=== PATIENT | female | born 1980 | race Hispanic/Latino ===

== ENCOUNTER 2016-07-17 17:45 | Inpatient (IN) | payer OTHER ==
[2016-07-17 18:03] VITALS: BMI 32.9
[2016-07-17] MEDS ORDERED: Sodium Chloride 0.9% 1,000 ML IV STA (18:58)
[2016-07-17 19:38] LABS: ADD MANUAL DIFF? NO
[2016-07-17 19:38] LABS: URINE BILIRUBIN NEGATIVE (NEGATIVE); URINE BLOOD LARGE (NEGATIVE); URINE GLUCOSE (UA) NEGATIVE (NEGATIVE); URINE KETONE NEGATIVE (NEGATIVE); URINE LEUKOCYTE ESTERASE SMALL Leu/uL (NEGATIVE); URINE PROTEIN 30 mg/dL (<30 mg/dL); URINE UROBILINOGEN 0.2 E.U./dL (<1 E.U./dL)
[2016-07-17 19:43] LABS: BASO # 0.02 K/mm3 (0.0-2.0); BASO % 0.1 % (0.0-3.0); EOS # 0.1 (0.0-0.7); EOS % 0.6 % (1.5-5.0); GRAN # 12.57 (1.4-6.5); GRAN % 83.9 % (50.0-68.0); LYMPH # 1.4 (1.2-3.4); LYMPH % 9.1 % (22.0-35.0); MEAN CORPUSCULAR HGB CONC 32.9 g/dl (31.0-37.0); MEAN PLATELET VOLUME 11.4 fl (7.0-11.0); MONO # 0.9 (0.1-0.6); MONO % 6.3 % (1.0-6.0); PLATELET COUNT 261 10^3/uL (120.0-450.0); RED CELL DISTRIBUTION WIDTH 14.4 % (11.5-14.5)
[2016-07-17 19:52] LABS: URINE APPEARANCE SL CLOUDY (CLEAR); URINE COLOR YELLOW (YELLOW)
[2016-07-17 19:58] LABS: URINE WBC 25 - 30 /hpf (0-6)
[2016-07-17 19:59] LABS: URINE BACTERIA LARGE (NEG)
[2016-07-17 20:05] LABS: INR 0.99 (0.93-1.08); PARTIAL THROMBOPLASTIN TIME 26.5 Seconds (23.7-30.8)
--- NOTE | 2016-07-17 20:40 | CT ---
EXAM: CT Abdomen and Pelvis Without Intravenous Contrast CLINICAL HISTORY: 35 years old, female; Pain; Abdominal pain; Flank; Right; Prior surgery; Surgery date: 6+ months; Surgery type: ; Additional info: Right back/abdominal pain TECHNIQUE: Axial computed tomography images of the abdomen and pelvis without intravenous contrast. This CT exam was performed using one or more of the following dose reduction techniques: automated exposure control, adjustment of the mA and/or kV according to patient size, and/or use of iterative reconstruction technique. Coronal and sagittal reformatted images were created and reviewed. EXAM DATE/TIME: 07/17/2016 6:59 PM COMPARISON: There are no prior studies for comparison. FINDINGS: Lower thorax: Heart size is normal. There is dependent atelectasis at the lung bases. There is a small hiatal hernia. ABDOMEN: Liver: unremarkable Gallbladder and bile ducts: Gallbladder is poorly visualized and appears collapsed. Common bile duct is unremarkable. Pancreas: unremarkable Spleen: unremarkable Adrenals: unremarkable Kidneys and ureters: There are bilateral nonobstructing renal stones. There is obstructive uropathy on the right. There is a 7 mm stone at the right ureterovesical junction. Left kidney and ureter are unremarkable. Stomach and bowel: Stomach is partially distended with semisolid food. Rotation is normal. There is no obstruction. Appendix is unremarkable. Terminal ileum is unremarkable.Colon is incompletely distended which limits evaluation. Appendix: See above. PELVIS: Bladder: Bladder is partially distended. Reproductive: Uterus and adnexal structures are unremarkable. ABDOMEN and PELVIS: Intraperitoneal space: There is no free air or free fluid. Bones/joints: There are no acute osseous abnormalities Soft tissues: There is a small fat containing umbilical hernia. Aorta and inferior vena cava are unremarkable. There are multiple small collateral vessels in the groin. Vasculature: There are calcified phleboliths. Lymph nodes: There is shotty adenopathy. IMPRESSION: 7 mm obstructing stone, right ureterovesical junction; small bilateral nonobstructing renal stones Additional findings as described above.
[2016-07-17 22:08] LABS: ALB/GLOB RATIO 1.1 (1.1-1.8); ALKALINE PHOSPHATASE 106 U/L (38-133); ALT/SGPT 43 U/L (7-56); AST/SGOT 26 U/L (15-39); BILIRUBIN,TOTAL 0.6 mg/dL (0.2-1.3); BLOOD UREA NITROGEN 10 mg/dL (7-21); CALCIUM 8.9 mg/dL (8.4-10.5); CARBON DIOXIDE 27 mmol/L (21-33); CHLORIDE 104 mmol/L (98-107); GFR AFRICAN-AMERICAN > 60; GLUCOSE,RANDOM 142 mg/dL (70-110); POTASSIUM 3.9 mmol/L (3.6-5.0); SODIUM 139 mmol/L (132-148); TOTAL PROTEIN 7.3 g/dL (5.8-8.3)
[2016-07-17] MEDS ORDERED: Morphine 4 mg/ml ISec IVP STA (23:11)
[2016-07-17] MEDS ORDERED: Morphine 4 mg/ml ISec ONE (23:16)
[2016-07-18] MEDS ORDERED: Propofol 10 mg/ml Inj (20 ML) ONE (16:18)
[2016-07-18] MEDS ORDERED: Midazolam 2 MG/2 ML VIAL ONE (16:18)
[2016-07-18] MEDS ORDERED: Iohexol 240 (50 ml) ONE (16:26)
[2016-07-18] MEDS ORDERED: cefTRIAXone (Rocephin) 1 gm Inj ONE (16:32)
[2016-07-18] MEDS ORDERED: Oxycodone/Acetaminophen 5/325 mg Tab PO PRN (22:05)
[2016-07-19] MEDS ORDERED: cefTRIAXone 1 gm 1 GM/100 ML BAG IVPB ONE ×2 (08:00→08:02)
[2016-07-19] MEDS ORDERED: Gentamicin 160 MG in Sodium Chloride 0.9% 100 ML IVPB ONE (09:00)
[2016-07-19 10:33] VITALS: BP 114/64; PULSE 79; RESP 18; TEMP 100; O2SAT 97
[2016-07-19 12:24] LABS: HEMATOCRIT 41.1 % (36.0-48.0); MEAN CELL VOLUME 82.2 fL (80.0-105.0); MEAN CORPUSCULAR HEMOGLOBIN 27.4 pg (25.0-35.0); MEAN CORPUSCULAR HGB CONC 33.3 g/dl (31.0-37.0); MEAN PLATELET VOLUME 10.9 fl (7.0-11.0); RED CELL DISTRIBUTION WIDTH 14.5 % (11.5-14.5); WHITE BLOOD COUNT 11.5 10^3/ul (4.5-11.0)
--- NOTE | 2016-07-19 13:43 | RAD ---
PROCEDURE: Fluoroscopy up to 1 hour HISTORY: RETROGRADE / RIGHT STENT INSERTION COMPARISON: TECHNIQUE: Fluoroscopy was provided in the operating room. 41 seconds of fluoroscopy time were used. The study was performed by Dr. Mihir Bain. 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 There is a single dilated ureter. There is placement of a right ureteral stent IMPRESSION: As above
[2016-07-19 14:49] LABS: ALKALINE PHOSPHATASE 111 U/L (38-133); ALT/SGPT 61 U/L (7-56); AST/SGOT 32 U/L (15-39); BILIRUBIN,TOTAL 1.1 mg/dL (0.2-1.3); BLOOD UREA NITROGEN 10 mg/dL (7-21); CALCIUM 9.1 mg/dL (8.4-10.5); CARBON DIOXIDE 26 mmol/L (21-33); CHLORIDE 104 mmol/L (98-107); GFR AFRICAN-AMERICAN > 60; GLUCOSE,RANDOM 97 mg/dL (70-110); POTASSIUM 3.4 mmol/L (3.6-5.0); SODIUM 140 mmol/L (132-148); TOTAL PROTEIN 7.5 g/dL (5.8-8.3)
--- NOTE | 2016-07-22 15:40 | OP ---
PROCEDURE DATE: 07/18/2016 PREOPERATIVE DIAGNOSES: Urolithiasis, severe renal colic, kidney stone, 7 mm obstructing stone. POSTOPERATIVE DIAGNOSES: Urolithiasis, severe renal colic, kidney stone, 7 mm obstructing stone. PROCEDURE: Exam under anesthesia, cystoscopy, retrograde pyelogram, insertion of double-J stent. COMPLICATIONS: There were no complications. BLOOD LOSS: Less than 10 mL. At termination of procedure, the double-J stent is in good location. FINDINGS: A ureteral stone and hydronephrosis. INDICATIONS: See the ____ for the details and the consultation. Very pleasant lady presented yester day with severe renal colic and severe pain. She is now still having ongoing pain. We discussed options and we discussed ESWL. We discussed cyst o, stent insertion. With the ongoing pain and the obstruction, we are here now for the above procedu re. PROCEDURE: After obtaining informed consent, the patient placed on the table, routine monitors place d, timeouts were called to confirm patient and positioning. The neurourologist film was performed. Cystoscope via the urethra, identified the ureteral orifice. Retrograde pyelogram is performed. Wir e is passed up to the kidney. Double-J stent is then inserted. There were no complications. The patient tolerated without complication. See the consultation note and see the plans. I discussed options with the patient. The plan is for an outpatient ESWL in [place] and then further plans will follow. Mihir Bain MD cc: [id number] TT: 07/22/2016 15:39:37 sn
--- NOTE | 2016-07-23 08:14 | CON ---
DATE: 07/18/2016 REASON FOR CONSULTATION: Severe renal colic. A very pleasant lady who is presenting with severe renal colic. We discussed options with the patien t. See below. We are going to bring her to the OR now. The patient is a very pleasant lady. She has no history of stones. She is 35 years old. She has [employer]. She works as a ____. She came in with severe renal colic, found a stone and we discussed options and she is now going to _ ___. See the plans listed below in the consult. PAST MEDICAL AND SURGICAL HISTORY: As listed on the chart. REVIEW OF SYSTEMS: As above. SOCIAL HISTORY: Unremarkable. PHYSICAL EXAMINATION: GENERAL: Well-nourished female. She is currently resting comfortably. The physical exam is otherwise unremarkable. No real CVA tenderness. Pelvic exam shows ____ no pelvic or rectal masses. LABORATORIES: See chart. CT scan, see chart. ____ stone, hydro, severe pain. We discussed options with the patient. The plan from a urology standpoint is emergency to the operating room. We are going to do a cysto, s tent insertion. I explained to the patient that most likely we will not be touching the stone today. I just want to drain the kidney and then further plans will follow. We discussed risks, benefits,___ _. We discussed ESWL. We discussed cysto, stent. ____ ureteroscopy, lithotripsy. Discussed all th e different options, open surgery even but we mentioned to her that I think the best ____ for the pat ient will be for a cysto and a stent insertion and then further plans will follow depending on findin gs. I did explain if the stone has moved forward, if the stone is in such a position that we can get it out, we certainly will. But, otherwise, most likely we are just going to plan for a cysto and a stent insertion. Mihir Bain MD cc: [id number] TT: 07/22/2016 15:46:52 Confirmation # [id number] Dictation # [id number] sn
--- NOTE | 2016-08-05 10:12 | OP ---
PROCEDURE DATE: 08/05/2016 PREOPERATIVE DIAGNOSES: Urolithiasis, hematuria, hydronephrosis, severe flank pain. POSTOPERATIVE DIAGNOSES: Urolithiasis, hematuria, hydronephrosis, severe flank pain. PROCEDURES: Examination under anesthesia, cystoscopy, right retrograde pyelogram, insertion of right double-J stent. SURGEON: Dr. Mihir Bain. COMPLICATIONS: There were no complications. INDICATIONS: See history and physical for further details and consultation. A very pleasant lady wh o presents with severe renal colic. We discussed options with the patient and we are planning to place a stent. After discussing the risks, benefits and treatment alternatives including cystoscopy, ureteroscopy, l aser lithotripsy, all the various options were discussed with the patient. After discussing those op tions with the patient, the patient is here for the above procedure. DESCRIPTION OF PROCEDURE: After obtaining informed consent, the patient was placed on the table, rout ine monitors placed, timeouts were called to confirm the patient, the positioning, etc. Hooking Machine Operator films. The films were submitted to radiologist. Cystoscope via the urethra. Ureteral orifices identified. Retrograde pyelograms performed then a do uble-J stent is deployed. At termination of the procedure, we did ____ and it is in good location. The patient tolerated the procedure well without complication. Mihir Bain MD cc: [id number] TT: 08/05/2016 10:11:26 ca
--- NOTE | 2016-10-01 09:26 | DS ---
See history and physical and procedure note. A pleasant lady who came in with renal colic and severe pain and swelling. After discussing all options, risks, benefits and , ------ dictated procedure notes and history and physical. At this point, the patient is stable for discharge home. HOSPITAL COURSE: Identified ------. See previous notes. At the point of discharge, she is stable. Routine monitoring for stone disease, straining urine, hydration, analgesics, and antibiotics are provided to the patient. Risks and benefits of future treatments are all explained in great detail. Mihir Bain MD
== END 2016-07-19 18:22 | disposition home or self-care (01) | DRG 324 ==
LOC: ED 17:45 → ERH 21:32 → 3RSO 07-18 03:36
PROVIDERS: ADMIT Urology; ATTEND Urology
PROC: BT1D1ZZ Fluoroscopy of Right Kidney, Ureter and Bladder using Low Osmolar Contrast (ICD-10-PCS; 2016-07-18)
PROC: 0T768DZ Dilation of Right Ureter with Intraluminal Device, Via Natural or Artificial Opening Endoscopic (ICD-10-PCS; principal; 2016-07-18 15:00)
DX: N13.2 Hydronephrosis with renal and ureteral calculous obstruction (principal)

== ENCOUNTER 2016-07-28 15:58 | Emergency (ER) | payer OTHER ==
[2016-07-28 15:59] VITALS: BMI 32.9
[2016-07-28 16:13] VITALS: TEMP 98.7
[2016-07-28] MEDS ORDERED: Sodium Chloride 0.9% 1,000 ML IV STA (16:20)
--- NOTE | 2016-07-28 16:42 | ED PDOC ---
Arrival/HPI - General Chief Complaint: Back Pain Time Seen by Provider: 07/28/16 16:02 Historian: Patient - History of Present Illness Narrative History of Present Illness (Text): 07/28/16 16:37 This is a 35yo female with history of recent kidney stone on 07/17/16. States she had lithotripsy and stent placement last week. she was scheduled to go back to [place], where the stent was placed on Friday, but decided to come back to the ED today secondary to the persistent and worsening right back/flank pain. States she was not getting relief from the Oxycodone she was given. She denies nausea, vomiting, fever, chills, urinary symptoms, hematuria, any other complaint. Past Medical History - Provider Review Nursing Documentation Reviewed: Yes - Infectious Disease Hx of Infectious Diseases: None - Tetanus Immunization Tetanus Immunization: Unknown - Past Medical History Past Medical History: No Previous - Cardiac Hx Cardiac Disorders: No Hx Angina: No Hx Atrial Fibrillation: No Hx Cardiac Arrhythmia: No Hx Circulatory Problems: No Hx Congestive Heart Failure: No Hx NM: No Hx Heart Murmur: No Hx Heart Transplant: No Hx Hypertension: No Hx Hypotension: No Hx Internal Defibrillator: No Hx Mitral Valve Prolapse: No Hx Pacemaker: No Hx Peripheral Edema: No Hx Peripheral Vascular Disease: No - Pulmonary Hx Respiratory Disorders: No Hx Asthma: No Hx Bronchitis: No Hx Chronic Obstructive Pulmonary Disease (COPD): No Hx Emphysema: No Hx Lung Cancer: No Hx Pneumonia: No Hx Pulmonary Edema: No Hx Pulmonary Embolism: No Hx Respiratory Aspiration: No Hx Respiratory Tract Infection: No Hx Sleep Apnea: No Hx Tuberculosis: No - Neurological Hx Neurological Disorder: No Hx Alzheimer's Disease: No HX Cerebrovascular Accident: No Hx Dementia: No Hx Dizziness: No Hx Meningitis: No Hx Migraine: No Hx Multiple Sclerosis: No Hx Paralysis: No Hx Parkinson's Disease: No Hx Seizures: No Hx Syncope: No Hx Transient Ischemic Attacks (TIA): No Hx Vertigo: No - HEENT Hx HEENT Disorder: Yes Hx Blind: No Hx Cataracts: No Hx Deafness: No Hx Difficulty Chewing: No Hx Epistaxis: No Hx Glaucoma: No Hx Macular Degeneration: No Other/Comment: HEARING IMPAIRED - Renal Hx Renal Disorder: No Hx Dialysis: No Hx Kidney Stones: No Hx Neurogenic Bladder: No Hx Pyelonephritis: No Hx Renal Cancer: No Hx Renal Failure: No - Endocrine/Metabolic Hx Endocrine Disorders: Yes Hx Adrenal Cancer: No Hx Diabetes Insipidus: No (gestational on this ) - Hematological/Oncological Hx Blood Disorders: No - Integumentary Hx Dermatological Disorder: No - Musculoskeletal/Rheumatological Hx Musculoskeletal Disorders: Yes Other/Comment: HEEL SPURS - Gastrointestinal Hx Gastrointestinal Disorders: No - Genitourinary/Gynecological Hx Genitourinary Disorders: No - Psychiatric Hx Psychophysiologic Disorder: No Hx Depression: No Hx Emotional Abuse: No Hx Physical Abuse: No Hx Substance Use: No - Past Surgical History Past Surgical History: No Previous - Surgical History Hx Section: Yes Other/Comment: right kidney stent - Anesthesia Hx Anesthesia: Yes - Suicidal Assessment Feels Threatened In Home Enviroment: No Family/Social History - Physician Review Nursing Documentation Reviewed: Yes Family/Social History: Unknown Family HX Smoking Status: Never Smoked Hx Alcohol Use: No Hx Substance Use: No Hx Substance Use Treatment: No Allergies/Home Meds Allergies/Adverse Reactions: Allergies No Known Allergies Allergy (Verified 07/28/16 16:10) Review of Systems - Physician Review All systems were reviewed & negative as marked: Yes - Review of Systems Constitutional: Normal Eyes: Normal ENT: Normal Respiratory: Normal Cardiovascular: Normal Gastrointestinal: Abdominal Pain (right flank pain). absent: Constipation, Diarrhea, Nausea, Vomiting, Hematochezia, Hematemesis Genitourinary Female: Normal Musculoskeletal: Back Pain Skin: Normal Neurological: Normal Endocrine: Normal Hemo/Lymphatic: Normal Psychiatric: Normal Physical Exam Vital Signs Reviewed: Yes Vital Signs Temp Pulse Resp BP Pulse Ox 07/28/16 16:12 98.7 F 94 H 17 122/93 H 96 Temperature: Afebrile Blood Pressure: Normal Pulse: Regular Respiratory Rate: Normal Appearance: Positive for: Well-Appearing, Non-Toxic, Comfortable Pain Distress: None Mental Status: Positive for: Alert and Oriented X 3 - Systems Exam Head: Present: Atraumatic, Normocephalic Pupils: Present: PERRL Extroacular Muscles: Present: EOMI Conjunctiva: Present: Normal Mouth: Present: Moist Mucous Membranes Neck: Present: Normal Range of Motion Respiratory/Chest: Present: Clear to Auscultation, Good Air Exchange. No: Respiratory Distress, Accessory Muscle Use Cardiovascular: Present: Regular Rate and Rhythm, Normal S1, S2. No: Murmurs Abdomen: Present: Normal Bowel Sounds. No: Tenderness, Distention, Peritoneal Signs, Rebound, Guarding, McBurney's Point Tender, Rovsing's Sign Present Back: Present: CVA Tenderness (Right CVAT). No: Midline Tenderness, Paraspinal Tenderness Upper Extremity: Present: Normal Inspection. No: Cyanosis, Edema Lower Extremity: Present: Normal Inspection. No: Edema Neurological: Present: GCS=15, CN II-XII Intact, Speech Normal Skin: Present: Warm, Dry, Normal Color. No: Rashes Psychiatric: Present: Alert, Oriented x 3, Normal Insight, Normal Concentration Medical Decision Making ED Course and Treatment: 07/28/16 17:15 IMPRESSION: Status post double-J catheter placement on the right in good position. Previously identified distal right ureteral calculus is no longer seen. Edematous right ureter. Persistent right hydronephrosis. Stable multiple small less than 4 mm and bilateral upper tract calculi. 07/28/16 17:28 PT presented with stated history. Her pain was controlled in ED. PT mentioned that she was nervous because she met somebody that had similar procedure who told her that her stent moved on re evaluation. The CT result was however DW the pt and she was re assured. Result and finding was DW the [place]. He states patient should be DC home. States he plan to take out the stent on Friday. He recommends that pt should be DC home and advised to continue with her current medication. Pt have 2tabs of percocet left. she will be DC home with #7tabs of percocet and advised to mix it with Ibuprofen. Advised to f/u with Dr. bain. TRT ED for any new or worsening symptoms. She expressed understanding all all instructions. She is currently on abx. Advised to continue with the abx. - Lab Interpretations Lab Results: 07/28/16 16:40 07/28/16 16:40 Lab Results 07/28/16 16:55: Urine HCG, Qual Negative 07/28/16 16:55: Urine Color Red, Urine Appearance Bloody, Urine pH 7.0, Ur Specific [place] 1.020, Urine Protein >=300 H, Urine Glucose (UA) Negative, Urine Ketones Trace H, Urine Blood Large H, Urine Nitrate Positive H, Urine Bilirubin Moderate H, Urine Urobilinogen 1.0 H, Ur Leukocyte Esterase Moderate H , Urine RBC Tntc, Urine WBC 2 - 5, Ur Epithelial Cells 1 - 3, Urine Bacteria Mod 07/28/16 16:40: Sodium 138, Potassium 4.0, Chloride 101, Carbon Dioxide 27, Anion Gap 14, BUN 10, Creatinine 0.5, Est GFR ( Amer) > 60, Est GFR (Non- Af Amer) > 60, Random Glucose 124 H, Calcium 9.8, Total Bilirubin 0.6, AST 35, ALT 89 H, Alkaline Phosphatase 127, Total Protein 7.8, Albumin 4.3, Globulin 3.5 , Albumin/Globulin Ratio 1.2 07/28/16 16:40: WBC 10.2, RBC 5.39, Hgb 14.6, Hct 43.6, MCV 80.9, MCH 27.1, MCHC 33.5, RDW 13.7, Plt Count 306, MPV 11.0, Gran % 74.8 H, Lymph % (Auto) 16.9 L, Quay % (Auto) 6.6 H, Eos % (Auto) 1.5, Baso % (Auto) 0.2, Gran # 7.63 H , Lymph # 1.7, Quay # 0.7 H, Eos # 0.2, Baso # 0.02 - RAD Interpretation Radiology Orders: 07/28/16 16:19 ABD & PELVIS W/O PO OR IV CONT [CT] Stat - Medication Orders Current Medication Orders: Discontinued Medications Sodium Chloride (Sodium Chloride 0.9%) 1,000 mls @ 999 mls/hr IV .Q1H1M STA Stop: 07/28/16 17:20 Last Admin: 07/28/16 16:43 Dose: 999 mls/hr Ketorolac Tromethamine (Toradol) 30 mg IVP STAT STA Stop: 07/28/16 16:21 Last Admin: 07/28/16 16:42 Dose: 30 mg Disposition/Present on Arrival - Present on Arrival Any Indicators Present on Arrival: No History of DVT/PE: No History of Uncontrolled Diabetes: No Urinary Catheter: No History of Decub. Ulcer: No History Surgical Site Infection Following: None - Disposition Have Diagnosis and Disposition been Completed?: Yes Diagnosis: Renal colic Disposition: HOME/ ROUTINE Disposition Time: 17:35 Patient Plan: Discharge Condition: STABLE Discharge Instructions (ExitCare): Renal Colic (ED) Additional Instructions: Follow up with Dr. bain continue with your medications Return to ED for any new or worsening symptoms Prescriptions: oxyCODONE/Acetaminophen [Percocet 5/325 mg Tab] 1 ea PO Q6 #7 tab Referrals: Ilia Franks JD, MD [Primary Care Provider] - Follow up with primary Rishabh Bain MD [Staff Provider] - Follow up with primary
[2016-07-28 16:48] LABS: ADD MANUAL DIFF? NO
[2016-07-28 16:50] LABS: BASO # 0.02 K/mm3 (0.0-2.0); BASO % 0.2 % (0.0-3.0); EOS # 0.2 (0.0-0.7); EOS % 1.5 % (1.5-5.0); GRAN # 7.63 (1.4-6.5); GRAN % 74.8 % (50.0-68.0); HEMATOCRIT 43.6 % (36.0-48.0); LYMPH # 1.7 (1.2-3.4); LYMPH % 16.9 % (22.0-35.0); MEAN CELL VOLUME 80.9 fL (80.0-105.0); MEAN CORPUSCULAR HEMOGLOBIN 27.1 pg (25.0-35.0); MEAN CORPUSCULAR HGB CONC 33.5 g/dl (31.0-37.0); MONO # 0.7 (0.1-0.6); MONO % 6.6 % (1.0-6.0); PLATELET COUNT 306 10^3/uL (120.0-450.0); RED CELL DISTRIBUTION WIDTH 13.7 % (11.5-14.5); WHITE BLOOD COUNT 10.2 10^3/ul (4.5-11.0)
[2016-07-28 17:01] LABS: ALB/GLOB RATIO 1.2 (1.1-1.8); ALKALINE PHOSPHATASE 127 U/L (38-133); ALT/SGPT 89 U/L (7-56); AST/SGOT 35 U/L (15-39); BILIRUBIN,TOTAL 0.6 mg/dL (0.2-1.3); BLOOD UREA NITROGEN 10 mg/dL (7-21); CALCIUM 9.8 mg/dL (8.4-10.5); CARBON DIOXIDE 27 mmol/L (21-33); CHLORIDE 101 mmol/L (98-107); GFR AFRICAN-AMERICAN > 60; GLUCOSE,RANDOM 124 mg/dL (70-110); SODIUM 138 mmol/L (132-148); TOTAL PROTEIN 7.8 g/dL (5.8-8.3)
[2016-07-28 17:06] LABS: URINE BILIRUBIN MODERATE (NEGATIVE); URINE BLOOD LARGE (NEGATIVE); URINE GLUCOSE (UA) NEGATIVE (NEGATIVE); URINE KETONE TRACE mg/dL (NEGATIVE); URINE LEUKOCYTE ESTERASE MODERATE Leu/uL (NEGATIVE); URINE PROTEIN >=300 mg/dL (<30 mg/dL)
[2016-07-28 17:09] LABS: URINE APPEARANCE BLOODY (CLEAR); URINE COLOR RED (YELLOW)
--- NOTE | 2016-07-28 17:11 | CT ---
PROCEDURE: CT Abdomen and Pelvis without intravenous or oral contrast HISTORY: Right flank pain Relevant interventional procedure(s): Right stent insertion performed 07/18/2016 COMPARISON: 07/17/2016. CT abdomen and pelvis. Summary of findings on the comparison examination 7 mm obstructing stone, right ureterovesical junction; small bilateral nonobstructing renal stones TECHNIQUE: Technique Contiguous axial images of the abdomen and pelvis without intravenous or oral contrast. Radiation dose: Total exam DLP = 619.43 mGy-cm. This CT exam was performed using one or more of the following dose reduction techniques: Automated exposure control, adjustment of the mA and/or kV according to patient size, and/or use of iterative reconstruction technique. FINDINGS: LOWER THORAX: Unremarkable. LIVER: Unremarkable. GALLBLADDER AND BILE DUCTS: Unremarkable. PANCREAS: Unremarkable. No ductal dilatation. SPLEEN: Unremarkable. No splenomegaly. ADRENALS: Unremarkable. KIDNEYS AND URETERS: Previously identified distal ureteral calculus right ureterovesical junction is no longer seen. Satisfactory position of double-J stent on the right. Persistent right hydroureter, hydronephrosis. The right ureter remains dilated and edematous. Stable upper tract calculi bilaterally. BLADDER: Unremarkable. No calculus. REPRODUCTIVE: Unremarkable. APPENDIX: No abnormalities to suggest acute appendicitis. No right lower quadrant inflammatory processes identified. STOMACH AND BOWEL: Unremarkable. No obstruction. No gross mural thickening. PERITONEUM: Unremarkable. No significant fluid collection. No free air. LYMPH NODES: Unremarkable. No enlarged lymph nodes. VASCULATURE: Unremarkable. No aortic aneurysm. BONES: No acute fracture. OTHER FINDINGS: None . IMPRESSION: Status post double-J catheter placement on the right in good position. Previously identified distal right ureteral calculus is no longer seen. Edematous right ureter. Persistent right hydronephrosis. Stable multiple small less than 4 mm and bilateral upper tract calculi.
[2016-07-28 17:18] LABS: URINE RBC TNTC /hpf (0-2)
[2016-07-28 17:19] LABS: URINE BACTERIA MOD (NEG)
[2016-07-28 17:54] VITALS: BP 118/76; PULSE 86; RESP 18; O2SAT 98
== END 2016-07-28 17:54 | disposition home or self-care (01) ==
LOC: ED 15:58
DX: N23 Unspecified renal colic (principal)
CPT/HCPCS: 74176; 80053; 81001; 84703; 85025; 87086; 96361; 96374; 99283; J1885; J7040

== ENCOUNTER 2016-10-01 22:35 | Observation (INO) | payer OTHER ==
[2016-10-01 22:36] VITALS: BMI 32.9
--- NOTE | 2016-10-01 23:11 | ED PDOC ---
Arrival/HPI - General Historian: Patient <Ankur Dillard - Last Filed: 10/02/16 02:03> <Ronak Cornell - Last Filed: 10/02/16 03:08> - General Chief Complaint: Back Pain Time Seen by Provider: 10/01/16 22:58 - History of Present Illness Narrative History of Present Illness (Text): 10/01/16 23:37 36yo F with PMHx significant for kidney stones here for evaluation of right flank pain. Patient states that she has had right sided kidney stones in July 2016, was treated with uretral stent and lithrotripsy by Dr. James Bain. She has been doing fine since then, stent was removed after 1 week s/p lithotripsy and she is scheduled for follow up with Dr. Bain in November. Patient states that she has started to have similar right sided flank pain for the past two days. Pain feels like dull, squeezing type of pain, does not radiate. She also c/o urinary frequency and urgency. Denies any dysuria. No fevers, no chills. No CP/SOB. No Nausea, no vomiting, no abdominal pain. Urologist: James Bain PMD: Josi Franks PMHx: Kidney Stones PSHx: R Ureteral stent (removed), Lithotripsy NKDA (Ankur Dillard) Past Medical History - Provider Review Nursing Documentation Reviewed: Yes - Infectious Disease Hx of Infectious Diseases: None - Tetanus Immunization Tetanus Immunization: Unknown - Past Medical History Past Medical History: No Previous - Cardiac Hx Cardiac Disorders: No Hx Angina: No Hx Atrial Fibrillation: No Hx Cardiac Arrhythmia: No Hx Circulatory Problems: No Hx Congestive Heart Failure: No Hx [place]: No Hx Heart Murmur: No Hx Heart Transplant: No Hx Hypertension: No Hx Hypotension: No Hx Internal Defibrillator: No Hx Mitral Valve Prolapse: No Hx Pacemaker: No Hx Peripheral Edema: No Hx Peripheral Vascular Disease: No - Pulmonary Hx Respiratory Disorders: No Hx Asthma: No Hx Bronchitis: No Hx Chronic Obstructive Pulmonary Disease (COPD): No Hx Emphysema: No Hx Lung Cancer: No Hx Pneumonia: No Hx Pulmonary Edema: No Hx Pulmonary Embolism: No Hx Respiratory Aspiration: No Hx Respiratory Tract Infection: No Hx Sleep Apnea: No Hx Tuberculosis: No - Neurological Hx Neurological Disorder: No Hx Alzheimer's Disease: No HX Cerebrovascular Accident: No Hx Dementia: No Hx Dizziness: No Hx Meningitis: No Hx Migraine: No Hx Multiple Sclerosis: No Hx Paralysis: No Hx Parkinson's Disease: No Hx Seizures: No Hx Syncope: No Hx Transient Ischemic Attacks (TIA): No Hx Vertigo: No - HEENT Hx HEENT Disorder: Yes Hx Blind: No Hx Cataracts: No Hx Deafness: No Hx Difficulty Chewing: No Hx Epistaxis: No Hx Glaucoma: No Hx Macular Degeneration: No Other/Comment: HEARING IMPAIRED - Renal Hx Renal Disorder: No Hx Dialysis: No Hx Kidney Stones: Yes Hx Neurogenic Bladder: No Hx Pyelonephritis: No Hx Renal Cancer: No Hx Renal Failure: No - Endocrine/Metabolic Hx Endocrine Disorders: Yes Hx Adrenal Cancer: No Hx Diabetes Insipidus: No (gestational on this ) - Hematological/Oncological Hx Blood Disorders: No - Integumentary Hx Dermatological Disorder: No - Musculoskeletal/Rheumatological Hx Musculoskeletal Disorders: Yes Other/Comment: HEEL SPURS - Gastrointestinal Hx Gastrointestinal Disorders: No - Genitourinary/Gynecological Hx Genitourinary Disorders: No - Psychiatric Hx Psychophysiologic Disorder: No Hx Depression: No Hx Emotional Abuse: No Hx Physical Abuse: No Hx Substance Use: No - Past Surgical History Past Surgical History: No Previous - Surgical History Hx Section: Yes Other/Comment: right kidney stent - Anesthesia Hx Anesthesia: Yes - Suicidal Assessment Feels Threatened In Home Enviroment: No <Ankur Dillard - Last Filed: 10/02/16 02:03> Family/Social History - Physician Review Nursing Documentation Reviewed: Yes Family/Social History: No Known Family HX Smoking Status: Never Smoked Hx Alcohol Use: No Hx Substance Use: No Hx Substance Use Treatment: No <Ankur Dillard - Last Filed: 10/02/16 02:03> Allergies/Home Meds <Ankur Dillard - Last Filed: 10/02/16 02:03> <Ronak Cornell - Last Filed: 10/02/16 03:08> Allergies/Adverse Reactions: Allergies No Known Allergies Allergy (Verified 07/28/16 16:10) Home Medications: Home Meds Medication Instructions Recorded Confirmed No Known Home Med 10/01/16 10/01/16 Review of Systems - Physician Review All systems were reviewed & negative as marked: Yes - Review of Systems Constitutional: absent: Fevers Gastrointestinal: absent: Diarrhea, Nausea, Vomiting Genitourinary Female: Frequency. absent: Dysuria <Ankur Dillard - Last Filed: 10/02/16 02:03> Physical Exam - Systems Exam Head: Present: Atraumatic, Normocephalic Extroacular Muscles: Present: EOMI Conjunctiva: Present: Normal Mouth: Present: Moist Mucous Membranes Neck: Present: Normal Range of Motion Respiratory/Chest: Present: Clear to Auscultation, Good Air Exchange. No: Respiratory Distress, Accessory Muscle Use, Wheezes, Rhonchi Cardiovascular: Present: Normal S1, S2 Abdomen: Present: Normal Bowel Sounds. No: Tenderness, Distention, Peritoneal Signs, Rebound, Guarding Back: Present: CVA Tenderness (Right sided CVA tenderness) Lower Extremity: Present: Normal Inspection. No: Edema, CALF TENDERNESS Neurological: Present: GCS=15 Skin: Present: Warm, Dry, Normal Color Psychiatric: Present: Alert, Oriented x 3 <Ankur Dillard - Last Filed: 10/02/16 02:03> Medical Decision Making <Ankur Dillard - Last Filed: 10/02/16 02:03> <Ronak Cornell - Last Filed: 10/02/16 03:08> ED Course and Treatment: 10/01/16 23:48 36yo F with R Flank pain - Toradol - CT Abd/pelvis - UA, Urine HCG - CBC/CMP 10/02/16 02:00 CT - Right hydronephrosis, 5mm ureteral calc at UV jxn Call placed to Dr. Josi Franks's service 10/02/16 02:[address] Franks. He accepts the patient to his service. He agrees with IVF, IV Abx and Urology consult. Patient to be admitted to Med/Surg. 10/02/16 02:04 Discussed case with Patient. She understands and agrees with plan. All questions and concerns addressed. (Ankur Dillard) In agreement with resident note which contains more details about the patient. Patient was seen and evaluated with resident. Came up with plan and treatment together. Patient is a 36 year old female who presents to the emergency department complaining of right flank pain. CT shows renal colic. Case discussed with Dr. Franks who is aware and agrees with the plan to admit patient to medsurg. (Ronak Cornell) - Lab Interpretations Lab Results: 10/01/16 23:58 10/01/16 23:58 Lab Results 10/01/16 23:58: Urine Color Yellow, Urine Appearance Sl cloudy, Urine pH 7.5, Ur Specific [place] 1.015, Urine Protein Negative, Urine Glucose (UA) Negative, Urine Ketones Negative, Urine Blood Trace-intact H, Urine Nitrate Negative, Urine Bilirubin Negative, Urine Urobilinogen 0.2, Ur Leukocyte Esterase Negative , Urine RBC 0 - 2, Urine WBC 0 - 2, Ur Epithelial Cells 0 - 2, Amorphous Sediment Small, Urine HCG, Qual Negative 10/01/16 23:58: Sodium 140, Potassium 4.0, Chloride 102, Carbon Dioxide 29, Anion Gap 13, BUN 11, Creatinine 0.6, Est GFR ( Amer) > 60, Est GFR (Non- Af Amer) > 60, Random Glucose 132 H, Calcium 9.4, Total Bilirubin 0.5, AST 22, ALT 44, Alkaline Phosphatase 103, Total Protein 7.4, Albumin 4.0, Globulin 3.3, Albumin/Globulin Ratio 1.2 10/01/16 23:58: WBC 9.9, RBC 5.12, Hgb 13.9, Hct 42.5, MCV 83.0, MCH 27.1, MCHC 32.7, RDW 14.4, Plt Count 241, MPV 10.9, Gran % 67.9, Lymph % (Auto) 22.5, [place] % (Auto) 8.3 H, Eos % (Auto) 1.1 L, Baso % (Auto) 0.2, Gran # 6.75 H, Lymph # 2.2, [place] # 0.8 H, Eos # 0.1, Baso # 0.02 - RAD Interpretation Radiology Orders: 10/01/16 23:19 ABD & PELVIS W/O PO OR IV CONT [CT] Stat - Medication Orders Current Medication Orders: Sodium Chloride (Sodium Chloride 0.9%) 1,000 mls @ 100 mls/hr IV .Q10H [facility] Last Admin: 10/02/16 02:38 Dose: 100 mls/hr Ceftriaxone Sodium (Rocephin 1 Gram Ivpb) 1 gm in 100 mls @ 100 mls/hr IVPB DAILY [facility] PRN Reason: Protocol Morphine Sulfate (Morphine) 2 mg IVP Q4H PRN PRN Reason: Pain, moderate (4-7) Ondansetron HCl (Zofran Inj) 4 mg IVP Q6H PRN PRN Reason: Nausea/Vomiting Discontinued Medications Ketorolac Tromethamine (Toradol) 30 mg IVP STAT STA Stop: 10/01/16 23:22 Last Admin: 10/02/16 00:17 Dose: 30 mg <Ankur Dillard - Last Filed: 10/02/16 02:03> - PA / ADMITTING OFFICE ESCORT / Resident Statement / has reviewed & agrees with the documentation as recorded. / has examined the patient and agrees with the treatment plan. <Ronak Cornell - Last Filed: 10/02/16 03:08> - Scribe Statement Jodi Orr Provider Scribe Attestation: All medical record entries made by the Scribe were at my direction and personally dictated by me. I have reviewed the chart and agree that the record accurately reflects my personal performance of the history, physical exam, medical decision making, and the department course for this patient. I have also personally directed, reviewed, and agree with the discharge instructions and disposition. (Ronak Cornell) Disposition/Present on Arrival - Present on Arrival Any Indicators Present on Arrival: No History of DVT/PE: No History of Uncontrolled Diabetes: No Urinary Catheter: No History of Decub. Ulcer: No History Surgical Site Infection Following: None - Disposition Have Diagnosis and Disposition been Completed?: No Disposition Time: 02:06 Patient Plan: Admission <Ankur Dillard - Last Filed: 10/02/16 02:03> <Ronak Cornell - Last Filed: 10/02/16 03:08> - Disposition Diagnosis: Kidney stone Disposition: HOSPITALIZED Patient Problems: Current Active Problems Problem Status Onset Kidney stone Acute Condition: GOOD
[2016-10-02 00:20] VITALS: TEMP 98
[2016-10-02 00:25] LABS: PH,URINE 7.5 (4.7-8.0); URINE BILIRUBIN NEGATIVE (NEGATIVE); URINE BLOOD TRACE-INTACT (NEGATIVE); URINE GLUCOSE (UA) NEGATIVE (NEGATIVE); URINE LEUKOCYTE ESTERASE NEGATIVE Leu/uL (NEGATIVE); URINE NITRATE NEGATIVE (NEGATIVE); URINE PROTEIN NEGATIVE mg/dL (<30 mg/dL); URINE UROBILINOGEN 0.2 E.U./dL (<1 E.U./dL)
[2016-10-02 00:26] LABS: BASO # 0.02 K/mm3 (0.0-2.0); BASO % 0.2 % (0.0-3.0); EOS # 0.1 (0.0-0.7); EOS % 1.1 % (1.5-5.0); GRAN # 6.75 (1.4-6.5); GRAN % 67.9 % (50.0-68.0); HEMOGLOBIN 13.9 gm/dL (12.0-16.0); LYMPH # 2.2 (1.2-3.4); LYMPH % 22.5 % (22.0-35.0); MEAN CORPUSCULAR HEMOGLOBIN 27.1 pg (25.0-35.0); MEAN CORPUSCULAR HGB CONC 32.7 g/dl (31.0-37.0); MEAN PLATELET VOLUME 10.9 fl (7.0-11.0); MONO # 0.8 (0.1-0.6); MONO % 8.3 % (1.0-6.0); PLATELET COUNT 241 10^3/uL (120.0-450.0); RBC 5.12 10^6/uL (3.5-6.1); RED CELL DISTRIBUTION WIDTH 14.4 % (11.5-14.5); WHITE BLOOD COUNT 9.9 10^3/ul (4.5-11.0)
[2016-10-02 00:27] LABS: ALB/GLOB RATIO 1.2 (1.1-1.8); ALT/SGPT 44 U/L (7-56); AST/SGOT 22 U/L (15-39); BLOOD UREA NITROGEN 11 mg/dL (7-21); CALCIUM 9.4 mg/dL (8.4-10.5); GFR AFRICAN-AMERICAN > 60; GFR NON-AFRICAN AMERICAN > 60
[2016-10-02 00:30] LABS: HCG,QUALITATIVE URINE NEGATIVE (NEGATIVE); URINE COLOR YELLOW (YELLOW)
[2016-10-02 00:31] LABS: URINE APPEARANCE SL CLOUDY (CLEAR)
[2016-10-02 00:40] LABS: URINE AMORPHOUS SEDIMENT SMALL; URINE EPITHELIAL CELLS 0 - 2 /hpf (0-5); URINE RBC 0 - 2 /hpf (0-2); URINE WBC 0 - 2 /hpf (0-6)
--- NOTE | 2016-10-02 01:39 | CT ---
EXAM: CT Abdomen and Pelvis Without Intravenous Contrast CLINICAL HISTORY: 36 years old, female; Pain; Abdominal pain; Flank; Right; Prior surgery; Surgery date: 1-6 months; Surgery type: Stent; Additional info: R flank pain TECHNIQUE: Axial computed tomography images of the abdomen and pelvis without intravenous contrast. This CT exam was performed using one or more of the following dose reduction techniques: automated exposure control, adjustment of the mA and/or kV according to patient size, and/or use of iterative reconstruction technique. Coronal and sagittal reformatted images were created and reviewed. COMPARISON: CT - ABD PELVIS W/O PO OR IV CONT 07/28/2016 4:53:14 PM FINDINGS: Lower thorax: Scattered cysts or bullae within lung bases. ABDOMEN: Liver: Unremarkable. Gallbladder and bile ducts: No calcified stones. No ductal dilation. Pancreas: Unremarkable. No ductal dilation. Spleen: No splenomegaly. Adrenals: No mass. Kidneys and ureters: Several renal calculi. Duplicated RIGHT renal collecting system. [id number] pelvocaliectasis of RIGHT kidney. Mild to moderately dilated RIGHT ureter. 0.5 x 0.3 x 0.3 cm calculus at or just beyond RIGHT ureterovesical junction. Stomach and bowel: No definite mural thickening. No obstruction. Appendix: Normal caliber. No inflammation. PELVIS: Bladder: Unremarkable. No stones. Reproductive: Unremarkable as visualized. ABDOMEN and PELVIS: Intraperitoneal space: No significant fluid collection. No free air. Bones/joints: No acute fracture. Soft tissues: Tiny umbilical hernia containing fat. Mild varices within inguinal regions. Vasculature: Unremarkable. No aneurysm. Lymph nodes: No pathologically enlarged lymph nodes. IMPRESSION: 1. RIGHT distal ureteral calculus with [id number] hydroureteronephrosis. 2. Incidental/non-acute findings are described above.
[2016-10-02] MEDS ORDERED: Morphine 2 mg/ml ISec IVP PRN (02:07)
[2016-10-02] MEDS ORDERED: Sodium Chloride 0.9% 1,000 ML IV SCH (02:15)
[2016-10-02 02:40] VITALS: BP 115/75
[2016-10-02 03:21] VITALS: O2SAT 99
[2016-10-02 04:23] VITALS: PULSE 64; RESP 20
--- NOTE | 2016-10-02 07:59 | PCM.URO ---
Urology Progress Note - Objective Intake & Output: Intake & Output 10/01/16 10/02/16 10/02/16 18:59 06:59 18:59 Weight 180 lb Vital Signs: Vital Signs - 24 hr 10/02/16 10/02/16 10/02/16 02:39 03:20 04:03 Pulse Rate 69 69 64 Respiratory 18 18 20 Rate Blood Pressure 115/75 O2 Sat by Pulse 98 99 Oximetry
[2016-10-02] MEDS ORDERED: cefTRIAXone 1 gm 1 GM/100 ML BAG IVPB SCH (10:00)
--- NOTE | 2016-10-02 13:19 | CP.PCM.HP ---
<Mei Cook - Last Filed: 10/02/16 13:54> History of Present Illness - History of Present Illness History of Present Illness: Internal medicine H & P for Dr. Jhonatan Cook, PGY-1 Pt S & E at bedside. 36F w/PMH sig for nephrolithiasis s/p stent placement and hearing loss admitted for Right sided flank pain x 1 day. Pain was severe, non radiating, constant. Admits to urinary frequency, sense of incomplete voiding, 1 similar episode in the past with stent placement. Denies N/V/F/C, SOB, CP, changes in bowel habits , other complaints. Patient seen/evaluated after change in attending. PMH: Nephrolithiasis, hearing loss PSH: R ureteral stent All: Denies SH: ETOH on special occasions, denies tobacco or illicit drug use PMD: Ilia Franks Present on Admission - Present on Admission Any Indicators Present on Admission: No History of DVT/PE: No History of Uncontrolled Diabetes: No Urinary Catheter: No Decubitus Ulcer Present: No Review of Systems - Review of Systems All systems: reviewed and no additional remarkable complaints except - Constitutional Constitutional: absent: Chills, Fever, Headache - EENT Eyes: absent: Change in Vision Ears: Decreased Hearing Nose/Mouth/Throat: absent: Nasal Congestion, Sore Throat - Cardiovascular Cardiovascular: absent: Chest Pain, Diaphoresis, Palpitations - Respiratory Respiratory: absent: Cough - Gastrointestinal Gastrointestinal: absent: Abdominal Pain, Belching, Bloating, Constipation, Diarrhea, Hematemesis, Hematochezia, Nausea, Vomiting - Genitourinary Genitourinary: Change in Urinary Stream, Flank Pain, Urinary Frequency. absent : Dysuria, Hematuria - Musculoskeletal Musculoskeletal: absent: Numbness, Tingling - Neurological Neurological: absent: Weakness Past Patient History - Infectious Disease Hx of Infectious Diseases: None - Tetanus Immunizations Tetanus Immunization: Unknown - Past Social History Smoking Status: Never Smoked - CARDIAC Hx Cardiac Disorders: No Hx Angina: No Hx Cardia Arrhythmia: No Hx Circulatory Problems: No Hx Congestive Heart Failure: No Hx Heart Murmur: No Hx Heart Transplant: No Hx Hypertension: No Hx Internal Defibrillator: No Hx Mitral Valve Prolapse: No Hx Pacemaker: No Hx Peripheral Edema: No Hx Peripheral Vascular Disease: No - PULMONARY Hx Respiratory Disorders: No Hx Asthma: No Hx Bronchitis: No Hx Chronic Obstructive Pulmonary Disease (COPD): No Hx Emphysema: No Hx Pneumonia: No Hx Respiratory Aspiration: No Hx Respiratory Tract Infection: No Hx Sleep Apnea: No Hx Tuberculosis: No - NEUROLOGICAL Hx Neurological Disorder: No Hx Alzheimer's Disease: No HX Cerebrovascular Accident: No Hx Dementia: No Hx Dizziness: No Hx Meningitis: No Hx Migraine: No Hx Parkinson's Disease: No Hx Seizures: No Hx Transient Ischemic Attacks (TIA): No - HEENT Hx HEENT Problems: Yes Hx Blind: No Hx Cataracts: No Hx Deafness: No Hx Difficulty Chewing: No Hx Epistaxis: No Hx Glaucoma: No Hx Macular Degeneration: No Other/Comment: HEARING IMPAIRED - RENAL Hx Chronic Kidney Disease: No Hx Dialysis: No Hx Kidney Stones: Yes Hx Neurogenic Bladder: No Hx Pyelonephritis: No Hx Renal (Kidney) Cancer: No Hx Renal Failure: No Other/Comment: PT HAD STENT PUT IN AND REMOVED ONE WEEK AFTER BY DR Medrano - ENDOCRINE/METABOLIC Hx Endocrine Disorders: Yes Hx Adrenal Cancer: No Hx Diabetes Insipidus: No (gestational on this ) - HEMATOLOGICAL/ONCOLOGICAL Hx Blood Disorders: No - INTEGUMENTARY Hx Dermatological Problems: No - MUSCULOSKELETAL/RHEUMATOLOGICAL Hx Musculoskeletal Disorders: Yes Hx Falls: No Other/Comment: HEEL SPURS - GASTROINTESTINAL Hx Gastrointestinal Disorders: No - GENITOURINARY/GYNECOLOGICAL Hx Genitourinary Disorders: No - PSYCHIATRIC Hx Psychophysiologic Disorder: No Hx Depression: No Hx Emotional Abuse: No Hx Physical Abuse: No - SURGICAL HISTORY Hx Surgeries: Yes Other/Comment: right kidney stent - ANESTHESIA Hx Anesthesia: Yes Meds Home Medications: Home Medication List Medication Instructions Recorded Confirmed Type oxyCODONE/Acetaminophen [Percocet 1 ea PO Q6H PRN #15 tab 10/02/16 Rx 5/325 mg Tab] Allergies/Adverse Reactions: Allergies Allergy/AdvReac Type Severity Reaction Status Date / Time No Known Allergies Allergy Verified 07/28/16 16:10 Physical Exam - Constitutional Appears: Non-toxic, No Acute Distress - Head Exam Head Exam: ATRAUMATIC, NORMAL INSPECTION, NORMOCEPHALIC - Eye Exam Eye Exam: EOMI, Normal appearance - ENT Exam ENT Exam: Mucous Membranes Moist, Normal Exam - Neck Exam Neck exam: Positive for: Full Rom, Normal Inspection - Respiratory Exam Respiratory Exam: Clear to Auscultation Bilateral, NORMAL BREATHING PATTERN - Cardiovascular Exam Cardiovascular Exam: REGULAR RHYTHM, +S1, +S2 - GI/Abdominal Exam GI & Abdominal Exam: Normal Bowel Sounds, Soft. absent: Tenderness - Extremities Exam Extremities exam: Positive for: normal inspection - Back Exam Back exam: NORMAL INSPECTION. absent: CVA tenderness (L), CVA tenderness (R), tenderness - Neurological Exam Neurological exam: Alert, CN II-XII Intact, Oriented x3 - Psychiatric Exam Psychiatric exam: Normal Affect, Normal Mood - Skin Skin Exam: Dry, Intact, Normal Color Results - Vital Signs Recent Vital Signs: Last Vital Signs Temp 98.0 F 10/02/16 00:20 Pulse 64 10/02/16 04:03 Resp 20 10/02/16 04:03 BP 115/75 10/02/16 02:39 Pulse Ox 99 10/02/16 03:20 - Labs Result Diagrams: 10/01/16 23:58 10/01/16 23:58 Assessment & Plan - Assessment and Plan (Free Text) Assessment: 36F w/nephrolithiasis Plan: Nephrolithiasis w/hydronephrosis Admit to medicine VS as per protocol IVF Pain mgmt Urology consulted Activity ad jasmina Ambulate Regular diet DW attending Joyce, PGY-1 - Date & Time Date: 10/02/16 Time: 13:23 Decision To Admit - Pt Status Changed To: Hospital Disposition Of: Observation - . Bed Request Type: Med/Surg Admitting Physician: Toño Vital <Toño Vital - Last Filed: 10/02/16 17:06> Results - Vital Signs Recent Vital Signs: Last Vital Signs Temp 98.0 F 10/02/16 00:20 Pulse 64 10/02/16 04:03 Resp 10/02/16 04:03 BP 115/75 10/02/16 02:39 Pulse Ox 99 10/02/16 03:20 - Labs Result Diagrams: 10/01/16 23:58 10/01/16 23:58 Attending/Attestation - Attestation I have personally seen and examined this patient.: Yes I have fully participated in the care of the patient.: Yes I have reviewed all pertinent clinical information: Yes Notes (Text): 10/02/16 17:05 attending note; Patient seen and examined with resident. Patient is a 36-year-old female with PMH of nephrolithiasis s/p stent placement and hearing loss admitted for Right sided flank pain x [address] abdomen showed right ureteral stent with hydroneposis. Patient was evaluated by Dr. Medrano. continue IV fluids/pain medications. Monitor closely. Follow-up with PMD Dr. Franks.
--- NOTE | 2016-10-02 13:56 | CP.PCM.PCO ---
Physician Communication Note - Physician Communication Note Physician Communication Note: Pt seen by uro- declining stent- will d/c home for outpt lithotripsy
--- NOTE | 2016-10-02 13:59 | CP.PCM.DIS ---
<Mei Cook - Last Filed: 10/02/16 13:56> Provider - Provider Date of Admission: 10/02/16 02:11 Attending physician: Toño Vital MD Primary care physician: Ilia Franks JD, MD Consults: Urology-Taya Time Spent in preparation of Discharge (in minutes): 35 Hospital Course - Lab Results Lab Results: Most Recent Lab Values WBC 9.9 10^3/ul (4.5-11.0) 10/01/16 23:58 RBC 5.12 10^6/uL (3.5-6.1) 10/01/16 23:58 Hgb 13.9 gm/dL (12.0-16.0) 10/01/16 23:58 Hct 42.5 % (36.0-48.0) 10/01/16 23:58 MCV 83.0 fL (80.0-105.0) 10/01/16 23:58 MCH 27.1 pg (25.0-35.0) 10/01/16 23:58 MCHC 32.7 g/dl (31.0-37.0) 10/01/16 23:58 RDW 14.4 % (11.5-14.5) 10/01/16 23:58 Plt Count 241 10^3/uL (120.0-450.0) 10/01/16 23:58 MPV 10.9 fl (7.0-11.0) 10/01/16 23:58 Gran % 67.9 % (50.0-68.0) 10/01/16 23:58 Lymph % (Auto) 22.5 % (22.0-35.0) 10/01/16 23:58 [place] % (Auto) 8.3 % (1.0-6.0) H 10/01/16 23:58 Eos % (Auto) 1.1 % (1.5-5.0) L 10/01/16 23:58 Baso % (Auto) 0.2 % (0.0-3.0) 10/01/16 23:58 Gran # 6.75 (1.4-6.5) H 10/01/16 23:58 Lymph # 2.2 (1.2-3.4) 10/01/16 23:58 [place] # 0.8 (0.1-0.6) H 10/01/16 23:58 Eos # 0.1 (0.0-0.7) 10/01/16 23:58 Baso # 0.02 K/mm3 (0.0-2.0) 10/01/16 23:58 Sodium 140 mmol/L (132-148) 10/01/16 23:58 Potassium 4.0 mmol/L (3.6-5.0) 10/01/16 23:58 Chloride 102 mmol/L (98-107) 10/01/16 23:58 Carbon Dioxide 29 mmol/L (21-33) 10/01/16 23:58 Anion Gap 13 (10-20) 10/01/16 23:58 BUN 11 mg/dL (7-21) 10/01/16 23:58 Creatinine 0.6 mg/dL (0.5-1.4) 10/01/16 23:58 Est GFR ( Amer) > 60 10/01/16 23:58 Est GFR (Non-Af Amer) > 60 10/01/16 23:58 Random Glucose 132 mg/dL (70-110) H 10/01/16 23:58 Calcium 9.4 mg/dL (8.4-10.5) 10/01/16 23:58 Total Bilirubin 0.5 mg/dL (0.2-1.3) 10/01/16 23:58 AST 22 U/L (15-39) 10/01/16 23:58 ALT 44 U/L (7-56) 10/01/16 23:58 Alkaline Phosphatase 103 U/L (38-133) 10/01/16 23:58 Total Protein 7.4 g/dL (5.8-8.3) 10/01/16 23:58 Albumin 4.0 g/dL (3.0-4.8) 10/01/16 23:58 Globulin 3.3 gm/dL 10/01/16 23:58 Albumin/Globulin Ratio 1.2 (1.1-1.8) 10/01/16 23:58 Urine Color Yellow (YELLOW) 10/01/16 23:58 Urine Appearance Sl cloudy (CLEAR) 10/01/16 23:58 Urine pH 7.5 (4.7-8.0) 10/01/16 23:58 Ur Specific Thompson 1.015 (1.005-1.035) 10/01/16 23:58 Urine Protein Negative mg/dL (<30 mg/dL) 10/01/16 23:58 Urine Glucose (UA) Negative mg/dL (NEGATIVE) 10/01/16 23:58 Urine Ketones Negative mg/dL (NEGATIVE) 10/01/16 23:58 Urine Blood Trace-intact (NEGATIVE) H 10/01/16 23:58 Urine Nitrate Negative (NEGATIVE) 10/01/16 23:58 Urine Bilirubin Negative (NEGATIVE) 10/01/16 23:58 Urine Urobilinogen 0.2 E.U./dL (<1 E.U./dL) 10/01/16 23:58 Ur Leukocyte Esterase Negative Christine/uL (NEGATIVE) 10/01/16 23:58 Urine RBC 0 - 2 /hpf (0-2) 10/01/16 23:58 Urine WBC 0 - 2 /hpf (0-6) 10/01/16 23:58 Ur Epithelial Cells 0 - 2 /hpf (0-5) 10/01/16 23:58 Amorphous Sediment Small 10/01/16 23:58 Urine HCG, Qual Negative (NEGATIVE) 10/01/16 23:58 - Hospital Course Hospital Course: 36 yo F w/PMH sig for nephrolithiasis and hearing loss admitted for Right flank pain 2/2 nephrolithiasis on imaging w/hydronephrosis. Pt given supportive measures, urology saw/evaluated pt w/recs for stent placement- pt declining intervention. Urology then recommended lithotripsy as an outpatient, which patient agrees to do. Patient stabilized, pain much improved, will discharge with pain regimen and plan for outpatient lithotripsy in next 2 days. Diagnoses: nephrolithiasis of R kidney w/hydronephrosis - Date & Time of H&P Date of H&P: 10/02/16 Time of H&P: 13:16 Discharge Exam - Head Exam Head Exam: ATRAUMATIC, NORMAL INSPECTION, NORMOCEPHALIC - Eye Exam Eye Exam: EOMI, Normal appearance - ENT Exam ENT Exam: Mucous Membranes Moist - Neck Exam Neck exam: Full Rom, Normal Inspection - Respiratory Exam Respiratory Exam: Clear to PA & Lateral, NORMAL BREATHING PATTERN, UNREMARKABLE - Cardiovascular Exam Cardiovascular Exam: REGULAR RHYTHM, +S1, +S2 - GI/Abdominal Exam GI & Abdominal Exam: Normal Bowel Sounds, Soft, Unremarkable. absent: Tenderness - Extremities Exam Extremities exam: normal inspection - Back Exam Back exam: NORMAL INSPECTION. absent: CVA tenderness (L), CVA tenderness (R) - Neurological Exam Neurological exam: Alert, CN II-XII Intact, Oriented x3 - Psychiatric Exam Psychiatric exam: Normal Affect, Normal Mood - Skin Skin Exam: Dry, Intact, Normal Color, Warm Discharge Plan - Discharge Medications Prescriptions: oxyCODONE/Acetaminophen [Percocet 5/325 mg Tab] 1 ea PO Q6H PRN #15 tab PRN Reason: Pain, Severe (8-10) - Follow Up Plan Condition: GOOD Disposition: HOME/ ROUTINE Instructions: Kidney Stones (DC), Lithotripsy (DC), Narcotic Pain Management ( DC), Regular Diet (DC) Additional Instructions: Patient to attend another hospital for lithotripsy of kidney stone- please contact Dr. Bain's office for exact date/time. You are being discharged on a pain medication- do no operate heavy machinery after you take the medication, this medication can cause constipation, it is ok to take an over the counter laxative if this happens. Continue to drink lots of water. If you have a recurrence of symptoms, please return to hospital. Referrals: Rishabh Bain MD [Staff Provider] - <Toño Vital - Last Filed: 10/02/16 17:08> Provider - Provider Date of Admission: 10/02/16 02:11 Attending physician: Toño Vital MD Primary care physician: Ilia Franks JD, MD Hospital Course - Lab Results Lab Results: Most Recent Lab Values WBC 9.9 10^3/ul (4.5-11.0) 10/01/16 23:58 RBC 5.12 10^6/uL (3.5-6.1) 10/01/16 23:58 Hgb 13.9 gm/dL (12.0-16.0) 10/01/16 23:58 Hct 42.5 % (36.0-48.0) 10/01/16 23:58 MCV 83.0 fL (80.0-105.0) 10/01/16 23:58 MCH 27.1 pg (25.0-35.0) 10/01/16 23:58 MCHC 32.7 g/dl (31.0-37.0) 10/01/16 23:58 RDW 14.4 % (11.5-14.5) 10/01/16 23:58 Plt Count 241 10^3/uL (120.0-450.0) 10/01/16 23:58 MPV 10.9 fl (7.0-11.0) 10/01/16 23:58 Gran % 67.9 % (50.0-68.0) 10/01/16 23:58 Lymph % (Auto) 22.5 % (22.0-35.0) 10/01/16 23:58 [place] % (Auto) 8.3 % (1.0-6.0) H 10/01/16 23:58 Eos % (Auto) 1.1 % (1.5-5.0) L 10/01/16 23:58 Baso % (Auto) 0.2 % (0.0-3.0) 10/01/16 23:58 Gran # 6.75 (1.4-6.5) H 10/01/16 23:58 Lymph # 2.2 (1.2-3.4) 10/01/16 23:58 [place] # 0.8 (0.1-0.6) H 10/01/16 23:58 Eos # 0.1 (0.0-0.7) 10/01/16 23:58 Baso # 0.02 K/mm3 (0.0-2.0) 10/01/16 23:58 Sodium 140 mmol/L (132-148) 10/01/16 23:58 Potassium 4.0 mmol/L (3.6-5.0) 10/01/16 23:58 Chloride 102 mmol/L (98-107) 10/01/16 23:58 Carbon Dioxide 29 mmol/L (21-33) 10/01/16 23:58 Anion Gap 13 (10-20) 10/01/16 23:58 BUN 11 mg/dL (7-21) 10/01/16 23:58 Creatinine 0.6 mg/dL (0.5-1.4) 10/01/16 23:58 Est GFR ( Amer) > 60 10/01/16 23:58 Est GFR (Non-Af Amer) > 60 10/01/16 23:58 Random Glucose 132 mg/dL (70-110) H 10/01/16 23:58 Calcium 9.4 mg/dL (8.4-10.5) 10/01/16 23:58 Total Bilirubin 0.5 mg/dL (0.2-1.3) 10/01/16 23:58 AST 22 U/L (15-39) 10/01/16 23:58 ALT 44 U/L (7-56) 10/01/16 23:58 Alkaline Phosphatase 103 U/L (38-133) 10/01/16 23:58 Total Protein 7.4 g/dL (5.8-8.3) 10/01/16 23:58 Albumin 4.0 g/dL (3.0-4.8) 10/01/16 23:58 Globulin 3.3 gm/dL 10/01/16 23:58 Albumin/Globulin Ratio 1.2 (1.1-1.8) 10/01/16 23:58 Urine Color Yellow (YELLOW) 10/01/16 23:58 Urine Appearance Sl cloudy (CLEAR) 10/01/16 23:58 Urine pH 7.5 (4.7-8.0) 10/01/16 23:58 Ur Specific [place] 1.015 (1.005-1.035) 10/01/16 23:58 Urine Protein Negative mg/dL (<30 mg/dL) 10/01/16 23:58 Urine Glucose (UA) Negative mg/dL (NEGATIVE) 10/01/16 23:58 Urine Ketones Negative mg/dL (NEGATIVE) 10/01/16 23:58 Urine Blood Trace-intact (NEGATIVE) H 10/01/16 23:58 Urine Nitrate Negative (NEGATIVE) 10/01/16 23:58 Urine Bilirubin Negative (NEGATIVE) 10/01/16 23:58 Urine Urobilinogen 0.2 E.U./dL (<1 E.U./dL) 10/01/16 23:58 Ur Leukocyte Esterase Negative Christine/uL (NEGATIVE) 10/01/16 23:58 Urine RBC 0 - 2 /hpf (0-2) 10/01/16 23:58 Urine WBC 0 - 2 /hpf (0-6) 10/01/16 23:58 Ur Epithelial Cells 0 - 2 /hpf (0-5) 10/01/16 23:58 Amorphous Sediment Small 10/01/16 23:58 Urine HCG, Qual Negative (NEGATIVE) 10/01/16 23:58 Attending/Attestation - Attestation I have personally seen and examined this patient.: Yes I have fully participated in the care of the patient.: Yes I have reviewed all pertinent clinical information, including history, physical exam and plan: Yes Notes (Text): 10/02/16 17:07 attending note; Patient seen and examined with resident. Patient is a 36-year-old female with PMH of nephrolithiasis s/p stent placement and hearing loss admitted for Right sided flank pain x [address] abdomen showed right ureteral stent with hydronephrosis. Patient was evaluated by Dr. Bain. treated with IV fluids/pain medications. patient will be discharged home today. [facility]. Follow-up with PMD Dr. Franks. diagnosis; Right ureteral stone Right hydronephrosis
--- NOTE | 2016-10-02 15:02 | HP ---
UROLOGY ADMISSION REASON FOR ADMISSION: Severe renal colic. HISTORY OF PRESENT ILLNESS: A very pleasant lady I know well, 36 years old, who I treated previously with kidney stones. She called me last night that she is having colic. She is actually admitted to the hospital now for colic, although she is at this moment feeling better. The findings on the CT scan are noted, see below plan. PAST MEDICAL AND SURGICAL HISTORY: As listed above. No history of an NC or CVA. SOCIAL HISTORY: Essentially unremarkable. She works as a here in town. MEDICATIONS: The other medications, see chart. ALLERGIES: NONE. PHYSICAL EXAMINATION: GENERAL: Well-nourished female, she is currently resting comfortably. She actually feels hungry and wants to eat breakfast. It is currently about 8 a.m. LABORATORY DATA: Labs noted. CT scan noted. I discussed the options with the patient at this point and the plans and options. DIAGNOSES: Renal colic and kidney stones that are up in the kidney. PLAN: The plan is as follows, we are going to bring [facility] to [facility]. She said she would rather not have a stent. I discussed Cysto stenting today and followup as well. What we are going to do is bring her to the hospital. She happens to have a distal right ureteral stone. As described above and there is also incidentally stones in the kidney. So the plans are now as follows, she is stable for discharge, she was given clear instructions to stay in close contact with me. I did discuss Cysto stenting. She said she would rather stay away from the hospital so as to avoid from the stent, so we are going to provide analgesic, straining urine, etc. and then further plan will follow. Mihir Bain MD
== END 2016-10-02 14:57 | disposition home or self-care (01) ==
LOC: ED 22:35 → INTOOBSV 10-02 02:11 → OBSVTOIN 10-02 02:11 → ERH 10-02 02:11 → 5RNO 10-02 04:21
PROVIDERS: ADMIT Internal Medicine; ATTEND Internal Medicine
DX: N13.2 Hydronephrosis with renal and ureteral calculous obstruction (principal); H91.90 Unspecified hearing loss, unspecified ear
CPT/HCPCS: 74176; 80053; 81001; 84703; 85025; 87040; 87086; 96374; 99284; G0378; J0696; J1885; J7040

== ENCOUNTER 2016-12-24 15:40 | Emergency (ER) | payer OTHER ==
--- NOTE | 2016-12-24 16:16 | ED PDOC ---
Arrival/HPI - General Chief Complaint: Breast Problem Time Seen by Provider: 12/24/16 15:53 Historian: Patient - History of Present Illness Narrative History of Present Illness (Text): 12/24/16 16:38 36yo female with no PMHx who present with complaint of right breast pain x few days. She describe pain as soreness. She notes history of tubal ligation her LMP was 11/28/16. States she came to ED because of her familial history of breast cancer. She denies breast lump, weight loss, nausea, vomiting, dizziness , any other complaint. Past Medical History - Provider Review Nursing Documentation Reviewed: Yes - Infectious Disease Hx of Infectious Diseases: None - Tetanus Immunization Tetanus Immunization: Unknown - Past Medical History Past Medical History: No Previous - Cardiac Hx Cardiac Disorders: No Hx Angina: No Hx Cardiac Arrhythmia: No Hx Circulatory Problems: No Hx Congestive Heart Failure: No Hx Heart Murmur: No Hx Heart Transplant: No Hx Hypertension: No Hx Internal Defibrillator: No Hx Mitral Valve Prolapse: No Hx Pacemaker: No Hx Peripheral Edema: No Hx Peripheral Vascular Disease: No - Pulmonary Hx Respiratory Disorders: No Hx Asthma: No Hx Bronchitis: No Hx Chronic Obstructive Pulmonary Disease (COPD): No Hx Emphysema: No Hx Pneumonia: No Hx Respiratory Aspiration: No Hx Respiratory Tract Infection: No Hx Sleep Apnea: No Hx Tuberculosis: No - Neurological Hx Neurological Disorder: No Hx Alzheimer's Disease: No HX Cerebrovascular Accident: No Hx Dementia: No Hx Dizziness: No Hx Meningitis: No Hx Migraine: No Hx Parkinson's Disease: No Hx Seizures: No Hx Transient Ischemic Attacks (TIA): No - HEENT Hx HEENT Disorder: Yes Hx Blind: No Hx Cataracts: No Hx Deafness: No Hx Difficulty Chewing: No Hx Epistaxis: No Hx Glaucoma: No Hx Macular Degeneration: No Other/Comment: HEARING IMPAIRED - Renal Hx Renal Disorder: No Hx Dialysis: No Hx Kidney Stones: Yes Hx Neurogenic Bladder: No Hx Pyelonephritis: No Hx Renal Cancer: No Hx Renal Failure: No Other/Comment: PT HAD STENT PUT IN AND REMOVED ONE WEEK AFTER BY DR Medrano. Kidney stones removed by laser. - Endocrine/Metabolic Hx Endocrine Disorders: Yes Hx Adrenal Cancer: No Hx Diabetes Insipidus: No (gestational on this ) - Hematological/Oncological Hx Blood Disorders: No - Integumentary Hx Dermatological Disorder: No - Musculoskeletal/Rheumatological Hx Musculoskeletal Disorders: Yes Hx Falls: No Other/Comment: HEEL SPURS - Gastrointestinal Hx Gastrointestinal Disorders: No - Genitourinary/Gynecological Hx Genitourinary Disorders: No - Psychiatric Hx Psychophysiologic Disorder: No Hx Depression: No Hx Emotional Abuse: No Hx Physical Abuse: No Hx Substance Use: No - Past Surgical History Past Surgical History: No Previous - Surgical History Other/Comment: right kidney stent - Anesthesia Hx Anesthesia: Yes Hx Anesthesia Reactions: No - Suicidal Assessment Feels Threatened In Home Enviroment: No Family/Social History - Physician Review Nursing Documentation Reviewed: Yes Family/Social History: Unknown Family HX Smoking Status: Never Smoked Hx Alcohol Use: No Hx Substance Use: No Hx Substance Use Treatment: No Allergies/Home Meds Allergies/Adverse Reactions: Allergies No Known Allergies Allergy (Verified 12/24/16 15:57) Home Medications: Home Meds Medication Instructions Recorded Confirmed No Known Home Med 12/24/16 12/24/16 Review of Systems - Physician Review All systems were reviewed & negative as marked: Yes - Review of Systems Constitutional: Normal Eyes: Normal ENT: Normal Respiratory: Normal Cardiovascular: Normal Gastrointestinal: Normal Genitourinary Female: Other (Breast pain) Musculoskeletal: Normal Skin: Normal Neurological: Normal Endocrine: Normal Hemo/Lymphatic: Normal Psychiatric: Normal Physical Exam Vital Signs Reviewed: Yes Vital Signs Temp Pulse Resp BP Pulse Ox 12/24/16 16:00 97.8 F 88 18 112/82 98 Temperature: Afebrile Blood Pressure: Normal Pulse: Regular Respiratory Rate: Normal Appearance: Positive for: Well-Appearing, Non-Toxic, Comfortable Pain Distress: None Mental Status: Positive for: Alert and Oriented X 3 - Systems Exam Head: Present: Atraumatic, Normocephalic Pupils: Present: PERRL Extroacular Muscles: Present: EOMI Conjunctiva: Present: Normal Mouth: Present: Moist Mucous Membranes Neck: Present: Normal Range of Motion Respiratory/Chest: Present: Clear to Auscultation, Good Air Exchange. No: Respiratory Distress, Accessory Muscle Use Cardiovascular: Present: Regular Rate and Rhythm, Normal S1, S2. No: Murmurs Abdomen: Present: Normal Bowel Sounds. No: Tenderness, Distention, Peritoneal Signs Breast/Axillary: Present: Symmetrical. No: Axillary Lymphad, Discoloration, Erythema, Masses, Nipple Discharge, Swelling, Tender to Palpation Back: Present: Normal Inspection Upper Extremity: Present: Normal Inspection. No: Cyanosis, Edema Lower Extremity: Present: Normal Inspection. No: Edema Neurological: Present: GCS=15, CN II-XII Intact, Speech Normal Skin: Present: Warm, Dry, Normal Color. No: Rashes Psychiatric: Present: Alert, Oriented x 3, Normal Insight, Normal Concentration Medical Decision Making ED Course and Treatment: 12/24/16 16:45 PT in ED for stated history. PE was benign in ED. [facility] and breast US for Friday at 1245pm. Plan was DW the pt and she was strongly advised to go to [facility] for imaging on Friday. Disposition/Present on Arrival - Present on Arrival Any Indicators Present on Arrival: No History of DVT/PE: No History of Uncontrolled Diabetes: No Urinary Catheter: No History of Decub. Ulcer: No History Surgical Site Infection Following: None - Disposition Have Diagnosis and Disposition been Completed?: Yes Diagnosis: Mastodynia Disposition: HOME/ ROUTINE Disposition Time: 16:15 Patient Plan: Discharge Patient Problems: Current Active Problems Problem Status Onset Mastodynia Acute Condition: STABLE Discharge Instructions (ExitCare): Chest Pain (ED) Additional Instructions: Follow up with [facility] on Friday12/30/16 at 1245pm Return to ED for any new complaint [facility] - Follow up with primary Forms: [employer] (Pashto)
[2016-12-24 16:21] VITALS: BP 112/82; PULSE 88; RESP 18; TEMP 97.8; O2SAT 98; BMI 26.5
== END 2016-12-24 16:00 | disposition home or self-care (01) ==
LOC: ED 15:40
DX: N64.4 Mastodynia (principal); Z85.3 Personal history of malignant neoplasm of breast; Z98.51 Tubal ligation status

== ENCOUNTER 2017-03-14 11:20 | Emergency (ER) | payer OTHER ==
[2017-03-14 11:21] VITALS: BMI 32.9
[2017-03-14 11:30] VITALS: TEMP 98.3
[2017-03-14] MEDS ORDERED: Sodium Chloride 0.9% 1,000 ML IV STA (11:47)
--- NOTE | 2017-03-14 11:47 | ED PDOC ---
Arrival/HPI - General Chief Complaint: Abdominal Pain Time Seen by Provider: 03/14/17 11:41 Historian: Patient - History of Present Illness Narrative History of Present Illness (Text): 03/14/17 11:35 Lucy Shepherd is a 36 year old female whose past medical history includes renal stones, who presents to the emergency department complaining of right flank pain since last night. Patient reports she also has urinary frequency, dark urine, and cramping. She states taking Ibuprofen last night but there was temporary relief. She notes these symptoms being similar to her PMH of renal stones. Patient denies fall, trauma, chest pain, shortness of breath, headache, fever, chills, cough, nausea, vomiting, diarrhea, or other complaints. Time/Duration: 24 hours Symptom Onset: Sudden Symptom Course: Unchanged Activities at Onset: Light Context: Home Past Medical History - Provider Review Nursing Documentation Reviewed: Yes - Infectious Disease Hx of Infectious Diseases: None - Tetanus Immunization Tetanus Immunization: Unknown - Reproductive Menopause: No - Past Medical History Past Medical History: No Previous - Cardiac Hx Cardiac Disorders: No Hx Angina: No Hx Cardiac Arrhythmia: No Hx Circulatory Problems: No Hx Congestive Heart Failure: No Hx Heart Murmur: No Hx Heart Transplant: No Hx Hypertension: No Hx Internal Defibrillator: No Hx Mitral Valve Prolapse: No Hx Pacemaker: No Hx Peripheral Edema: No Hx Peripheral Vascular Disease: No - Pulmonary Hx Respiratory Disorders: No Hx Asthma: No Hx Bronchitis: No Hx Chronic Obstructive Pulmonary Disease (COPD): No Hx Emphysema: No Hx Pneumonia: No Hx Respiratory Aspiration: No Hx Respiratory Tract Infection: No Hx Sleep Apnea: No Hx Tuberculosis: No - Neurological Hx Neurological Disorder: No Hx Alzheimer's Disease: No HX Cerebrovascular Accident: No Hx Dementia: No Hx Dizziness: No Hx Meningitis: No Hx Migraine: No Hx Parkinson's Disease: No Hx Seizures: No Hx Transient Ischemic Attacks (TIA): No - HEENT Hx HEENT Disorder: Yes Hx Blind: No Hx Cataracts: No Hx Deafness: No Hx Difficulty Chewing: No Hx Epistaxis: No Hx Glaucoma: No Hx Macular Degeneration: No Other/Comment: HEARING IMPAIRED - Renal Hx Kidney Stones: Yes Other/Comment: PT HAD STENT PUT IN AND REMOVED ONE WEEK AFTER BY DR Medrano. Kidney stones removed by laser. - Endocrine/Metabolic Hx Endocrine Disorders: Yes Hx Adrenal Cancer: No Hx Diabetes Insipidus: No (gestational on this ) - Hematological/Oncological Hx Blood Disorders: No - Integumentary Hx Dermatological Disorder: No - Musculoskeletal/Rheumatological Hx Musculoskeletal Disorders: Yes Hx Falls: No Other/Comment: HEEL SPURS - Gastrointestinal Hx Gastrointestinal Disorders: No - Genitourinary/Gynecological Hx Genitourinary Disorders: No - Psychiatric Hx Psychophysiologic Disorder: No Hx Depression: No Hx Emotional Abuse: No Hx Physical Abuse: No Hx Substance Use: No - Past Surgical History Past Surgical History: No Previous - Surgical History Other/Comment: right kidney stent - Anesthesia Hx Anesthesia Reactions: No - Suicidal Assessment Feels Threatened In Home Enviroment: No Family/Social History - Physician Review Nursing Documentation Reviewed: Yes Family/Social History: Unknown Family HX Smoking Status: Never Smoked Hx Alcohol Use: No Hx Substance Use: No Hx Substance Use Treatment: No Allergies/Home Meds Allergies/Adverse Reactions: Allergies No Known Allergies Allergy (Verified 03/14/17 11:36) Home Medications: Home Meds Medication Instructions Recorded Confirmed No Known Home Med 12/24/16 03/14/17 Review of Systems - Physician Review All systems were reviewed & negative as marked: Yes - Review of Systems Constitutional: absent: Fevers Respiratory: absent: SOB, Cough Cardiovascular: absent: Chest Pain Gastrointestinal: absent: Abdominal Pain Genitourinary Female: Frequency, Urine Output Changes Musculoskeletal: Back Pain, Other (right flank pain) Neurological: absent: Headache, Dizziness Endocrine: absent: Diaphoresis Physical Exam Vital Signs Reviewed: Yes Vital Signs Temp Pulse Resp BP Pulse Ox 03/14/17 13:23 81 18 136/69 98 03/14/17 11:29 98.3 F 88 16 139/72 98 Temperature: Afebrile Blood Pressure: Normal Pulse: Regular Respiratory Rate: Normal Appearance: Positive for: Well-Appearing, Non-Toxic, Comfortable Pain Distress: None Mental Status: Positive for: Alert and Oriented X 3 - Systems Exam Head: Present: Atraumatic, Normocephalic Pupils: Present: PERRL Extroacular Muscles: Present: EOMI Conjunctiva: Present: Normal Mouth: Present: Moist Mucous Membranes Neck: Present: Normal Range of Motion Respiratory/Chest: Present: Clear to Auscultation, Good Air Exchange. No: Respiratory Distress, Accessory Muscle Use, Wheezes, Decreased Breath Sounds, Rales, Retracting, Rhonchi, Tachypneic Cardiovascular: Present: Regular Rate and Rhythm, Normal S1, S2. No: Murmurs Abdomen: Present: Normal Bowel Sounds. No: Tenderness, Distention, Peritoneal Signs, Rebound, Guarding Upper Extremity: Present: Normal Inspection, Normal ROM, NORMAL PULSES, Neurovascularly Intact, Capillary Refill < 2s. No: Cyanosis, Edema, Tenderness , Swelling, Erythema Lower Extremity: Present: Normal Inspection, NORMAL PULSES, Normal ROM, Neurovascularly Intact, Capillary Refill < 2 s. No: Edema, Cyanosis, Tenderness , Swelling, Erythema, Deformity Neurological: Present: GCS=15, CN II-XII Intact, Speech Normal Skin: Present: Warm, Dry, Normal Color. No: Rashes Psychiatric: Present: Alert, Oriented x 3, Normal Insight, Normal Concentration Medical Decision Making ED Course and Treatment: 03/14/17 Impression: 36 year old female complaining of right flank pain. Patient reports symptoms are similar to PMH of renal stones. Plan: -- Labs -- Urinalysis -- Toradol, Zofran, and Sodium Chloride -- Reassess and disposition Progress Notes: 03/14/17 14:[address] Medrano who is aware of plan and treatment. He agrees to come to see patient on bedside. - Lab Interpretations Lab Results: 03/14/17 12:20 03/14/17 13:05 Lab Results 03/14/17 13:05: Sodium 140, Potassium 4.0, Chloride 102, Carbon Dioxide 26, Anion Gap 16, BUN 11, Creatinine 0.5 L, Est GFR ( Amer) > 60, Est GFR ( Non-Af Amer) > 60, Random Glucose 176 H, Calcium 9.1, Total Bilirubin 0.4, AST 26, ALT 64 H, Alkaline Phosphatase 97, Total Protein 7.1, Albumin 4.1, Globulin 3.0, Albumin/Globulin Ratio 1.4 03/14/17 13:05: PT 11.4, INR 0.99 03/14/17 12:20: Urine Color Yellow, Urine Appearance Sl cloudy, Urine pH 7.0, Ur Specific [place] 1.015, Urine Protein 30 H, Urine Glucose (UA) Negative, Urine Ketones Negative, Urine Blood Large H, Urine Nitrate Negative, Urine Bilirubin Negative, Urine Urobilinogen 0.2, Ur Leukocyte Esterase Moderate H, Urine RBC 15 - 20, Urine WBC 2 - 5, Ur Epithelial Cells 0 - 2, Urine Bacteria Large 03/14/17 12:20: WBC 11.2 H, RBC 4.90, Hgb 13.4, Hct 41.5, MCV 84.7, MCH 27.3, MCHC 32.3, RDW 14.5, Plt Count 273, MPV 11.2 H, Gran % 76.2 H, Lymph % (Auto) 17.3 L, [place] % (Auto) 5.2, Eos % (Auto) 1.1 L, Baso % (Auto) 0.2, Gran # 8.56 H , Lymph # 1.9, [place] # 0.6, Eos # 0.1, Baso # 0.02 I have reviewed the lab results: Yes - RAD Interpretation Radiology Orders: 03/14/17 11:48 ABD & PELVIS W/O PO OR IV CONT [CT] Stat - Medication Orders Current Medication Orders: Discontinued Medications Sodium Chloride (Sodium Chloride 0.9%) 1,000 mls @ 999 mls/hr IV .Q1H1M STA Stop: 03/14/17 12:47 Last Admin: 03/14/17 13:07 Dose: 999 mls/hr eMAR Start Stop Document 03/14/17 13:07 GMD (Rec: 03/14/17 13:07 [id number]) Intravenous Solution Start Date 03/14/17 Start Time 13:07 End Date 03/14/17 End time 14:07 Total Infusion Time 60 Ketorolac Tromethamine (Toradol) 30 mg IVP STAT STA Stop: 03/14/17 11:48 Last Admin: 03/14/17 13:07 Dose: 30 mg MAR Pain Assessment Document 03/14/17 13:07 GMD (Rec: 03/14/17 13:07 [id number]) Pain Reassessment Is this a pain reassessment? No Sleep Is patient sleeping during reassessment? No Presence of Pain Presence of Pain Yes IVP Administration Document 03/14/17 13:07 GMD (Rec: 03/14/17 13:07 [facility] [place] [facility] [id number]) Charges for Administration # of IVP Administrations 1 Ondansetron HCl (Zofran Inj) 4 mg IVP STAT STA Stop: 03/14/17 11:48 Last Admin: 03/14/17 13:07 Dose: 4 mg IVP Administration Document 03/14/17 13:07 GMD (Rec: 03/14/17 13:07 [id number]) Charges for Administration # of IVP Administrations 1 - PA / SENIOR SAFETY MANAGEMENT CONSULTANT / Resident Statement MD/DO has reviewed & agrees with the documentation as recorded. - Scribe Statement The provider has reviewed the documentation as recorded by the Scribe Margarita Gaines Provider Scribe Attestation: All medical record entries made by the Scribe were at my direction and personally dictated by me. I have reviewed the chart and agree that the record accurately reflects my personal performance of the history, physical exam, medical decision making, and the department course for this patient. I have also personally directed, reviewed, and agree with the discharge instructions and disposition. Disposition/Present on Arrival - Present on Arrival Any Indicators Present on Arrival: No History of DVT/PE: No History of Uncontrolled Diabetes: No Urinary Catheter: No History of Decub. Ulcer: No History Surgical Site Infection Following: None - Disposition Have Diagnosis and Disposition been Completed?: Yes Diagnosis: Kidney stone, Hydronephrosis Disposition: HOME/ ROUTINE Disposition Time: 14:54 Patient Plan: Discharge Patient Problems: Current Active Problems Problem Status Onset Hydronephrosis Acute Kidney stone Acute Condition: GOOD Discharge Instructions (ExitCare): Kidney Stones (ED) Additional Instructions: Lucy - So sorry that you have to go through this again. Follow Dr. James Guido's instructions and were are here for you in the meanwhile should you have any problems. Hope this is over for you soon. Best- Dr. Joe Shay Referrals: Ilia Franks JD, MD [Primary Care Provider] - Follow up with primary Forms: [employer] (Nauruan)
[2017-03-14 12:37] LABS: BASO # 0.02 K/mm3 (0.0-2.0); BASO % 0.2 % (0.0-3.0); EOS # 0.1 (0.0-0.7); EOS % 1.1 % (1.5-5.0); GRAN # 8.56 (1.4-6.5); GRAN % 76.2 % (50.0-68.0); HEMOGLOBIN 13.4 g/dL (12.0-16.0); LYMPH # 1.9 (1.2-3.4); LYMPH % 17.3 % (22.0-35.0); MEAN CELL VOLUME 84.7 fl (80.0-105.0); MEAN CORPUSCULAR HEMOGLOBIN 27.3 pg (25.0-35.0); MEAN CORPUSCULAR HGB CONC 32.3 g/dl (31.0-37.0); MEAN PLATELET VOLUME 11.2 fl (7.0-11.0); MONO # 0.6 (0.1-0.6); MONO % 5.2 % (1.0-6.0); RBC 4.9 10^6/uL (3.5-6.1); RED CELL DISTRIBUTION WIDTH 14.5 % (11.5-14.5); WHITE BLOOD COUNT 11.2 10^3/ul (4.5-11.0)
[2017-03-14 12:39] LABS: URINE APPEARANCE SL CLOUDY (CLEAR); URINE BILIRUBIN NEGATIVE (NEGATIVE); URINE BLOOD LARGE (NEGATIVE); URINE COLOR YELLOW (YELLOW); URINE GLUCOSE (UA) NEGATIVE (NEGATIVE); URINE LEUKOCYTE ESTERASE MODERATE Leu/uL (NEGATIVE); URINE NITRATE NEGATIVE (NEGATIVE); URINE PROTEIN 30 mg/dL (<30 mg/dL); URINE UROBILINOGEN 0.2 E.U./dL (<1 E.U./dL)
[2017-03-14 12:47] LABS: URINE RBC 15 - 20 /hpf (0-2)
[2017-03-14 12:48] LABS: URINE BACTERIA LARGE (NEG); URINE EPITHELIAL CELLS 0 - 2 /hpf (0-5)
[2017-03-14 13:23] VITALS: RESP 18
[2017-03-14 13:23] LABS: ALB/GLOB RATIO 1.4 (1.1-1.8); ALBUMIN 4.1 g/dL (3.0-4.8); ALT/SGPT 64 U/L (7-56); AST/SGOT 26 U/L (14-36); BLOOD UREA NITROGEN 11 mg/dL (7-21); CALCIUM 9.1 mg/dL (8.4-10.5); GFR AFRICAN-AMERICAN > 60; GFR NON-AFRICAN AMERICAN > 60
[2017-03-14 13:26] LABS: INR 0.99 (0.93-1.08); PROTHROMBIN TIME 11.4 SECONDS (9.4-12.5)
--- NOTE | 2017-03-14 14:02 | CT ---
PROCEDURE: CT Abdomen without intravenous contrast HISTORY: right flank pain ? Stone ? COMPARISON: CT 10/02/2016 TECHNIQUE: Axial images of the abdomen from lung bases to iliac crest without intravenous contrast enhancement. Coronal and sagittal reformats generated. Oral contrast was administered. Radiation dose: Total exam DLP = 796 mGy-cm. This CT exam was performed using one or more of the following dose reduction techniques: Automated exposure control, adjustment of the mA and/or kV according to patient size, and/or use of iterative reconstruction technique. FINDINGS: LOWER THORAX: Unremarkable. LIVER: Unremarkable. No gross lesion or ductal dilatation. GALLBLADDER AND BILE DUCTS: Unremarkable. PANCREAS: Unremarkable. No gross lesion or ductal dilatation. SPLEEN: Unremarkable. ADRENALS: Unremarkable. No mass. KIDNEYS AND URETERS: There is a 7 mm diameter by 9 mm length stone in the right proximal ureter. There is mild hydronephrosis. Scattered small stones are seen in both kidneys VASCULATURE: Unremarkable. No aortic aneurysm. BOWEL: Unremarkable. No obstruction. No gross mural thickening. APPENDIX: Normal appendix. PERITONEUM: Unremarkable. No free fluid. No free air. LYMPH NODES: Unremarkable. No enlarged lymph nodes. BONES: No acute fracture. OTHER FINDINGS: None. IMPRESSION: There is a 7 mm diameter by 9 mm length stone in the right proximal ureter. There is mild hydronephrosis. Scattered small stones are seen in both kidneys
[2017-03-14 15:06] VITALS: BP 124/76; PULSE 76; O2SAT 99
--- NOTE | 2017-03-18 08:58 | CON ---
DATE: 03/14/2017 UROLOGY CONSULTATION REASON FOR CONSULTATION: ER consultation for urolithiasis. HISTORY OF PRESENT ILLNESS: Very pleasant lady with severe renal colic. But now she feels that she is better. She is here in the ER. On the CT scan, she has been found to have a new stone. She has a history of stones that are treated previously multiple times. This is actually the third stone. See the plans listed below. PAST MEDICAL AND SURGICAL HISTORY: All listed on the chart. SOCIAL HISTORY: She is a she works in [employer]. REVIEW OF SYSTEMS: As above, noncontributory. PHYSICAL EXAMINATION GENERAL: A well-nourished female, she is currently actually resting comfortably, in no distress. VITAL SIGNS: Normal. Physical exam is essentially unremarkable. There is no real CVA tenderness. LABORATORY DATA: See chart, CT scan. DIAGNOSES: Urolithiasis, hematuria. PLAN: The patient is afebrile some voiding dysfunction, renal colic and a stone. The plan is that we are going to try outpatient management. The patient is encouraged to call me with any questions or problems over the weekend, I am going to plan for shockwave lithotripsy on Friday if we can. Further plans to follow. Mihir Bain MD
== END 2017-03-14 15:07 | disposition home or self-care (01) ==
LOC: ED 11:20
DX: N13.30 Unspecified hydronephrosis (principal); N20.0 Calculus of kidney
CPT/HCPCS: 74176; 80053; 81001; 85025; 85610; 87086; 87181; 96361; 96374; 96375; 99285; J1885; J2405; J7040

== ENCOUNTER 2017-03-16 16:25 | Inpatient (IN) | payer OTHER ==
[~2017-03-16 16:25] MED LIST: Ciprofloxacin 400mg/200ml D5W 400 MG/200 ML BAG IVPB SCH
[2017-03-16 16:47] VITALS: BMI 32.0
[2017-03-16] MEDS ORDERED: Sodium Chloride 0.9% 1,000 ML IV STA (17:10)
[2017-03-16] MEDS ORDERED: Ciprofloxacin 400mg/200ml D5W 400 MG/200 ML BAG IVPB STA (17:10)
--- NOTE | 2017-03-16 17:15 | ED PDOC ---
Arrival/HPI - General Chief Complaint: Back Pain Time Seen by Provider: 03/16/17 16:57 Historian: Patient - History of Present Illness Narrative History of Present Illness (Text): 03/16/17 17:11 Lucy Shepherd is a 36 year old female whose past medical history includes renal stones, who presents to the emergency department complaining of right flank pain , chills, and fever since last night. Patient stated she was Dx. renal stone 2 days ago. Patient did not get ABX. Patient called Dr. Medrano who recommended to come to ED. Patient has a positive Urine Cx. which is sensitive to Cipro. Denies sob, cp, vaginal discharge, ornelas, dizziness, recent travel, or abnormal gait. Time/Duration: Other (see hpi) Context: Home Past Medical History - Provider Review Nursing Documentation Reviewed: Yes - Infectious Disease Hx of Infectious Diseases: None - Tetanus Immunization Tetanus Immunization: Unknown - Past Medical History Past Medical History: No Previous - Cardiac Hx Cardiac Disorders: No Hx Angina: No Hx Cardiac Arrhythmia: No Hx Circulatory Problems: No Hx Congestive Heart Failure: No Hx Heart Murmur: No Hx Heart Transplant: No Hx Hypertension: No Hx Internal Defibrillator: No Hx Mitral Valve Prolapse: No Hx Pacemaker: No Hx Peripheral Edema: No Hx Peripheral Vascular Disease: No - Pulmonary Hx Respiratory Disorders: No Hx Asthma: No Hx Bronchitis: No Hx Chronic Obstructive Pulmonary Disease (COPD): No Hx Emphysema: No Hx Pneumonia: No Hx Respiratory Aspiration: No Hx Respiratory Tract Infection: No Hx Sleep Apnea: No Hx Tuberculosis: No - Neurological Hx Neurological Disorder: No Hx Alzheimer's Disease: No HX Cerebrovascular Accident: No Hx Dementia: No Hx Dizziness: No Hx Meningitis: No Hx Migraine: No Hx Parkinson's Disease: No Hx Seizures: No Hx Transient Ischemic Attacks (TIA): No - HEENT Hx HEENT Disorder: Yes Hx Blind: No Hx Cataracts: No Hx Deafness: Yes (b/l) Hx Difficulty Chewing: No Hx Epistaxis: No Hx Glaucoma: No Hx Macular Degeneration: No Other/Comment: HEARING IMPAIRED - Renal Hx Kidney Stones: Yes Other/Comment: PT HAD STENT PUT IN AND REMOVED ONE WEEK AFTER BY DR Medrano. Kidney stones removed by laser. - Endocrine/Metabolic Hx Endocrine Disorders: Yes Hx Adrenal Cancer: No Hx Diabetes Insipidus: No (gestational on this ) - Hematological/Oncological Hx Blood Disorders: No - Integumentary Hx Dermatological Disorder: No - Musculoskeletal/Rheumatological Hx Musculoskeletal Disorders: Yes Hx Falls: No Other/Comment: HEEL SPURS - Gastrointestinal Hx Gastrointestinal Disorders: No - Genitourinary/Gynecological Hx Genitourinary Disorders: No - Psychiatric Hx Psychophysiologic Disorder: No Hx Depression: No Hx Emotional Abuse: No Hx Physical Abuse: No Hx Substance Use: No - Past Surgical History Past Surgical History: No Previous - Surgical History Other/Comment: right kidney stent - Anesthesia Hx Anesthesia Reactions: No - Suicidal Assessment Feels Threatened In Home Enviroment: No Family/Social History - Physician Review Nursing Documentation Reviewed: Yes Family/Social History: Other (noncontributory) Smoking Status: Never Smoked Hx Alcohol Use: Yes Frequency of alcohol use: Socially Hx Substance Use: No Hx Substance Use Treatment: No Allergies/Home Meds Allergies/Adverse Reactions: Allergies No Known Allergies Allergy (Verified 03/16/17 16:48) Home Medications: Home Meds Medication Instructions Recorded Confirmed No Known Home Med 12/24/16 03/16/17 Review of Systems - Review of Systems Constitutional: Fevers, Other (chills). absent: Fatigue, Weight Change Eyes: Normal ENT: Normal Respiratory: Normal. absent: SOB, Cough, Sputum Cardiovascular: Normal. absent: Chest Pain, Palpitations Gastrointestinal: absent: Abdominal Pain (improved from prior visit), Nausea, Vomiting Genitourinary Female: Dysuria, Frequency, Hematuria. absent: Vaginal Bleeding, Vaginal Discharge Musculoskeletal: Normal. absent: Back Pain, Neck Pain Skin: Normal. absent: Rash Neurological: Normal. absent: Headache, Dizziness, Focal Weakness, Gait Changes , Speech Changes, Facial Droop, Disequilibrium Endocrine: Normal Hemo/Lymphatic: Normal Psychiatric: Normal Physical Exam Vital Signs Temp Pulse Resp BP Pulse Ox 03/16/17 18:23 101.2 F H 03/16/17 18:21 101.2 F H 92 H 18 129/84 98 03/16/17 16:42 98.6 F 98 H 16 116/89 99 Temperature: Afebrile Blood Pressure: Normal Pulse: Regular Respiratory Rate: Normal Appearance: Positive for: Well-Appearing, Non-Toxic, Comfortable Pain Distress: None Mental Status: Positive for: Alert and Oriented X 3 - Systems Exam Head: Present: Atraumatic, Normocephalic Pupils: Present: PERRL Extroacular Muscles: Present: EOMI Conjunctiva: Present: Normal Mouth: Present: Moist Mucous Membranes Neck: Present: Normal Range of Motion Respiratory/Chest: Present: Clear to Auscultation, Good Air Exchange. No: Respiratory Distress, Accessory Muscle Use Cardiovascular: Present: Regular Rate and Rhythm, Normal S1, S2. No: Murmurs Abdomen: Present: Tenderness (mild suprapubic tenderness), Normal Bowel Sounds. No: Distention, Peritoneal Signs Back: Present: Normal Inspection. No: CVA Tenderness, Midline Tenderness, Paraspinal Tenderness Upper Extremity: Present: Normal Inspection. No: Cyanosis, Edema Lower Extremity: Present: Normal Inspection. No: Edema Neurological: Present: GCS=15, CN II-XII Intact, Speech Normal Skin: Present: Warm, Dry, Normal Color. No: Rashes Psychiatric: Present: Alert, Oriented x 3, Normal Insight, Normal Concentration Medical Decision Making ED Course and Treatment: 03/16/17 17:13 Patient refused pain medication at this time 03/16/17 17:[address] Medrano Urologist, who recommended admission. 03/16/17 18:[address] Vital Hospitalist regarding Dr. Medrano recommendation for admission. We reviewed labs, and previous ED visit. She agrees with plan for admission. Re-evaluation Time: 18:29 Reassessment Condition: Re-examined, Improving,but remains with symptoms - Lab Interpretations Lab Results: 03/16/17 17:00 03/16/17 17:00 Lab Results 03/16/17 17:00: Sodium 138, Chloride 102, Potassium 3.6, Carbon Dioxide 28, Anion Gap 12, BUN 9, Creatinine 0.5 L, Est GFR ( Amer) > 60, Est GFR (Non -Af Amer) > 60, Random Glucose 122 H, Calcium 9.3, Total Bilirubin 0.6, AST 25, ALT 51, Alkaline Phosphatase 105, Total Protein 7.6, Albumin 4.2, Globulin 3.5, Albumin/Globulin Ratio 1.2 03/16/17 17:00: pO2 41, VBG pH 7.33, VBG pCO2 54.0, VBG HCO3 28.5 H, VBG Total CO2 30.2 H, VBG O2 Sat (Calc) 80.2 H, VBG Base Excess 1.5, VBG Potassium 4.0, Sodium 136.0, Chloride 103.0, Glucose 117 H, Lactate 2.1, FiO2 21.0, Venous Blood Potassium 4.0 03/16/17 17:00: WBC 13.2 H, RBC 4.91, Hgb 13.4, Hct 41.6, MCV 84.7, MCH 27.3, MCHC 32.2, RDW 14.9 H, Plt Count 218, MPV 11.4 H, Gran % 76.6 H, Lymph % (Auto) 11.3 L, [place] % (Auto) 11.3 H, Eos % (Auto) 0.6 L, Baso % (Auto) 0.2, Gran # 10.09 H, Lymph # 1.5, [place] # 1.5 H, Eos # 0.1, Baso # 0.03 I have reviewed the lab results: Yes Interpretation: Abnormal lab values - Medication Orders Current Medication Orders: Ciprofloxacin (Cipro 400mg/200ml Dsw) 400 mg in 200 mls @ 133.3 mls/hr IVPB STAT STA PRN Reason: Protocol Stop: 03/16/17 18:40 Last Admin: 03/16/17 17:41 Dose: 133.3 mls/hr eMAR Start Stop Document 03/16/17 17:41 EWO (Rec: 03/16/17 17:41 [id number] Intravenous Solution Start Date 03/16/17 Start Time 17:41 End Date 03/16/17 End time 19:00 Total Infusion Time 79 Discontinued Medications Sodium Chloride (Sodium Chloride 0.9%) 1,000 mls @ 999 mls/hr IV .Q1H1M STA Stop: 03/16/17 18:10 Last Admin: 03/16/17 17:41 Dose: 999 mls/hr eMAR Start Stop Document 03/16/17 17:41 EWO (Rec: 03/16/17 17:41 [id number]) Intravenous Solution Start Date 03/16/17 Start Time 17:41 End Date 03/16/17 End time 18:41 Total Infusion Time 60 Disposition/Present on Arrival - Present on Arrival Any Indicators Present on Arrival: No History of DVT/PE: No History of Uncontrolled Diabetes: No Urinary Catheter: No History of Decub. Ulcer: No History Surgical Site Infection Following: None - Disposition Have Diagnosis and Disposition been Completed?: Yes Diagnosis: Pyelonephritis, Ureterolithiasis Disposition: HOSPITALIZED Disposition Time: 18:32 Condition: STABLE Referrals: Ilia Franks JD, MD [Primary Care Provider] - Follow up with primary Forms: [employer] (Romansh)
[2017-03-16 17:49] LABS: VENOUS BLOOD GAS BASE EXCESS 1.5 mmol/L (0.0-2.0); VENOUS BLOOD GAS PO2 41 mm/Hg (30-55); VENOUS BLOOD PH 7.33 (7.32-7.43)
[2017-03-16 17:54] LABS: GRAN % 76.6 % (50.0-68.0); HEMOGLOBIN 13.4 g/dL (12.0-16.0); LYMPH % 11.3 % (22.0-35.0); MEAN CELL VOLUME 84.7 fl (80.0-105.0); MEAN CORPUSCULAR HEMOGLOBIN 27.3 pg (25.0-35.0); MEAN CORPUSCULAR HGB CONC 32.2 g/dl (31.0-37.0); MEAN PLATELET VOLUME 11.4 fl (7.0-11.0); MONO % 11.3 % (1.0-6.0); RBC 4.91 10^6/uL (3.5-6.1); RED CELL DISTRIBUTION WIDTH 14.9 % (11.5-14.5); WHITE BLOOD COUNT 13.2 10^3/ul (4.5-11.0)
[2017-03-16 17:55] LABS: BASO # 0.03 K/mm3 (0.0-2.0); BASO % 0.2 % (0.0-3.0); EOS # 0.1 (0.0-0.7); EOS % 0.6 % (1.5-5.0); GRAN # 10.09 (1.4-6.5); LYMPH # 1.5 (1.2-3.4); MONO # 1.5 (0.1-0.6)
[2017-03-16 18:06] LABS: ALB/GLOB RATIO 1.2 (1.1-1.8); ALBUMIN 4.2 g/dL (3.0-4.8); ALT/SGPT 51 U/L (7-56); AST/SGOT 25 U/L (14-36); BLOOD UREA NITROGEN 9 mg/dL (7-21); CALCIUM 9.3 mg/dL (8.4-10.5); GFR AFRICAN-AMERICAN > 60; GFR NON-AFRICAN AMERICAN > 60
--- NOTE | 2017-03-16 19:09 | CP.PCM.HP ---
<Vincent Uribe - Last Filed: 03/16/17 20:21> History of Present Illness - History of Present Illness History of Present Illness: 36 year old female whose past medical history includes renal stones, who presents to the emergency department complaining of right flank pain, chills, and fever since last night. Patient rates the pain a 6out of 10. Patient states she was diagnosed with renal stone 2 days ago. Patient states that she did not receive any antibiotics. Patient states she called Dr. Medrano who recommended her come into the ED. Reviewing previous records, the patient had a positive Urine culture on 03/14 which was sensitive to Cipro. Patient denies any chest pain, shortness of breath, headaches, dizziness, sick contacts, or any other complaints at this time. PMH:previous history of kidney stones, with stents in right kidney PSH: C section Allergies: NKDA Social: denies tobacco and illicit drug use Family History: DM, HTN Medications: Percocet Present on Admission - Present on Admission Any Indicators Present on Admission: No Review of Systems - Constitutional Constitutional: Chills, Fever - EENT Eyes: absent: Blurred Vision, Change in Vision Ears: absent: Disequilibrium, Dizziness - Cardiovascular Cardiovascular: absent: Chest Pain, Lightheadedness - Respiratory Respiratory: absent: Cough - Gastrointestinal Gastrointestinal: Nausea. absent: Abdominal Pain, Vomiting - Musculoskeletal Musculoskeletal: absent: Tingling - Neurological Neurological: absent: Dizziness, Numbness, Tingling Past Patient History - Infectious Disease Hx of Infectious Diseases: None - Tetanus Immunizations Tetanus Immunization: Unknown - Past Social History Smoking Status: Never Smoked - CARDIAC Hx Cardiac Disorders: No Hx Angina: No Hx Cardia Arrhythmia: No Hx Circulatory Problems: No Hx Congestive Heart Failure: No Hx Heart Murmur: No Hx Heart Transplant: No Hx Hypertension: No Hx Internal Defibrillator: No Hx Mitral Valve Prolapse: No Hx Pacemaker: No Hx Peripheral Edema: No Hx Peripheral Vascular Disease: No - PULMONARY Hx Respiratory Disorders: No Hx Asthma: No Hx Bronchitis: No Hx Chronic Obstructive Pulmonary Disease (COPD): No Hx Emphysema: No Hx Pneumonia: No Hx Respiratory Aspiration: No Hx Respiratory Tract Infection: No Hx Sleep Apnea: No Hx Tuberculosis: No - NEUROLOGICAL Hx Neurological Disorder: No Hx Alzheimer's Disease: No HX Cerebrovascular Accident: No Hx Dementia: No Hx Dizziness: No Hx Meningitis: No Hx Migraine: No Hx Parkinson's Disease: No Hx Seizures: No Hx Transient Ischemic Attacks (TIA): No - HEENT Hx HEENT Problems: Yes Hx Blind: No Hx Cataracts: No Hx Deafness: Yes (b/l) Hx Difficulty Chewing: No Hx Epistaxis: No Hx Glaucoma: No Hx Macular Degeneration: No Other/Comment: HEARING IMPAIRED - RENAL Hx Kidney Stones: Yes Other/Comment: PT HAD STENT PUT IN AND REMOVED ONE WEEK AFTER BY DR Medrano. Kidney stones removed by laser. - ENDOCRINE/METABOLIC Hx Endocrine Disorders: Yes Hx Adrenal Cancer: No Hx Diabetes Insipidus: No (gestational on this ) - HEMATOLOGICAL/ONCOLOGICAL Hx Blood Disorders: No - INTEGUMENTARY Hx Dermatological Problems: No - MUSCULOSKELETAL/RHEUMATOLOGICAL Hx Musculoskeletal Disorders: Yes Hx Falls: No Other/Comment: HEEL SPURS - GASTROINTESTINAL Hx Gastrointestinal Disorders: No - GENITOURINARY/GYNECOLOGICAL Hx Genitourinary Disorders: No - PSYCHIATRIC Hx Psychophysiologic Disorder: No Hx Depression: No Hx Emotional Abuse: No Hx Physical Abuse: No Hx Substance Use: No - SURGICAL HISTORY Other/Comment: right kidney stent - ANESTHESIA Hx Anesthesia Reactions: No Meds Allergies/Adverse Reactions: Allergies Allergy/AdvReac Type Severity Reaction Status Date / Time No Known Allergies Allergy Verified 03/16/17 16:48 Physical Exam - Constitutional Appears: Non-toxic, In Acute Distress - Head Exam Head Exam: ATRAUMATIC, NORMAL INSPECTION, NORMOCEPHALIC - Eye Exam Eye Exam: EOMI, Normal appearance, PERRL - ENT Exam ENT Exam: Mucous Membranes Moist - Neck Exam Neck exam: Negative for: Lymphadenopathy, Tenderness - Respiratory Exam Respiratory Exam: Clear to Auscultation Bilateral, NORMAL BREATHING PATTERN - Cardiovascular Exam Cardiovascular Exam: REGULAR RHYTHM, +S1, +S2 - GI/Abdominal Exam GI & Abdominal Exam: Normal Bowel Sounds, Soft. absent: Tenderness - Exam Additional comments: Pain on palpation of groin/bladder area - Extremities Exam Extremities exam: Positive for: normal capillary refill, normal inspection, pedal pulses present. Negative for: pedal edema - Back Exam Back exam: CVA tenderness (R) - Neurological Exam Neurological exam: Alert, Oriented x3 Results - Vital Signs Recent Vital Signs: Last Vital Signs Temp 101.2 F H 03/16/17 18:23 Pulse 92 H 03/16/17 18:21 Resp 18 01/14/18 18:21 BP 129/84 03/16/17 18:21 Pulse Ox 98 03/16/17 18:21 - Labs Result Diagrams: 03/16/17 17:00 03/16/17 17:00 Assessment & Plan - Assessment and Plan (Free Text) Assessment: 36 year old female whose past medical history includes renal stones, who presents to the emergency department complaining of right flank pain, chills, and fever since last night. Patient was found to have 7mm by 9mm stone in the right proximal ureter, mild hydronephrosis and scattered small stones in both kidneys on CT 2 days ago. Plan: 1. Nephrolithiasis with possible UTI -CT Abdomen reviewed from 03/14: 7mm by 9mm stone in the right proximal ureter, mild hydronephrosis and scattered small stones in both kidneys -Temp 101.2 -13.2 WBC -NS@125 -NPO after midnigiht -Dilaudid PRN -cipro -urine cx from 2 days ago showed cipro sensitive Ecoli -Tylenol for fever -zofran -Urology consulted-Malika GI/DVT -SCD -Protonix <Karen Haq - Last Filed: 03/16/17 23:16> Results - Vital Signs Recent Vital Signs: Last Vital Signs Temp 98.7 F 03/16/17 21:32 Pulse 90 03/16/17 21:32 Resp 16 03/16/17 21:32 BP 140/90 03/16/17 21:32 Pulse Ox 100 03/16/17 19:47 - Labs Result Diagrams: 03/16/17 17:00 03/16/17 17:00 Labs: Laboratory Results - last 24 hr 03/16/17 03/16/17 18:30 21:11 pO2 64 H VBG pH 7.42 VBG pCO2 43.0 VBG HCO3 27.9 VBG Total CO2 29.2 H VBG O2 Sat (Calc) 96.8 H VBG Base Excess 2.9 H VBG Potassium 3.1 L Sodium 135.0 Chloride 104.0 Glucose 136 H Lactate 1.3 FiO2 21.0 Venous Blood Potassium 3.1 L Urine Color Yellow Urine Appearance Clear Urine pH 7.0 Ur Specific [place] 1.015 Urine Protein Trace H Urine Glucose (UA) Negative Urine Ketones Negative Urine Blood Small H Urine Nitrate Positive H Urine Bilirubin Negative Urine Urobilinogen 1.0 H Ur Leukocyte Esterase Trace H Urine RBC 10 - 15 Urine WBC 5 - 10 Ur Epithelial Cells 4 - 5 Urine Bacteria Large Urine HCG, Qual Negative Attending/Attestation - Attestation I have personally seen and examined this patient.: Yes I have fully participated in the care of the patient.: Yes I have reviewed all pertinent clinical information: Yes Notes (Text): 03/16/17 23:15 Patient was seen when she was in CODE room in the ER. Agree with history, physical examination, assessment and plan.
[2017-03-16 19:15] LABS: URINE BILIRUBIN NEGATIVE (NEGATIVE); URINE BLOOD SMALL (NEGATIVE); URINE GLUCOSE (UA) NEGATIVE (NEGATIVE); URINE LEUKOCYTE ESTERASE TRACE Leu/uL (NEGATIVE); URINE NITRATE POSITIVE (NEGATIVE); URINE PROTEIN TRACE mg/dL (<30 mg/dL)
[2017-03-16] MEDS ORDERED: Sodium Chloride 0.9% 1,000 ML IV SCH (19:15)
[2017-03-16 19:32] LABS: HCG,QUALITATIVE URINE NEGATIVE (NEGATIVE); URINE APPEARANCE CLEAR (CLEAR); URINE COLOR YELLOW (YELLOW)
[2017-03-16] MEDS ORDERED: HYDROmorphone 1 mg/ml ISec IVP PRN (19:45)
[2017-03-16] MEDS: Sodium Chloride 0.9% 1,000 ML IV SCH (19:46)
[2017-03-16] MEDS ORDERED: HYDROmorphone 0.5 mg/0.5 ml ISec IVP PRN (19:51)
[2017-03-16 20:30] LABS: URINE BACTERIA LARGE (NEG)
[2017-03-16 21:26] LABS: VENOUS BLOOD GAS BASE EXCESS 2.9 mmol/L (0.0-2.0); VENOUS BLOOD GAS PO2 64 mm/Hg (30-55); VENOUS BLOOD PH 7.42 (7.32-7.43)
[2017-03-16] MEDS ORDERED: metroNIDAZOLE IV 500 mg/100 ml 500 MG/100 ML BAG IVPB SCH (22:00)
[2017-03-17] MEDS: Sodium Chloride 0.9% 1,000 ML IV SCH ×2 (02:40→11:13)
[2017-03-17 08:26] LABS: BASO # 0.02 K/mm3 (0.0-2.0); BASO % 0.2 % (0.0-3.0); EOS # 0.1 (0.0-0.7); EOS % 0.5 % (1.5-5.0); GRAN # 8.87 (1.4-6.5); GRAN % 73.8 % (50.0-68.0); HEMOGLOBIN 12.8 g/dL (12.0-16.0); LYMPH # 1.5 (1.2-3.4); LYMPH % 12.7 % (22.0-35.0); MEAN CELL VOLUME 83.9 fl (80.0-105.0); MEAN CORPUSCULAR HEMOGLOBIN 27.2 pg (25.0-35.0); MEAN CORPUSCULAR HGB CONC 32.4 g/dl (31.0-37.0); MEAN PLATELET VOLUME 10.9 fl (7.0-11.0); MONO # 1.5 (0.1-0.6); MONO % 12.8 % (1.0-6.0); RBC 4.71 10^6/uL (3.5-6.1); RED CELL DISTRIBUTION WIDTH 14.9 % (11.5-14.5)
[2017-03-17 08:51] LABS: ALB/GLOB RATIO 1.1 (1.1-1.8); ALBUMIN 3.7 g/dL (3.0-4.8); ALT/SGPT 48 U/L (7-56); AST/SGOT 18 U/L (14-36); BLOOD UREA NITROGEN 8 mg/dL (7-21); CALCIUM 9.1 mg/dL (8.4-10.5); GFR AFRICAN-AMERICAN > 60; GFR NON-AFRICAN AMERICAN > 60
[2017-03-17] MEDS ORDERED: Potassium Chloride 40 mEq/30 ml LIQ UD PO ONE (12:16)
[2017-03-17] MEDS ORDERED: HYDROmorphone 0.5 mg/0.5 ml ISec IVP PRN (13:26)
[2017-03-17] MEDS ORDERED: cefTRIAXone 1 gm 1 GM/100 ML BAG IVPB SCH (13:30)
[2017-03-17] MEDS ORDERED: Lactated Ringer's 1,000 ML IV SCH (13:30)
[2017-03-17] MEDS ORDERED: Propofol 10 mg/ml Inj (20 ML) ONE ×2 (13:43→13:46)
[2017-03-17] MEDS ORDERED: Midazolam 2 MG/2 ML VIAL ONE (13:44)
[2017-03-17] MEDS ORDERED: Iohexol 240 (50 ml) ONE (14:46)
[2017-03-17] MEDS ORDERED: cefTRIAXone (Rocephin) 1 gm Inj ONE (14:46)
[2017-03-17] MEDS ORDERED: Gentamicin 80mg/50ml NS 80 MG/50 ML BAG IVPB ONE (15:59)
--- NOTE | 2017-03-17 15:59 | RAD ---
PROCEDURE: Retrograde pyelogram HISTORY: R/O STONES COMPARISON: CT 03/14/2017 TECHNIQUE: Fluoroscopy was provided in the operating room. 20.9 seconds of fluoro time were utilized. Nine images were submitted FINDINGS: A stone is seen in the distal ureter. There is passage of a wire and stent into the right renal collecting system. The study was performed by Dr. Bain IMPRESSION: As above
--- NOTE | 2017-03-17 18:12 | RAD ---
HISTORY: stones COMPARISON: No prior. FINDINGS: BOWEL: Constipation without fecal impaction or obstruction. BONES: Normal. OTHER FINDINGS: Position of the double J stent catheter(s): Satisfactory no evidence of calculus disease. IMPRESSION: No significant or acute findings to account for/ related to the clinical presentation.
[2017-03-17] MEDS: Oxycodone/Acetaminophen 5/325 mg Tab PO PRN (21:43)
--- NOTE | 2017-03-17 22:50 | PN ---
DATE: 03/17/2017 UROLOGY POSTOP NOTE See the history and physical, and consultation note. The patient is resting comfortably in postop. She is status post cysto stent placement for urolithiasis. She is feeling better. Vital signs are noted, within normal limits. Further diagnosis is ureteral stone, she is status post a cysto stent insertion on the right side. Further plans will follow. Mihir Bain MD
[2017-03-17] MEDS: Gentamicin 80mg/50ml NS 80 MG/50 ML BAG IVPB SCH (22:56)
--- NOTE | 2017-03-18 03:11 | OP ---
PROCEDURE DATE: 03/17/2017 PREOPERATIVE DIAGNOSES: Urolithiasis, hematuria, hydronephrosis, and impending sepsis. POSTOPERATIVE DIAGNOSES: Urolithiasis, hematuria, hydronephrosis, and impending sepsis. PROCEDURES: Examination under anesthesia, cystoscopy, right retrograde pyelogram, right double-J stent insertion. COMPLICATIONS: There were no complications. FINDINGS: 1. Normal bladder mucosa. 2. Stone. 3. Right hydro. At the termination of procedure, the double J-stent was in good location. INDICATIONS: See the history and physical for further details and consultation and previous notes of the patient. We discussed the options and she is here now for the above procedure. We decompressed the ureter. I explained to the patient that we are most likely not going to remove the stone. In fact, once we found where the stone was located, it was a little high up. No other major abnormalities. Blood loss less than 10 mL. At the termination of the procedure, the patient has a double J-stent in good location. DESCRIPTION OF PROCEDURE: After obtaining informed consent, the patient was placed on the table. Routine monitors were placed. Timeout was called to confirmed the patient and positioning. We introduced the cystoscope via the urethra. Ureteral orifice was identified. Multiple pictures were taken. A retrograde pyelogram was performed. Films were taken radiologist. A wire was passed up to the kidney. A right double-J stent was inserted. The bladder was emptied. Cystoscope was removed. Patient tolerated the procedure without complications. Exam under anesthesia revealed normal external genitalia. No pelvic or rectal masses are detected. The patient tolerated the procedure without complications. Mihir Bain MD
[2017-03-18] MEDS: Gentamicin 80mg/50ml NS 80 MG/50 ML BAG IVPB SCH ×3 (05:25→22:02)
--- NOTE | 2017-03-18 06:54 | CP.PCM.PN ---
<Vincent Uribe - Last Filed: 03/18/17 06:50> Subjective - Date & Time of Evaluation Date of Evaluation: 03/17/17 Time of Evaluation: 06:00 - Subjective Subjective: Patient was seen and examined bedside. Patient still complained of right sided flank pain, which has not been improving. No acute events overnight. Patient aware of plan with procedure with Urologist for later on today (03/17/17). Patient denied chest pain, shortness of breath, nausea or vomiting. Objective - Vital Signs/Intake and Output Vital Signs (last 24 hours): Temp Pulse Resp BP Pulse Ox 99.1 F 88 16 129/78 99 03/17/17 16:23 03/17/17 16:23 03/17/17 16:23 03/17/17 16:23 03/17/17 16:23 Intake and Output: 03/17/17 03/18/17 18:59 06:59 Intake Total 0 240 Balance 0 240 - Medications Medications: Current Medications Acetaminophen (Tylenol 325mg Tab) 650 mg PO Q6H PRN PRN Reason: Fever >100.4 F Hydromorphone HCl (Dilaudid) 1 mg IVP Q4 PRN PRN Reason: Pain, severe (8-10) Sodium Chloride (Sodium Chloride 0.9%) 1,000 mls @ 150 mls/hr IV .Q6H40M [facility] Last Admin: 03/17/17 11:13 Dose: 150 mls/hr Ceftriaxone Sodium (Rocephin 1 Gram Ivpb) 1 gm in 100 mls @ 100 mls/hr IVPB DAILY [facility] PRN Reason: Protocol Gentamicin Sulfate/Sodium Chloride (Gentamicin 80mg/50ml Ns) 80 mg in 50 mls @ 100 mls/hr IVPB Q8 [facility] Last Admin: 03/18/17 05:25 Dose: 100 mls/hr Ibuprofen (Motrin Tab) 800 mg PO Q6 PRN PRN Reason: Pain, moderate (4-7) Ondansetron HCl (Zofran Inj) 4 mg IVP Q8H PRN PRN Reason: Nausea/Vomiting Oxycodone/Acetaminophen (Percocet 5/325 Mg Tab) 1 tab PO Q6H PRN PRN Reason: Bladder Spasm Stop: 03/20/17 15:31 Last Admin: 03/17/17 21:43 Dose: 1 tab Pantoprazole Sodium (Protonix Inj) 40 mg IVP DAILY [facility] Last Admin: 03/17/17 11:01 Dose: 40 mg Phenazopyridine HCl (Pyridium) 200 mg PO PC [facility] Last Admin: 03/17/17 21:42 Dose: 200 mg - Labs Labs: 03/17/17 08:00 03/17/17 08:00 - Constitutional Appears: Non-toxic, No Acute Distress - Head Exam Head Exam: ATRAUMATIC, NORMAL INSPECTION, NORMOCEPHALIC - Eye Exam Eye Exam: EOMI, Normal appearance, PERRL - ENT Exam ENT Exam: Mucous Membranes Moist - Neck Exam Neck Exam: absent: Lymphadenopathy, Tenderness - Respiratory Exam Respiratory Exam: Clear to Ausculation Bilateral, NORMAL BREATHING PATTERN - Cardiovascular Exam Cardiovascular Exam: REGULAR RHYTHM, +S1, +S2 - Extremities Exam Extremities Exam: Normal Inspection - Back Exam Back Exam: CVA tenderness (R) - Neurological Exam Neurological Exam: Alert, Awake, Oriented x3 - Psychiatric Exam Psychiatric exam: Normal Affect Assessment and Plan - Assessment and Plan (Free Text) Assessment: 36 year old female whose past medical history includes renal stones, who presents to the emergency department complaining of right flank pain, chills, and fever since last night. Patient was found to have 7mm by 9mm stone in the right proximal ureter, mild hydronephrosis and scattered small stones in both kidneys on CT 2 days ago. Plan: 1. Nephrolithiasis with possible UTI -CT Abdomen reviewed from 03/14: 7mm by 9mm stone in the right proximal ureter, mild hydronephrosis and scattered small stones in both kidneys -Temp 99.1 -12.0 WBC -NS@125 -NPO -procedure with Dr. Daly urologist later on today -Dilaudid PRN -cipro -urine cx from 3 days ago showed cipro sensitive Ecoli -Tylenol for fever -zofran GI/DVT -SCD -Protonix <Lashanda Zuñiga - Last Filed: 03/18/17 07:21> Objective - Vital Signs/Intake and Output Vital Signs (last 24 hours): Temp Pulse Resp BP Pulse Ox 99.1 F 88 16 129/78 99 03/17/17 16:23 03/17/17 16:23 03/17/17 16:23 03/17/17 16:23 03/17/17 16:23 Intake and Output: 03/18/17 03/18/17 06:59 18:59 Intake Total 240 Balance 240 - Medications Medications: Current Medications Acetaminophen (Tylenol 325mg Tab) 650 mg PO Q6H PRN PRN Reason: Fever >100.4 F Hydromorphone HCl (Dilaudid) 1 mg IVP Q4 PRN PRN Reason: Pain, severe (8-10) Sodium Chloride (Sodium Chloride 0.9%) 1,000 mls @ 150 mls/hr IV .Q6H40M [facility] Last Admin: 03/17/17 11:13 Dose: 150 mls/hr Ceftriaxone Sodium (Rocephin 1 Gram Ivpb) 1 gm in 100 mls @ 100 mls/hr IVPB DAILY [facility] PRN Reason: Protocol Gentamicin Sulfate/Sodium Chloride (Gentamicin 80mg/50ml Ns) 80 mg in 50 mls @ 100 mls/hr IVPB Q8 [facility] Last Admin: 03/18/17 05:25 Dose: 100 mls/hr Ibuprofen (Motrin Tab) 800 mg PO Q6 PRN PRN Reason: Pain, moderate (4-7) Ondansetron HCl (Zofran Inj) 4 mg IVP Q8H PRN PRN Reason: Nausea/Vomiting Oxycodone/Acetaminophen (Percocet 5/325 Mg Tab) 1 tab PO Q6H PRN PRN Reason: Bladder Spasm Stop: 03/20/17 15:31 Last Admin: 03/17/17 21:43 Dose: 1 tab Pantoprazole Sodium (Protonix Inj) 40 mg IVP DAILY [facility] Last Admin: 03/17/17 11:01 Dose: 40 mg Phenazopyridine HCl (Pyridium) 200 mg PO [facility] Last Admin: 03/17/17 21:42 Dose: 200 mg - Labs Labs: 03/17/17 08:00 03/17/17 08:00 Attending/Attestation - Attestation I have personally seen and examined this patient.: Yes I have fully participated in the care of the patient.: Yes I have reviewed all pertinent clinical information, including history, physical exam and plan: Yes Notes (Text): 03/18/17 07:18 36 year old female with past medical history of renal stones who presented with right flank pain and fever. She was found to have 7 mm by 9 mm right proximal ureter stone with mild hydronephrosis on recent CT. Continue with NPO, IVF, analgesics and antibiotics. UCX grew E coli. Patient is NPO for urologic procedure today. Lashanda Zuñiga MD Hospitalist.
--- NOTE | 2017-03-18 08:56 | CON ---
DATE: 03/17/2017 UROLOGY CONSULTATION REASON FOR CONSULTATION: Severe renal colic. HISTORY OF PRESENT ILLNESS: A very pleasant lady, see my previously dictated note from 03/14/2017. The patient came with colic over the weekend. She called me just this morning that, date is 03/16, I was actually in a meeting here in the emergency room. She was having severe renal colic plus also she states she is feeling a chill. She does not know her exact temperature, but with the history that she has, we checked from Friday she has positive urine culture. She a stone obstructing, and she is having pain that got worse over the weekend plus the chill. I am very concerned about this. Bringing her into hospital for emergency admission for IV antibiotics, and she will go to the OR as quickly as possible, most likely on 03/17/2017. PAST MEDICAL AND SURGICAL HISTORY: Otherwise, listed and unremarkable. REVIEW OF SYSTEMS: As listed above. PHYSICAL EXAMINATION GENERAL: A well-nourished female, she is resting comfortably in the gurney. ABDOMEN: Relatively soft. BACK: No real CVA tenderness. DIAGNOSES: Urolithiasis, hematuria, hydronephrosis, and now positive urine culture and chills. PLAN: As is follows, so the concern is impending sepsis. The patient is being admitted to the hospital. We are going to start on IV antibiotics. Then we will plan for a cysto stent insertion if the OR is available. Most likely, I discussed with the patient Friday night about 7 o'clock. Possibility for stent insertion tonight versus tomorrow. We discussed all those options at length. We are going to start antibiotics clinically. In the meanwhile, we are going to the strain urine . Mihir Bain MD
[2017-03-18] MEDS ORDERED: Magnesium Hydroxide Susp 30 ml UD PO ONE (09:07)
[2017-03-18 09:24] LABS: BASO # 0.02 K/mm3 (0.0-2.0); BASO % 0.2 % (0.0-3.0); EOS # 0.1 (0.0-0.7); GRAN # 7.14 (1.4-6.5); GRAN % 74.8 % (50.0-68.0); HEMOGLOBIN 12.7 g/dL (12.0-16.0); LYMPH # 1.4 (1.2-3.4); LYMPH % 14.3 % (22.0-35.0); MEAN CELL VOLUME 84.7 fl (80.0-105.0); MEAN CORPUSCULAR HEMOGLOBIN 26.9 pg (25.0-35.0); MEAN CORPUSCULAR HGB CONC 31.8 g/dl (31.0-37.0); MONO # 0.9 (0.1-0.6); MONO % 9.7 % (1.0-6.0); RBC 4.72 10^6/uL (3.5-6.1); RED CELL DISTRIBUTION WIDTH 14.7 % (11.5-14.5); WHITE BLOOD COUNT 9.6 10^3/ul (4.5-11.0)
[2017-03-18 09:49] LABS: ALB/GLOB RATIO 1.1 (1.1-1.8); ALBUMIN 3.6 g/dL (3.0-4.8); ALT/SGPT 55 U/L (7-56); AST/SGOT 28 U/L (14-36); BLOOD UREA NITROGEN 10 mg/dL (7-21); CALCIUM 9.2 mg/dL (8.4-10.5); GFR AFRICAN-AMERICAN > 60; GFR NON-AFRICAN AMERICAN > 60
--- NOTE | 2017-03-18 11:41 | CP.PCM.PN ---
<Vincent Uribe - Last Filed: 03/19/17 13:43> Subjective - Date & Time of Evaluation Date of Evaluation: 03/18/17 Time of Evaluation: 06:00 - Subjective Subjective: Patient seen and examined bedside. Patient states her back pain has decreased. SHe denies any nausea, vomiting, abdominal pain. she states she has slight discomfort when urinating. Objective - Vital Signs/Intake and Output Vital Signs (last 24 hours): Temp Pulse Resp BP Pulse Ox 98 F 75 20 115/75 98 03/18/17 08:00 03/18/17 08:00 03/18/17 08:00 03/18/17 08:00 03/18/17 08:00 Intake and Output: 03/18/17 03/18/17 06:59 18:59 Intake Total 240 Balance 240 - Medications Medications: Current Medications Acetaminophen (Tylenol 325mg Tab) 650 mg PO Q6H PRN PRN Reason: Fever >100.4 F Hydromorphone HCl (Dilaudid) 1 mg IVP Q4 PRN PRN Reason: Pain, severe (8-10) Sodium Chloride (Sodium Chloride 0.9%) 1,000 mls @ 150 mls/hr IV .Q6H40M [facility] Last Admin: 03/17/17 11:13 Dose: 150 mls/hr Ceftriaxone Sodium (Rocephin 1 Gram Ivpb) 1 gm in 100 mls @ 100 mls/hr IVPB DAILY [facility] PRN Reason: Protocol Gentamicin Sulfate/Sodium Chloride (Gentamicin 80mg/50ml Ns) 80 mg in 50 mls @ 100 mls/hr IVPB Q8 [facility] Last Admin: 03/18/17 05:25 Dose: 100 mls/hr Ibuprofen (Motrin Tab) 800 mg PO Q6 PRN PRN Reason: Pain, moderate (4-7) Ondansetron HCl (Zofran Inj) 4 mg IVP Q8H PRN PRN Reason: Nausea/Vomiting Oxycodone/Acetaminophen (Percocet 5/325 Mg Tab) 1 tab PO Q6H PRN PRN Reason: Bladder Spasm Stop: 03/20/17 15:31 Last Admin: 03/17/17 21:43 Dose: 1 tab Pantoprazole Sodium (Protonix Inj) 40 mg IVP DAILY [facility] Last Admin: 03/17/17 11:01 Dose: 40 mg Phenazopyridine HCl (Pyridium) [address] [facility] Last Admin: 03/18/17 11:19 Dose: 200 mg - Labs Labs: 03/18/17 09:00 03/18/17 09:00 - Constitutional Appears: Non-toxic, No Acute Distress - Head Exam Head Exam: ATRAUMATIC, NORMAL INSPECTION, NORMOCEPHALIC - Eye Exam Eye Exam: EOMI, Normal appearance - ENT Exam ENT Exam: Mucous Membranes Moist - Neck Exam Neck Exam: absent: Lymphadenopathy, Tenderness - Respiratory Exam Respiratory Exam: Clear to Ausculation Bilateral, NORMAL BREATHING PATTERN - Cardiovascular Exam Cardiovascular Exam: REGULAR RHYTHM, +S1, +S2 - Extremities Exam Extremities Exam: absent: Pedal Edema - Neurological Exam Neurological Exam: Alert, Awake, Oriented x3 Assessment and Plan - Assessment and Plan (Free Text) Assessment: 36 year old female whose past medical history includes renal stones, who presents to the emergency department complaining of right flank pain, chills, and fever since last night. Patient was found to have 7mm by 9mm stone in the right proximal ureter, mild hydronephrosis and scattered small stones in both kidneys on CT 2 days ago. Patient status post double J stent placement. Plan: 1. Nephrolithiasis with possible UTI -CT Abdomen reviewed from 03/14: 7mm by 9mm stone in the right proximal ureter, mild hydronephrosis and scattered small stones in both kidneys -afebrile -NS@125 -Double J stent placed -Dilaudid PRN -gentamycin -urine cx from 3 days ago showed cipro sensitive Ecoli -zofran GI/DVT -SCD -Protonix <Lashanda Zuñiga - Last Filed: 03/19/17 14:56> Objective - Vital Signs/Intake and Output Vital Signs (last 24 hours): Temp Pulse Resp BP Pulse Ox 97.8 F 60 20 125/84 96 03/19/17 07:00 03/19/17 07:00 03/19/17 07:00 03/19/17 07:00 03/19/17 07:00 Intake and Output: 03/19/17 03/19/17 06:59 18:59 Intake Total 660 Balance 660 - Labs Labs: 03/19/17 08:50 03/19/17 08:50 Attending/Attestation - Attestation I have personally seen and examined this patient.: Yes I have fully participated in the care of the patient.: Yes I have reviewed all pertinent clinical information, including history, physical exam and plan: Yes Notes (Text): 03/19/17 14:55 36 year old female with past medical history of renal stones who presented with right flank pain and fever. She was found to have 7 mm by 9 mm right proximal ureter stone with mild hydronephrosis on recent CT. She is on iv fluids, analgesics and antibiotics. UCX grew E coli. She was seen by urology and is s/p cystoscopy with stent. Will follow up with urology recommendations. Lashanda Zuñiga MD Hospitalist.
[2017-03-18] MEDS: Oxycodone/Acetaminophen 5/325 mg Tab PO PRN (14:45)
[2017-03-19] MEDS: Oxycodone/Acetaminophen 5/325 mg Tab PO PRN (00:31)
[2017-03-19] MEDS: Gentamicin 80mg/50ml NS 80 MG/50 ML BAG IVPB SCH (06:01)
[2017-03-19 08:57] LABS: BASO # 0.02 K/mm3 (0.0-2.0); BASO % 0.3 % (0.0-3.0); EOS # 0.2 (0.0-0.7); EOS % 2.5 % (1.5-5.0); GRAN # 4.82 (1.4-6.5); GRAN % 64.6 % (50.0-68.0); HEMOGLOBIN 13.6 g/dL (12.0-16.0); LYMPH # 1.6 (1.2-3.4); LYMPH % 20.9 % (22.0-35.0); MEAN CELL VOLUME 84.2 fl (80.0-105.0); MEAN CORPUSCULAR HEMOGLOBIN 27.3 pg (25.0-35.0); MEAN CORPUSCULAR HGB CONC 32.4 g/dl (31.0-37.0); MEAN PLATELET VOLUME 10.8 fl (7.0-11.0); MONO # 0.9 (0.1-0.6); MONO % 11.7 % (1.0-6.0); RBC 4.99 10^6/uL (3.5-6.1); RED CELL DISTRIBUTION WIDTH 14.4 % (11.5-14.5); WHITE BLOOD COUNT 7.5 10^3/ul (4.5-11.0)
[2017-03-19 09:09] LABS: ALB/GLOB RATIO 1.1 (1.1-1.8); ALBUMIN 3.9 g/dL (3.0-4.8); ALT/SGPT 123 U/L (7-56); AST/SGOT 106 U/L (14-36); BLOOD UREA NITROGEN 11 mg/dL (7-21); CALCIUM 9.5 mg/dL (8.4-10.5); GFR AFRICAN-AMERICAN > 60; GFR NON-AFRICAN AMERICAN > 60
[2017-03-19 09:36] VITALS: BP 125/84; PULSE 60; RESP 20; TEMP 97.8; O2SAT 96
[2017-03-19] MEDS ORDERED: oxyCODONE 5 mg Immediate Release Tab PO PRN (11:30)
--- NOTE | 2017-03-19 11:48 | CP.PCM.DIS ---
Provider - Provider Date of Admission: 03/16/17 18:15 Attending physician: Lashanda Zuñiga MD Primary care physician: Ilia Franks JD, MD [facility] Course - Lab Results Lab Results: Most Recent Lab Values WBC 7.5 10^3/ul (4.5-11.0) D 03/19/17 08:50 RBC 4.99 10^6/uL (3.5-6.1) 03/19/17 08:50 Hgb 13.6 g/dL (12.0-16.0) 03/19/17 08:50 Hct 42.0 % (36.0-48.0) 03/19/17 08:50 MCV 84.2 fl (80.0-105.0) 03/19/17 08:50 MCH 27.3 pg (25.0-35.0) 03/19/17 08:50 MCHC 32.4 g/dl (31.0-37.0) 03/19/17 08:50 RDW 14.4 % (11.5-14.5) 03/19/17 08:50 Plt Count 254 10^3/uL (120.0-450.0) 03/19/17 08:50 MPV 10.8 fl (7.0-11.0) 03/19/17 08:50 Gran % 64.6 % (50.0-68.0) 03/19/17 08:50 Lymph % (Auto) 20.9 % (22.0-35.0) L 03/19/17 08:50 [place] % (Auto) 11.7 % (1.0-6.0) H 03/19/17 08:50 Eos % (Auto) 2.5 % (1.5-5.0) 03/19/17 08:50 Baso % (Auto) 0.3 % (0.0-3.0) 03/19/17 08:50 Gran # 4.82 (1.4-6.5) 03/19/17 08:50 Lymph # 1.6 (1.2-3.4) 03/19/17 08:50 [place] # 0.9 (0.1-0.6) H 03/19/17 08:50 Eos # 0.2 (0.0-0.7) 03/19/17 08:50 Baso # 0.02 K/mm3 (0.0-2.0) 03/19/17 08:50 pO2 64 mm/Hg (30-55) H 03/16/17 21:11 VBG pH 7.42 (7.32-7.43) 03/16/17 21:11 VBG pCO2 43.0 (40-60) 03/16/17 21:11 VBG HCO3 27.9 mmol/l (21-28) 03/16/17 21:11 VBG Total CO2 29.2 mmol.L (22-28) H 03/16/17 21:11 VBG O2 Sat (Calc) 96.8 % (40-65) H 03/16/17 21:11 VBG Base Excess 2.9 mmol/L (0.0-2.0) H 03/16/17 21:11 VBG Potassium 3.1 mmol/L (3.6-5.2) L 03/16/17 21:11 Sodium 135.0 mmol/L (132-148) 03/16/17 21:11 Chloride 104.0 mmol/L (98-107) 03/16/17 21:11 Glucose 136 mg/dl (65-105) H 03/16/17 21:11 Lactate 1.3 mmol/L (0.7-2.1) 03/16/17 21:11 FiO2 21.0 % 03/16/17 21:11 Sodium 137 mmol/L (132-148) 03/19/17 08:50 Potassium 3.6 mmol/L (3.6-5.0) 03/19/17 08:50 Chloride 100 mmol/L (98-107) 03/19/17 08:50 Carbon Dioxide 25 mmol/L (21-33) 03/19/17 08:50 Anion Gap 16 (10-20) 03/19/17 08:50 BUN 11 mg/dL (7-21) 03/19/17 08:50 Creatinine 0.5 mg/dl (0.7-1.2) L 03/19/17 08:50 Est GFR ( Amer) > 60 03/19/17 08:50 Est GFR (Non-Af Amer) > 60 03/19/17 08:50 Random Glucose 203 mg/dL (70-110) H 03/19/17 08:50 Calcium 9.5 mg/dL (8.4-10.5) 03/19/17 08:50 Total Bilirubin 0.5 mg/dL (0.2-1.3) 03/19/17 08:50 AST 106 U/L (14-36) H D 03/19/17 08:50 ALT 123 U/L (7-56) H 03/19/17 08:50 Alkaline Phosphatase 112 U/L (38-126) 03/19/17 08:50 Total Protein 7.4 g/dL (5.8-8.3) 03/19/17 08:50 Albumin 3.9 g/dL (3.0-4.8) 03/19/17 08:50 Globulin 3.6 gm/dL 03/19/17 08:50 Albumin/Globulin Ratio 1.1 (1.1-1.8) 03/19/17 08:50 Venous Blood Potassium 3.1 mmol/L (3.6-5.2) L 03/16/17 21:11 Urine Color Yellow (YELLOW) 03/16/17 18:30 Urine Appearance Clear (CLEAR) 03/16/17 18:30 Urine pH 7.0 (4.7-8.0) 03/16/17 18:30 Ur Specific [place] 1.015 (1.005-1.035) 03/16/17 18:30 Urine Protein Trace mg/dL (<30 mg/dL) H 03/16/17 18:30 Urine Glucose (UA) Negative mg/dL (NEGATIVE) 03/16/17 18:30 Urine Ketones Negative mg/dL (NEGATIVE) 03/16/17 18:30 Urine Blood Small (NEGATIVE) H 03/16/17 18:30 Urine Nitrate Positive (NEGATIVE) H 03/16/17 18:30 Urine Bilirubin Negative (NEGATIVE) 03/16/17 18:30 Urine Urobilinogen 1.0 E.U./dL (<1 E.U./dL) H 03/16/17 18:30 Ur Leukocyte Esterase Trace Christine/uL (NEGATIVE) H 03/16/17 18:30 Urine RBC 10 - 15 /hpf (0-2) 03/16/17 18:30 Urine WBC 5 - 10 /hpf (0-6) 03/16/17 18:30 Ur Epithelial Cells 4 - 5 /hpf (0-5) 03/16/17 18:30 Urine Bacteria Large (NEG) 03/16/17 18:30 Urine HCG, Qual Negative (NEGATIVE) 03/16/17 18:30 Discharge Exam - Head Exam Head Exam: ATRAUMATIC, NORMAL INSPECTION, NORMOCEPHALIC Discharge Plan - Discharge Medications Prescriptions: Ciprofloxacin [Cipro] 500 mg PO Q12 #10 tab oxyCODONE [oxyCODONE Immediate Release Tab] 5 mg PO Q6H PRN #10 tab PRN Reason: Pain, Moderate (4-7) - Follow Up Plan Condition: STABLE Disposition: HOME/ ROUTINE Additional Instructions: Please continue antibiotics cipro for 5 days twice a day. Liver function should be tested again with Primary care doctor to follow up. In addition please follow up with Dr. Bain for appointment in [facility]. Referrals: Ilia Franks JD, MD [Primary Care Provider] -
== END 2017-03-19 13:59 | disposition home or self-care (01) | DRG 324 ==
LOC: ED 16:25 → ERH 18:15 → 5RSO 03-17 01:15
PROVIDERS: ADMIT Internal Medicine; ATTEND Internal Medicine
PROC: BT1D1ZZ Fluoroscopy of Right Kidney, Ureter and Bladder using Low Osmolar Contrast (ICD-10-PCS; 2017-03-17)
PROC: 0T768DZ Dilation of Right Ureter with Intraluminal Device, Via Natural or Artificial Opening Endoscopic (ICD-10-PCS; principal; 2017-03-17 12:45)
DX: N13.2 Hydronephrosis with renal and ureteral calculous obstruction (principal); N39.0 Urinary tract infection, site not specified; B96.20 Unspecified Escherichia coli [E. coli] as the cause of diseases classified elsewhere; R31.9 Hematuria, unspecified

== ENCOUNTER 2017-07-08 10:07 | Inpatient (IN) | payer OTHER ==
[2017-07-08] MEDS ORDERED: Sodium Chloride 0.9% 1,000 ML IV STA (10:19)
--- NOTE | 2017-07-08 10:28 | ED PDOC ---
Arrival/HPI - General Chief Complaint: Female Genitourinary Time Seen by Provider: 07/08/17 10:15 Historian: Patient - History of Present Illness Narrative History of Present Illness (Text): 07/08/17 10:25 36yo female with PMhx of kidney stone who present with right flank pain since last night with associated nausea and vomiting x1. States she started to have urinary frequency today. She describes pain as cramping. States the last time she saw a Urologist for kidney stone was in March. Did not take any medication for the pain. Denies dysuria, hematuria, fever, chills, any other complaint. Past Medical History - Provider Review Nursing Documentation Reviewed: Yes - Infectious Disease Hx of Infectious Diseases: None - Tetanus Immunization Tetanus Immunization: Unknown - Past Medical History Past Medical History: No Previous - Cardiac Hx Cardiac Disorders: No - Pulmonary Hx Respiratory Disorders: No - Neurological Hx Neurological Disorder: No - HEENT Hx HEENT Disorder: Yes Hx Deafness: Yes Other/Comment: HEARING IMPAIRED - Renal Hx Renal Disorder: Yes Hx Kidney Stones: Yes - Endocrine/Metabolic Hx Endocrine Disorders: Yes Other/Comment: INDUCED DM - Hematological/Oncological Hx Blood Disorders: No - Integumentary Hx Dermatological Disorder: No - Musculoskeletal/Rheumatological Hx Musculoskeletal Disorders: No - Gastrointestinal Hx Gastrointestinal Disorders: No - Genitourinary/Gynecological Hx Genitourinary Disorders: No - Psychiatric Hx Psychophysiologic Disorder: No Hx Substance Use: No - Past Surgical History Past Surgical History: No Previous - Surgical History Other/Comment: KIDNEY STONE REMOVAL - Anesthesia Hx Anesthesia Reactions: No - Suicidal Assessment Feels Threatened In Home Enviroment: No Family/Social History - Physician Review Nursing Documentation Reviewed: Yes Family/Social History: Unknown Family HX Smoking Status: Never Smoked Hx Alcohol Use: Yes (social) Hx Substance Use: No Hx Substance Use Treatment: No Allergies/Home Meds Allergies/Adverse Reactions: Allergies No Known Allergies Allergy (Verified 07/08/17 17:14) Home Medications: Home Meds Medication Instructions Recorded Confirmed No Known Home Med 07/08/17 07/08/17 Review of Systems - Physician Review All systems were reviewed & negative as marked: Yes - Review of Systems Constitutional: Normal Eyes: Normal ENT: Normal Respiratory: Normal Cardiovascular: Normal Gastrointestinal: Normal, Nausea, Vomiting. absent: Constipation, Diarrhea, Hematochezia, Hematemesis Genitourinary Female: Normal Musculoskeletal: Normal Skin: Normal Neurological: Normal Endocrine: Normal Hemo/Lymphatic: Normal Psychiatric: Normal Physical Exam Vital Signs Reviewed: Yes Vital Signs Temp Pulse Resp BP Pulse Ox 07/08/17 14:09 91 H 18 126/64 98 07/08/17 11:46 97 H 18 122/71 95 07/08/17 10:11 98.7 F 99 H 19 121/86 96 Temperature: Afebrile Blood Pressure: Normal Pulse: Regular Respiratory Rate: Normal Appearance: Positive for: Well-Appearing, Non-Toxic, Comfortable Pain Distress: None Mental Status: Positive for: Alert and Oriented X 3 - Systems Exam Head: Present: Atraumatic, Normocephalic Pupils: Present: PERRL Extroacular Muscles: Present: EOMI Conjunctiva: Present: Normal Mouth: Present: Moist Mucous Membranes Neck: Present: Normal Range of Motion Respiratory/Chest: Present: Clear to Auscultation, Good Air Exchange. No: Respiratory Distress, Accessory Muscle Use Cardiovascular: Present: Regular Rate and Rhythm, Normal S1, S2. No: Murmurs Abdomen: Present: Tenderness (Right flank), Other (soft). No: Distention, Peritoneal Signs, Rebound, Guarding, McBurney's Point Tender, Rovsing's Sign Present Back: Present: Normal Inspection. No: CVA Tenderness Upper Extremity: Present: Normal Inspection. No: Cyanosis, Edema Lower Extremity: Present: Normal Inspection. No: Edema Neurological: Present: GCS=15, CN II-XII Intact, Speech Normal Skin: Present: Warm, Dry, Normal Color. No: Rashes Psychiatric: Present: Alert, Oriented x 3, Normal Insight, Normal Concentration Medical Decision Making ED Course and Treatment: 07/08/17 10:27 36yo female in ED for right flank pain, nausea and vomiting sicne last night. Labs ordered I L NS, Zofran, Toradol ordered Abdominal CT ordered will reassess pt 07/08/17 19:10 Pt's pain improved in ED, but still complain of some pain. Leukocytosis was noted and Cipro was given. Pt was admitted . Case was DW Dr. Zuñiga and he accepted pt for admission Abdominal/Pelvis CT IMPRESSION: There is a large stone in the right distal ureter with severe hydronephrosis and hydroureter. The stone measures 7 mm diameter and 12 mm in length. There is a moderate amount of perinephric and periureteral stranding. CT result was SANAM Bain and he request that he be consult. States he will see pt in the Hospital. Result and plan was SANAM the pt and she agreed. - Lab Interpretations Lab Results: 07/08/17 12:13 07/08/17 12:13 Lab Results 07/08/17 12:13: Urine Color Yellow, Urine Appearance Clear, Urine pH 7.0, Ur Specific [place] 1.020, Urine Protein 30 H, Urine Glucose (UA) Negative, Urine Ketones Negative, Urine Blood Moderate H, Urine Nitrate Negative, Urine Bilirubin Negative, Urine Urobilinogen 1.0 H, Ur Leukocyte Esterase Trace H, Urine RBC 25 - 30, Urine WBC 5 - 10, Ur Epithelial Cells 6 - 8, Amorphous Sediment Few, Urine Bacteria Many, Urine Other Uyeast 07/08/17 12:13: Sodium 142, Potassium 3.7, Chloride 103, Carbon Dioxide 25, Anion Gap 17, BUN 14, Creatinine 0.8, Est GFR ( Amer) > 60, Est GFR (Non- Af Amer) > 60, Random Glucose 187 H, Calcium 9.1, Magnesium 1.8, Total Bilirubin 0.6, AST 31, ALT 43, Alkaline Phosphatase 107, Total Protein 7.2, Albumin 4.1, Globulin 3.1, Albumin/Globulin Ratio 1.3, Lipase 16 L 07/08/17 12:13: PT 12.7 H, INR 1.10 H, APTT 19.7 L 07/08/17 12:13: WBC 19.4 H D, RBC 5.15, Hgb 14.0, Hct 42.3, MCV 82.1, MCH 27.2, MCHC 33.1, RDW 14.2, Plt Count 226, MPV 11.0, Gran % 92.2 H, Lymph % (Auto) 3.7 L, [place] % (Auto) 3.9, Eos % (Auto) 0.1 L, Baso % (Auto) 0.1, Gran # 17.94 H, Lymph # (Auto) 0.7 L, [place] # (Auto) 0.8 H, Eos # (Auto) 0.0, Baso # (Auto) 0.02 , Neutrophils % (Manual) 91 H, Lymphocytes % (Manual) 5 L, Monocytes % (Manual) 4, Platelet Evaluation Normal, Anisocytosis (manual) Slight, Microcytosis ( manual) Slight - RAD Interpretation Radiology Orders: 07/08/17 10:19 ABD & PELVIS W/O PO OR IV CONT [CT] Stat - Medication Orders Current Medication Orders: Famotidine (Pepcid) 20 mg PO BID [facility] Heparin Sodium (Porcine) (Heparin) 5,000 units SC Q12H SAURAV PRN Reason: Protocol Last Admin: 07/08/17 16:07 Dose: 5,000 units MAR aPTT Document 07/08/17 16:07 OCS (Rec: 07/08/17 16:07 OCS [id number]) aPTT aPTT (secs) 19.7 Subcutaneous Administrations Document 07/08/17 16:07 OCS (Rec: 07/08/17 16:07 OCS [id number]) Injection Site MAR Injection Site Umbilicus Charges for Administration # of Subcutaneous Administrations 1 Sodium Chloride (Sodium Chloride 0.9%) 1,000 mls @ 150 mls/hr IV .Q6H40M SAURAV Last Admin: 07/08/17 16:07 Dose: 150 mls/hr eMAR Start Stop Document 07/08/17 16:07 OCS (Rec: 07/08/17 16:07 OCS [id number]) Intravenous Solution Start Date 07/08/17 Start Time 16:07 Ceftriaxone Sodium (Rocephin 1 Gram Ivpb) 1 gm in 100 mls @ 100 mls/hr IVPB DAILY SAURAV PRN Reason: Protocol Last Admin: 07/08/17 16:07 Dose: 100 mls/hr eMAR Start Stop Document 07/08/17 16:07 OCS (Rec: 07/08/17 16:07 OCS [id number]) Intravenous Solution Start Date 07/08/17 Start Time 16:07 End Date 07/08/17 End time 17:07 Total Infusion Time 60 Morphine Sulfate (Morphine) 2 mg IVP Q4 PRN PRN Reason: Pain, moderate (4-7) Ondansetron HCl (Zofran Inj) 4 mg IVP Q6 PRN PRN Reason: Nausea/Vomiting Discontinued Medications Sodium Chloride (Sodium Chloride 0.9%) 1,000 mls @ 1,000 mls/hr IV .Q1H STA Stop: 07/08/17 11:18 Last Admin: 07/08/17 11:36 Dose: 1,000 mls/hr eMAR Start Stop Document 07/08/17 11:36 OCS (Rec: 07/08/17 11:36 OCS [id number]) Intravenous Solution Start Date 07/08/17 Start Time 11:36 End Date 07/08/17 End time 12:36 Total Infusion Time 60 Ciprofloxacin (Cipro 400mg/200ml Dsw) 400 mg in 200 mls @ 133.3 mls/hr IVPB STAT STA PRN Reason: Protocol Stop: 07/08/17 14:37 Last Admin: 07/08/17 14:05 Dose: 133.3 mls/hr eMAR Start Stop Document 07/08/17 14:05 OCS (Rec: 07/08/17 14:06 OCS [id number]) Intravenous Solution Start Date 07/08/17 Start Time 14:05 End Date 07/08/17 End time 15:35 Total Infusion Time 90 Ketorolac Tromethamine (Toradol) 30 mg IVP STAT STA Stop: 07/08/17 10:20 Last Admin: 07/08/17 11:36 Dose: 30 mg MAR Pain Assessment Document 07/08/17 11:36 OCS (Rec: 07/08/17 11:37 OCS [id number]) Pain Reassessment Is this a pain reassessment? Yes Sleep Is patient sleeping during reassessment? No Presence of Pain Presence of Pain Yes Pain Scale Used Pain Scale Used Numeric Location Left, Right or Bilateral Right Upper or Lower Lower Pain Location Body Site Back Description Description Constant Intensity of Pain at present 10 Pain Behavior Facial Grimacing Aggravating Factors ADL's IVP Administration Document 07/08/17 11:36 OCS (Rec: 07/08/17 11:37 OCS [id number]) Charges for Administration # of IVP Administrations 1 Ondansetron HCl (Zofran Inj) 4 mg IVP STAT STA Stop: 07/08/17 10:26 Last Admin: 07/08/17 11:36 Dose: 4 mg IVP Administration Document 07/08/17 11:36 OCS (Rec: 07/08/17 11:36 OCS [id number]) Charges for Administration # of IVP Administrations 1 Disposition/Present on Arrival - Present on Arrival Any Indicators Present on Arrival: No History of DVT/PE: No History of Uncontrolled Diabetes: No Urinary Catheter: No History of Decub. Ulcer: No History Surgical Site Infection Following: None - Disposition Have Diagnosis and Disposition been Completed?: Yes Diagnosis: Hydronephrosis, Ureterolithiasis, Pyelonephritis Disposition: HOSPITALIZED Disposition Time: 14:15 Patient Plan: Admission Patient Problems: Current Active Problems Problem Status Onset Hydronephrosis Acute Kidney stone Acute Condition: FAIR
[2017-07-08 12:20] LABS: BASO # 0.02 K/mm3 (0.0-2.0); BASO % 0.1 % (0.0-3.0); EOS % 0.1 % (1.5-5.0); GRAN # 17.94 (1.4-6.5); GRAN % 92.2 % (50.0-68.0); LYMPH # 0.7 (1.2-3.4); LYMPH % 3.7 % (22.0-35.0); MEAN CELL VOLUME 82.1 fl (80.0-105.0); MEAN CORPUSCULAR HEMOGLOBIN 27.2 pg (25.0-35.0); MEAN CORPUSCULAR HGB CONC 33.1 g/dl (31.0-37.0); MONO # 0.8 (0.1-0.6); MONO % 3.9 % (1.0-6.0); PLATELET COUNT 226 10^3/uL (120.0-450.0); RBC 5.15 10^6/uL (3.5-6.1); RED CELL DISTRIBUTION WIDTH 14.2 % (11.5-14.5); WHITE BLOOD COUNT 19.4 10^3/ul (4.5-11.0)
[2017-07-08 12:23] LABS: URINE BILIRUBIN NEGATIVE (NEGATIVE); URINE BLOOD MODERATE (NEGATIVE); URINE GLUCOSE (UA) NEGATIVE (NEGATIVE); URINE LEUKOCYTE ESTERASE TRACE Leu/uL (NEGATIVE); URINE PROTEIN 30 mg/dL (<30 mg/dL)
[2017-07-08 12:28] LABS: URINE APPEARANCE CLEAR (CLEAR); URINE COLOR YELLOW (YELLOW)
[2017-07-08 12:31] LABS: ALB/GLOB RATIO 1.3 (1.1-1.8); ALBUMIN 4.1 g/dL (3.0-4.8); ALT/SGPT 43 U/L (7-56); AST/SGOT 31 U/L (14-36); BLOOD UREA NITROGEN 14 mg/dL (7-21); CALCIUM 9.1 mg/dL (8.4-10.5); GFR AFRICAN-AMERICAN > 60; GFR NON-AFRICAN AMERICAN > 60; LIPASE 16 U/L (23-300)
[2017-07-08 12:33] LABS: INR 1.1 (0.93-1.08); PARTIAL THROMBOPLASTIN TIME 19.7 Seconds (25.1-36.5); PROTHROMBIN TIME 12.7 SECONDS (9.4-12.5)
--- NOTE | 2017-07-08 12:39 | CT ---
PROCEDURE: CT Abdomen and Pelvis without intravenous contrast HISTORY: Right flank pain COMPARISON: None. TECHNIQUE: Without contrast.. Contrast Dose: Radiation dose: Total exam DLP = Total exam DLP = 729 mGy-cm. This CT exam was performed using one or more of the following dose reduction techniques: Automated exposure control, adjustment of the mA and/or kV according to patient size, and/or use of iterative reconstruction technique. FINDINGS: LOWER THORAX: Unremarkable. LIVER: Unremarkable. No gross lesion or ductal dilatation. GALLBLADDER AND BILE DUCTS: Unremarkable. PANCREAS: Unremarkable. No gross lesion or ductal dilatation. SPLEEN: Unremarkable. ADRENALS: Unremarkable. No mass. KIDNEYS AND URETERS: There is a large stone in the right distal ureter with severe hydronephrosis and hydroureter. The stone measures 7 mm diameter and 12 mm in length. There is a moderate amount of perinephric and periureteral stranding. Small stones are seen in both kidneys. VASCULATURE: Unremarkable. No aortic aneurysm. BOWEL: Unremarkable. No obstruction. No gross mural thickening. APPENDIX: Unremarkable. Normal appendix. PERITONEUM: Unremarkable. No free fluid. No free air. LYMPH NODES: Unremarkable. No enlarged lymph nodes. BLADDER: Unremarkable. REPRODUCTIVE: Unremarkable. BONES: No acute fracture. OTHER FINDINGS: None. IMPRESSION: There is a large stone in the right distal ureter with severe hydronephrosis and hydroureter. The stone measures 7 mm diameter and 12 mm in length. There is a moderate amount of perinephric and periureteral stranding.
[2017-07-08 12:44] LABS: URINE AMORPHOUS SEDIMENT FEW; URINE BACTERIA MANY (NEG); URINE RBC 25 - 30 /hpf (0-2)
[2017-07-08] MEDS ORDERED: Ciprofloxacin 400mg/200ml D5W 400 MG/200 ML BAG IVPB STA (13:07)
[2017-07-08 13:16] LABS: ANISOCYTOSIS SLIGHT; LYMPHOCYTE 5 % (22.0-35.0); MONOCYTE 4 % (1.0-6.0); NEUTROPHIL 91 % (50.0-70.0); PLATELET ESTIMATE NORMAL (NORMAL)
[2017-07-08 13:17] LABS: MICROCYTOSIS SLIGHT
--- NOTE | 2017-07-08 15:13 | CP.PCM.HP ---
<Mei Cook - Last Filed: 07/08/17 15:24> History of Present Illness - History of Present Illness History of Present Illness: IM H & P for Dr. Deric Cook, PGY-1 Pt S & E at bedside at 1430 36F w/PMH sig for nephrolithiasis admitted for Right flank pain x 1 day. Pt reports sudden onset of moderate-severe right flank pain at approximately 11pm on day prior to evaluation, with radiation to right lower quadrant of abdomen, constant since onset, no alleviated by Aleve. Admits to insomnia due to pain, N , V x 1 (nb, bilious), urinary frequency, chills, fatigue, dry mouth, occasional LE swelling (stands 5 hrs for work). Last BM on day of admission ( normal). Denies hematuria, fevers, constipation, diarrhea, decreased urinary stream, dysuria, changes in eating habits, ESQUIVEL, vision changes, SOB, chest pain, other complaints. In ED CT abdomen w/large stone in the right distal ureter with severe hydronephrosis and hydroureter. The stone measures 7 mm diameter and 12 mm in length. There is a moderate amount of perinephric and periureteral stranding. Leukocytosis of 19.4. Afebrile. 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 absent: Fever, Headache, Weakness - EENT Eyes: absent: Change in Vision Ears: absent: Dizziness Nose/Mouth/Throat: absent: Sore Throat - Cardiovascular Cardiovascular: absent: Chest Pain, Palpitations - Respiratory Respiratory: absent: Cough - Gastrointestinal Gastrointestinal: Nausea, Vomiting. absent: Abdominal Pain, Change in Bowel Habits, Change in Stool Character, Constipation, Diarrhea, Hematemesis, Hematochezia - Genitourinary Genitourinary: Flank Pain, Urinary Frequency, Urinary Urgency, Hx Renal/Bladder Calculi, Hx /Renal Surgery. absent: Change in Urinary Stream, Difficulty Urinating, Dysuria, Hematuria, Pyuria, Urinary Incontinence, Voiding Freq/Small Amts - Musculoskeletal Musculoskeletal: Back Pain (Right flank). absent: Neck Pain, Numbness, Tingling - Integumentary Integumentary: absent: New Lesions, Rash - Neurological Neurological: absent: Headaches, Weakness - Psychiatric Psychiatric: absent: Change in Appetite - Endocrine Endocrine: Fatigue Past Patient History - Infectious Disease Hx of Infectious Diseases: None - Tetanus Immunizations Tetanus Immunization: Unknown - Past Social History Smoking Status: Never Smoked - CARDIAC Hx Cardiac Disorders: No - PULMONARY Hx Respiratory Disorders: No - NEUROLOGICAL Hx Neurological Disorder: No - HEENT Hx HEENT Problems: Yes Hx Deafness: Yes Other/Comment: HEARING IMPAIRED - RENAL Hx Chronic Kidney Disease: Yes Hx Kidney Stones: Yes - ENDOCRINE/METABOLIC Hx Endocrine Disorders: Yes Other/Comment: INDUCED DM - HEMATOLOGICAL/ONCOLOGICAL Hx Blood Disorders: No - INTEGUMENTARY Hx Dermatological Problems: No - MUSCULOSKELETAL/RHEUMATOLOGICAL Hx Musculoskeletal Disorders: No - GASTROINTESTINAL Hx Gastrointestinal Disorders: No - GENITOURINARY/GYNECOLOGICAL Hx Genitourinary Disorders: No - PSYCHIATRIC Hx Psychophysiologic Disorder: No Hx Substance Use: No - SURGICAL HISTORY Other/Comment: KIDNEY STONE REMOVAL - ANESTHESIA Hx Anesthesia Reactions: No Meds Allergies/Adverse Reactions: Allergies Allergy/AdvReac Type Severity Reaction Status Date / Time No Known Allergies Allergy Verified 07/08/17 10:11 Physical Exam - Constitutional Appears: Non-toxic, No Acute Distress - Head Exam Head Exam: ATRAUMATIC, NORMAL INSPECTION, NORMOCEPHALIC - Eye Exam Eye Exam: EOMI, Normal appearance - ENT Exam ENT Exam: Mucous Membranes Moist, Normal Exam - Neck Exam Neck exam: Positive for: Full Rom, Normal Inspection - Respiratory Exam Respiratory Exam: Clear to Auscultation Bilateral, NORMAL BREATHING PATTERN. absent: Rales, Rhonchi, Wheezes, Respiratory Distress - Cardiovascular Exam Cardiovascular Exam: REGULAR RHYTHM, +S1, +S2 - GI/Abdominal Exam GI & Abdominal Exam: Normal Bowel Sounds, Soft. absent: Distended, Firm, Guarding, Tenderness - Extremities Exam Extremities exam: Positive for: normal inspection. Negative for: pedal edema - Back Exam Back exam: CVA tenderness (R) (minimal), NORMAL INSPECTION. absent: CVA tenderness (L) - Neurological Exam Neurological exam: Alert, CN II-XII Intact, Oriented x3 - Psychiatric Exam Psychiatric exam: Normal Affect, Normal Mood - Skin Skin Exam: Dry, Intact, Normal Color, Warm Results - Vital Signs Recent Vital Signs: Last Vital Signs Temp 98.7 F 07/08/17 10:11 Pulse 91 H 07/08/17 14:09 Resp 18 07/08/17 14:09 BP 126/64 07/08/17 14:09 Pulse Ox 98 07/08/17 14:09 - Labs Result Diagrams: 07/08/17 12:13 07/08/17 12:13 Labs: Laboratory Results - last 24 hr 07/08/17 07/08/17 07/08/17 12:13 12:13 12:13 WBC 19.4 H D RBC 5.15 Hgb 14.0 Hct 42.3 MCV 82.1 MCH 27.2 MCHC 33.1 RDW 14.2 Plt Count 226 MPV 11.0 Gran % 92.2 H Lymph % (Auto) 3.7 L [place] % (Auto) 3.9 Eos % (Auto) 0.1 L Baso % (Auto) 0.1 Gran # 17.94 H Lymph # (Auto) 0.7 L [place] # (Auto) 0.8 H Eos # (Auto) 0.0 Baso # (Auto) 0.02 Neutrophils % (Manual) 91 H Lymphocytes % (Manual) 5 L Monocytes % (Manual) 4 Platelet Evaluation Normal Anisocytosis (manual) Slight Microcytosis (manual) Slight PT 12.7 H INR 1.10 H APTT 19.7 L Sodium 142 Potassium 3.7 Chloride 103 Carbon Dioxide 25 Anion Gap 17 BUN 14 Creatinine 0.8 Est GFR ( Amer) > 60 Est GFR (Non-Af Amer) > 60 Random Glucose 187 H Calcium 9.1 Magnesium 1.8 Total Bilirubin 0.6 AST 31 ALT 43 Alkaline Phosphatase 107 Total Protein 7.2 Albumin 4.1 Globulin 3.1 Albumin/Globulin Ratio 1.3 Lipase 16 L Urine Color Urine Appearance Urine pH Ur Specific [place] Urine Protein Urine Glucose (UA) Urine Ketones Urine Blood Urine Nitrate Urine Bilirubin Urine Urobilinogen Ur Leukocyte Esterase Urine RBC Urine WBC Ur Epithelial Cells Amorphous Sediment Urine Bacteria Urine Other 07/08/17 12:13 WBC RBC Hgb Hct MCV MCH MCHC RDW Plt Count MPV Gran % Lymph % (Auto) [place] % (Auto) Eos % (Auto) Baso % (Auto) Gran # Lymph # (Auto) [place] # (Auto) Eos # (Auto) Baso # (Auto) Neutrophils % (Manual) Lymphocytes % (Manual) Monocytes % (Manual) Platelet Evaluation Anisocytosis (manual) Microcytosis (manual) PT INR APTT Sodium Potassium Chloride Carbon Dioxide Anion Gap BUN Creatinine Est GFR ( Amer) Est GFR (Non-Af Amer) Random Glucose Calcium Magnesium Total Bilirubin AST ALT Alkaline Phosphatase Total Protein Albumin Globulin Albumin/Globulin Ratio Lipase Urine Color Yellow Urine Appearance Clear Urine pH 7.0 Ur Specific [place] 1.020 Urine Protein 30 H Urine Glucose (UA) Negative Urine Ketones Negative Urine Blood Moderate H Urine Nitrate Negative Urine Bilirubin Negative Urine Urobilinogen 1.0 H Ur Leukocyte Esterase Trace H Urine RBC 25 - 30 Urine WBC 5 - 10 Ur Epithelial Cells 6 - 8 Amorphous Sediment Few Urine Bacteria Many Urine Other Uyeast Assessment & Plan - Assessment and Plan (Free Text) Assessment: 36F w/PMH sig for nephrolithiasis admitted for R flank pain due to nephrolithiasis, severe hydronephrosis and pyelonephritis Plan: Pyleonephritis Admit to med surg VS Q4H Activity as tolerated heart healthy diet Rocephin Zofran Urine Cx Morphine NS @ 150 FU AM labs Activity as tolerated urology consulted- plan to stent, possibly tomorrow GI/DVT ppx Pepcid Heparin SCDs Ambulate DW attending Joyce, PGY-1 - Date & Time Date: 07/08/17 Time: 15:11 Decision To Admit - Pt Status Changed To: Hospital Disposition Of: Inpatient Admission - Admit Certification Admit to Inpatient:: After my assessment, the patient will require hospitalization for at least two midnights. This is because of the severity of symptoms shown, intensity of services needed, and/or the medical risk in this patient being treated as an outpatient. - . Bed Request Type: Med/Surg Admitting Physician: Lashanda Zuñiga <Lashanda Zuñiga - Last Filed: 07/08/17 16:30> Results - Vital Signs Recent Vital Signs: Last Vital Signs Temp 98.7 F 07/08/17 10:11 Pulse 91 H 07/08/17 14:09 Resp 18 07/08/17 14:09 BP 126/64 07/08/17 14:09 Pulse Ox 98 07/08/17 14:09 - Labs Result Diagrams: 07/08/17 12:13 07/08/17 12:13 Attending/Attestation - Attestation I have personally seen and examined this patient.: Yes I have fully participated in the care of the patient.: Yes I have reviewed all pertinent clinical information: Yes Notes (Text): 07/08/17 16:19 36 year old female with past medical history of nephrolithiasis who presented with right flank pain, nausea and vomiting. CT abd/pelvis reviewed which showed large stone in the distal right ureter with severe hyponephrosis and hydroureter and perinephric/periureter stranding. She has significant leukocytosis with trace LE in UA secondary to above. Continue with iv fluids, analgesics and antiemetics as needed. Started on iv antibiotics as well. Urology evaluation is requested. Lashanda Zuñiga MD Hospitalist.
[2017-07-08] MEDS: Sodium Chloride 0.9% 1,000 ML IV SCH (16:07)
[2017-07-08] MEDS: cefTRIAXone 1 gm 1 GM/100 ML BAG IVPB SCH (16:07)
[2017-07-08] MEDS ORDERED: Pneumococcal 23-Valent Vaccine IM ONE (21:07)
[2017-07-08 21:08] VITALS: BMI 32.9
--- NOTE | 2017-07-08 22:46 | PCM.URO ---
Urology Progress Note - Objective Lab Studies: Reviewed (cysto stent tomorrow) Intake & Output: Intake & Output 07/08/17 07/08/17 07/09/17 06:59 18:59 06:59 Intake Total 960 Balance 960 Weight 180 lb Intake: Oral 960 Other: Voiding Method Bedside Commode # Voids Urine, Voided 2 # Bowel Movements 0 Vital Signs: Vital Signs - 24 hr 07/08/17 07/08/17 07/08/17 16:54 20:44 21:44 Temperature 98.9 F 98.9 F 102.9 F H Pulse Rate 90 90 Respiratory 18 18 Rate Blood Pressure 130/79 130/79 O2 Sat by Pulse 99 Oximetry 07/08/17 22:33 Temperature 101 F H Pulse Rate 107 H Respiratory 20 Rate Blood Pressure 108/72 O2 Sat by Pulse 97 Oximetry
[2017-07-09] MEDS: Sodium Chloride 0.9% 1,000 ML IV SCH ×2 (05:40→17:31)
[2017-07-09] MEDS: Morphine 4 mg/ml ISec IVP PRN (05:46)
[2017-07-09 07:09] LABS: BASO # 0.01 K/mm3 (0.0-2.0); BASO % 0.1 % (0.0-3.0); EOS % 0.1 % (1.5-5.0); GRAN # 12.11 (1.4-6.5); GRAN % 90.4 % (50.0-68.0); HEMOGLOBIN 12.6 g/dL (12.0-16.0); LYMPH # 0.6 (1.2-3.4); LYMPH % 4.6 % (22.0-35.0); MEAN CELL VOLUME 81.7 fl (80.0-105.0); MEAN CORPUSCULAR HEMOGLOBIN 26.8 pg (25.0-35.0); MEAN CORPUSCULAR HGB CONC 32.7 g/dl (31.0-37.0); MEAN PLATELET VOLUME 10.6 fl (7.0-11.0); MONO # 0.6 (0.1-0.6); MONO % 4.8 % (1.0-6.0); RBC 4.71 10^6/uL (3.5-6.1); RED CELL DISTRIBUTION WIDTH 14.6 % (11.5-14.5); WHITE BLOOD COUNT 13.4 10^3/ul (4.5-11.0)
[2017-07-09 07:54] LABS: BLOOD UREA NITROGEN 12 mg/dL (7-21); GFR AFRICAN-AMERICAN > 60; GFR NON-AFRICAN AMERICAN > 60
[2017-07-09] MEDS ORDERED: Potassium Chloride 20 mEq ER Tab PO STA ×2 (08:11→18:41)
[2017-07-09] MEDS ORDERED: Potassium Chloride 20 mEq ER Tab PO ONE (10:30)
[2017-07-09] MEDS: cefTRIAXone 1 gm 1 GM/100 ML BAG IVPB SCH (10:55)
--- NOTE | 2017-07-09 13:11 | CP.PCM.PN ---
<Mei Cook - Last Filed: 07/09/17 13:09> Subjective - Date & Time of Evaluation Date of Evaluation: 07/09/17 Time of Evaluation: 13:09 - Subjective Subjective: IM progress note for Dr. Zuñiga-Mei Cook, PGY-1 Pt S & E at bedside at 1030 Pt reports improved Right flank pain, no longer with urinary frequency. Had a fever overnight, Tmax 102.9. Denies N & V, other problems. Objective - Vital Signs/Intake and Output Vital Signs (last 24 hours): Temp Pulse Resp BP Pulse Ox 98 F 74 20 103/62 96 07/09/17 06:00 07/09/17 06:00 07/09/17 06:00 07/09/17 06:00 07/09/17 06:00 Intake and Output: 07/09/17 07/09/17 06:59 18:59 Intake Total 960 Balance 960 - Medications Medications: Current Medications Famotidine (Pepcid) 20 mg PO BID [facility] Last Admin: 07/09/17 09:07 Dose: Not Given Heparin Sodium (Porcine) (Heparin) 5,000 units SC Q12H [facility] PRN Reason: Protocol Last Admin: 07/09/17 05:39 Dose: 5,000 units Sodium Chloride (Sodium Chloride 0.9%) 1,000 mls @ 150 mls/hr IV .Q6H40M [facility] Last Admin: 07/09/17 05:40 Dose: 150 mls/hr Ceftriaxone Sodium (Rocephin 1 Gram Ivpb) 1 gm in 100 mls @ 100 mls/hr IVPB DAILY [facility] PRN Reason: Protocol Last Admin: 07/09/17 10:55 Dose: 100 mls/hr Morphine Sulfate (Morphine) 2 mg IVP Q4 PRN PRN Reason: Pain, moderate (4-7) Last Admin: 07/09/17 05:46 Dose: 2 mg Ondansetron HCl (Zofran Inj) 4 mg IVP Q6 PRN PRN Reason: Nausea/Vomiting - Labs Labs: 07/09/17 06:30 07/09/17 06:30 PT 12.7 SECONDS (9.4-12.5) H 07/08/17 12:13 INR 1.10 (0.93-1.08) H 07/08/17 12:13 APTT 19.7 Seconds (25.1-36.5) L 07/08/17 12:13 - Constitutional Appears: Non-toxic, No Acute Distress - Head Exam Head Exam: ATRAUMATIC, NORMAL INSPECTION, NORMOCEPHALIC - Eye Exam Eye Exam: EOMI, Normal appearance - ENT Exam ENT Exam: Mucous Membranes Moist, Normal Exam - Neck Exam Neck Exam: Full ROM, Normal Inspection - Respiratory Exam Respiratory Exam: Clear to Ausculation Bilateral, NORMAL BREATHING PATTERN. absent: Rales, Rhonchi, Wheezes, Respiratory Distress - Cardiovascular Exam Cardiovascular Exam: REGULAR RHYTHM, +S1, +S2 - GI/Abdominal Exam GI & Abdominal Exam: Soft, Hyperactive Bowel Sounds. absent: Distended, Firm, Rigid, Tenderness - Extremities Exam Extremities Exam: Normal Inspection. absent: Pedal Edema - Back Exam Back Exam: CVA tenderness (R) (mild), NORMAL INSPECTION - Neurological Exam Neurological Exam: Alert, Awake, CN II-XII Intact, Oriented x3 - Psychiatric Exam Psychiatric exam: Normal Affect, Normal Mood - Skin Skin Exam: Dry, Intact, Normal Color, Warm Assessment and Plan - Assessment and Plan (Free Text) Assessment: 36F w/PMH sig for nephrolithiasis admitted for R flank pain due to nephrolithiasis, severe hydronephrosis and pyelonephritis- improving Plan: Pyleonephritis Febrile overnight, Tmax 102.9 Leukocytosis 13.4 from 19.4 Urine cx pos for yeast Cont Rocephin Cont Zofran NS @ 150 Activity as tolerated urology foll Fevers Tylenol PRN Monitor Hypokalemia K 2.9 Replaced FU BMP at 2pm Replace PRN GI/DVT ppx Pepcid Heparin SCDs Ambulate Activity as tolerated Heart healthy diet DW attending Joyce, PGY-1 <Lashanda Zuñiga - Last Filed: 07/09/17 17:36> Objective - Vital Signs/Intake and Output Vital Signs (last 24 hours): Temp Pulse Resp BP Pulse Ox 100.5 F H 90 21 111/69 96 07/09/17 15:30 07/09/17 15:30 07/09/17 15:30 07/09/17 15:30 07/09/17 15:30 Intake and Output: 07/09/17 07/09/17 06:59 18:59 Intake Total 960 Balance 960 - Medications Medications: Current Medications Famotidine (Pepcid) 20 mg PO BID [facility] Last Admin: 07/09/17 09:07 Dose: Not Given Heparin Sodium (Porcine) (Heparin) 5,000 units SC Q12H [facility] PRN Reason: Protocol Last Admin: 07/09/17 15:30 Dose: Not Given Sodium Chloride (Sodium Chloride 0.9%) 1,000 mls @ 150 mls/hr IV .Q6H40M [facility] Last Admin: 07/09/17 05:40 Dose: 150 mls/hr Ceftriaxone Sodium (Rocephin 1 Gram Ivpb) 1 gm in 100 mls @ 100 mls/hr IVPB DAILY [facility] PRN Reason: Protocol Last Admin: 07/09/17 10:55 Dose: 100 mls/hr Gentamicin Sulfate 80 mg/ (Sodium Chloride) 102 mls @ 100 mls/hr IVPB Q24H [facility] PRN Reason: Protocol Last Admin: 07/09/17 15:11 Dose: 100 mls/hr Morphine Sulfate (Morphine) 2 mg IVP Q4 PRN PRN Reason: Pain, moderate (4-7) Last Admin: 07/09/17 05:46 Dose: 2 mg Ondansetron HCl (Zofran Inj) 4 mg IVP Q6 PRN PRN Reason: Nausea/Vomiting - Labs Labs: 07/09/17 06:30 07/09/17 06:30 PT 12.7 SECONDS (9.4-12.5) H 07/08/17 12:13 INR 1.10 (0.93-1.08) H 07/08/17 12:13 APTT 19.7 Seconds (25.1-36.5) L 07/08/17 12:13 Attending/Attestation - Attestation I have personally seen and examined this patient.: Yes I have fully participated in the care of the patient.: Yes I have reviewed all pertinent clinical information, including history, physical exam and plan: Yes Notes (Text): 07/09/17 17:34 36 year old female with past medical history of nephrolithiasis who presented with right flank pain, nausea and vomiting. CT abd/pelvis showed large stone in the distal right ureter with severe hyponephrosis and hydroureter and perinephric/periureter stranding. She had fever of 102 overnight, however her symptoms and leukocytosis have improved. She is on iv fluids, antibiotics, analgesics and antiemetics. Urology is following and plan is for OR cystoscopy today. Will replete and repeat potassium for hyperkalemia. Lashanda Zuñiga MD Hospitalist.
[2017-07-09] MEDS ORDERED: Propofol 10 mg/ml Inj (20 ML) ONE (13:20)
[2017-07-09] MEDS ORDERED: Lidocaine 1% Inj (20ml) ONE (13:21)
[2017-07-09] MEDS ORDERED: Iohexol 240 (50 ml) ONE (13:33)
[2017-07-09] MEDS ORDERED: Naloxone 0.4 mg/ml Inj (Adult) ONE (14:30)
[2017-07-09] MEDS ORDERED: HYDROmorphone 0.5 mg/0.5 ml ISec IVP PRN (14:35)
[2017-07-09] MEDS ORDERED: Sodium Chloride 0.9% 1,000 ML IV SCH (14:45)
[2017-07-09] MEDS ORDERED: Gentamicin 80 mg/2mL Inj. ONE (15:05)
[2017-07-09 20:21] LABS: BLOOD UREA NITROGEN 10 mg/dL (7-21); CALCIUM 8.4 mg/dL (8.4-10.5); GFR AFRICAN-AMERICAN > 60; GFR NON-AFRICAN AMERICAN > 60
[2017-07-10 07:00] LABS: BASO # 0.01 K/mm3 (0.0-2.0); BASO % 0.1 % (0.0-3.0); EOS # 0.1 (0.0-0.7); EOS % 1.6 % (1.5-5.0); GRAN # 6.75 (1.4-6.5); GRAN % 75.6 % (50.0-68.0); HEMOGLOBIN 12.4 g/dL (12.0-16.0); LYMPH # 1.1 (1.2-3.4); LYMPH % 11.8 % (22.0-35.0); MEAN CELL VOLUME 81.1 fl (80.0-105.0); MEAN CORPUSCULAR HEMOGLOBIN 26.3 pg (25.0-35.0); MEAN CORPUSCULAR HGB CONC 32.4 g/dl (31.0-37.0); MEAN PLATELET VOLUME 10.7 fl (7.0-11.0); MONO % 10.9 % (1.0-6.0); RBC 4.72 10^6/uL (3.5-6.1); RED CELL DISTRIBUTION WIDTH 14.6 % (11.5-14.5); WHITE BLOOD COUNT 8.9 10^3/ul (4.5-11.0)
[2017-07-10 07:12] LABS: BLOOD UREA NITROGEN 9 mg/dL (7-21); CALCIUM 8.7 mg/dL (8.4-10.5); GFR AFRICAN-AMERICAN > 60; GFR NON-AFRICAN AMERICAN > 60
[2017-07-10] MEDS ORDERED: Potassium Chloride 20 mEq ER Tab PO STA (07:57)
--- NOTE | 2017-07-10 08:01 | RAD ---
PROCEDURE: Intraoperative Fluoroscopy. HISTORY: RETROGRADE PYELOGRAM / STENT INSERTION (RIGHT) FINDINGS: Fluoroscopic assistance was provided for retrograde pyelography and ureteral stent insertion. Please refer to the operative report from AYLIN Hancock DR, MD. 1.8 seconds of fluoroscopy time was utilized with a cumulative radiation dose of 2.98 mGy.
[2017-07-10] MEDS ORDERED: Sodium Chloride 0.9% 100 ML IV SCH (09:00)
[2017-07-10] MEDS: Meropenem IV 1 gm in NS 50 ML IVPB SCH ×3 (09:43→21:45)
[2017-07-10] MEDS ORDERED: Cefepime 1gm in NS 100ml 1 GM/100 ML BAG IVPB SCH (10:00)
[2017-07-10] MEDS ORDERED: Fluconazole IV 200mg/100 ml NS 100 ML IVPB SCH (10:00)
[2017-07-10] MEDS: Micafungin 100 MG in Sodium Chloride 0.9% 100 ML IV SCH (11:44)
[2017-07-10] MEDS: Morphine 4 mg/ml ISec IVP PRN ×2 (11:52→18:00)
--- NOTE | 2017-07-10 13:14 | CP.PCM.PN ---
<Brooke Ferreira - Last Filed: 07/10/17 13:11> Subjective - Date & Time of Evaluation Date of Evaluation: 07/10/17 Time of Evaluation: 13:11 - Subjective Subjective: Brooke Ferreira, PGY1, Progress Note for Dr Zuñiga: Patient seen and examined at bedside. Pt febrile overnight, given tylenol. Denies abdominal/flank pain, cough, cp, sob, urinary symptoms, pyuria, hematuria , vaginal itching, leg swelling. Objective - Vital Signs/Intake and Output Vital Signs (last 24 hours): Temp Pulse Resp BP Pulse Ox 99.9 F H 94 H 20 107/54 L 95 07/10/17 06:00 07/10/17 06:00 07/10/17 06:00 07/10/17 06:00 07/10/17 06:00 Intake and Output: 07/10/17 07/10/17 06:59 18:59 Intake Total 600 Balance 600 - Medications Medications: Current Medications Acetaminophen (Tylenol 325mg Tab) 650 mg PO Q4H PRN PRN Reason: Fever >100.4 F Last Admin: 07/09/17 21:32 Dose: 650 mg Famotidine (Pepcid) 20 mg PO BID [facility] Last Admin: 07/10/17 09:43 Dose: 20 mg Heparin Sodium (Porcine) (Heparin) 5,000 units SC Q12H [facility] PRN Reason: Protocol Last Admin: 07/10/17 05:10 Dose: 5,000 units Gentamicin Sulfate 80 mg/ (Sodium Chloride) 102 mls @ 100 mls/hr IVPB Q24H [facility] PRN Reason: Protocol Last Admin: 07/09/17 15:11 Dose: 100 mls/hr Sodium Chloride (Sodium Chloride 0.9%) 100 mls @ 80 mls/hr IV .Q1H15M [facility] Last Admin: 07/10/17 09:42 Dose: 80 mls/hr Meropenem (Merrem Iv 1 Gm Premix) 50 mls @ 100 mls/hr IVPB Q8 [facility] PRN Reason: Protocol Last Admin: 07/10/17 09:43 Dose: 100 mls/hr Micafungin Sodium 100 mg/ (Sodium Chloride) 100 mls @ 100 mls/hr IV DAILY [facility] PRN Reason: Protocol Stop: 07/24/17 10:01 Last Admin: 07/10/17 11:44 Dose: 100 mls/hr Morphine Sulfate (Morphine) 2 mg IVP Q4 PRN PRN Reason: Pain, moderate (4-7) Last Admin: 07/10/17 11:52 Dose: 2 mg Ondansetron HCl (Zofran Inj) 4 mg IVP Q6 PRN PRN Reason: Nausea/Vomiting - Labs Labs: 07/10/17 06:15 07/10/17 06:15 PT 12.7 SECONDS (9.4-12.5) H 07/08/17 12:13 INR 1.10 (0.93-1.08) H 07/08/17 12:13 APTT 19.7 Seconds (25.1-36.5) L 07/08/17 12:13 - Constitutional Appears: Non-toxic, No Acute Distress - Head Exam Head Exam: ATRAUMATIC, NORMOCEPHALIC - Eye Exam Eye Exam: EOMI, PERRL. absent: Conjunctival injection, Nystagmus, Scleral icterus Pupil Exam: NORMAL ACCOMODATION, PERRL. absent: Fixed, Irregular, Unequal - ENT Exam ENT Exam: Mucous Membranes Moist - Neck Exam Neck Exam: Full ROM - Respiratory Exam Respiratory Exam: Clear to Ausculation Bilateral, NORMAL BREATHING PATTERN. absent: Accessory Muscle Use, Rhonchi, Wheezes, Respiratory Distress, Stridor - Cardiovascular Exam Cardiovascular Exam: RRR, +S1, +S2. absent: Murmur - GI/Abdominal Exam GI & Abdominal Exam: Soft, Normal Bowel Sounds. absent: Distended, Firm, Guarding, Rigid, Tenderness, Mass, Organomegaly, Rebound - Extremities Exam Extremities Exam: Normal Inspection, Pedal Edema (trace) - Back Exam Back Exam: CVA tenderness (R), NORMAL INSPECTION. absent: CVA tenderness (L) - Neurological Exam Neurological Exam: Alert, Awake, Oriented x3 - Psychiatric Exam Psychiatric exam: Normal Affect, Normal Mood - Skin Skin Exam: Dry, Normal Color, Warm Assessment and Plan - Assessment and Plan (Free Text) Assessment: 36F w/ PMH sig for nephrolithiasis s/p lithotripsy and 2 stents, right sided hearing loss, admitted for R flank pain due to nephrolithiasis, severe hydronephrosis and pyelonephritis, s/p right ureteral stent placement, found to have fungemia and yeast in urine. Started on Micafungin as per ID. Spoke with Dr Bain, wants to defer lithotripsy until fungemia resolves: Fungemia: - Blood culture shows yeast. Urine culture shows yeast, <10,000 CFU/ml - Micafungin - ID on board. appreciate recs - HIV, RPR, hemoglobin A1c Pyleonephritis: - Febrile overnight - Leukocytosis resolved today. - ID on board, appreciate recs. - Blood and urine culture positive for yeast - F/u repeat blood culture - C/w Merrem, Gentamicin - Activity as tolerated - Urology on board. S/p right ureteral stent yesterday. Plan for lithotripsy once fungemia is resolved. Hypokalemia - repleted, daily bmp GI/DVT ppx - Pepcid - Heparin - SCDs Heart healthy diet Case seen and discussed with Dr Zuñiga. Brooke Ferreira, PGY1 <Lashanda Zuñiga - Last Filed: 07/10/17 14:07> Objective - Vital Signs/Intake and Output Vital Signs (last 24 hours): Temp Pulse Resp BP Pulse Ox 99.9 F H 94 H 20 107/54 L 95 07/10/17 06:00 07/10/17 06:00 07/10/17 06:00 07/10/17 06:00 07/10/17 06:00 Intake and Output: 07/10/17 07/10/17 06:59 18:59 Intake Total 600 Balance 600 - Medications Medications: Current Medications Acetaminophen (Tylenol 325mg Tab) 650 mg PO Q4H PRN PRN Reason: Fever >100.4 F Last Admin: 07/09/17 21:32 Dose: 650 mg Famotidine (Pepcid) 20 mg PO BID [facility] Last Admin: 07/10/17 09:43 Dose: 20 mg Heparin Sodium (Porcine) (Heparin) 5,000 units SC Q12H [facility] PRN Reason: Protocol Last Admin: 07/10/17 05:10 Dose: 5,000 units Gentamicin Sulfate 80 mg/ (Sodium Chloride) 102 mls @ 100 mls/hr IVPB Q24H [facility] PRN Reason: Protocol Last Admin: 07/09/17 15:11 Dose: 100 mls/hr Sodium Chloride (Sodium Chloride 0.9%) 100 mls @ 80 mls/hr IV .Q1H15M [facility] Last Admin: 07/10/17 09:42 Dose: 80 mls/hr Meropenem (Merrem Iv 1 Gm Premix) 50 mls @ 100 mls/hr IVPB Q8 [facility] PRN Reason: Protocol Last Admin: 07/10/17 09:43 Dose: 100 mls/hr Micafungin Sodium 100 mg/ (Sodium Chloride) 100 mls @ 100 mls/hr IV DAILY [facility] PRN Reason: Protocol Stop: 07/24/17 10:01 Last Admin: 07/10/17 11:44 Dose: 100 mls/hr Morphine Sulfate (Morphine) 2 mg IVP Q4 PRN PRN Reason: Pain, moderate (4-7) Last Admin: 07/10/17 11:52 Dose: 2 mg Ondansetron HCl (Zofran Inj) 4 mg IVP Q6 PRN PRN Reason: Nausea/Vomiting - Labs Labs: 07/10/17 06:15 07/10/17 06:15 PT 12.7 SECONDS (9.4-12.5) H 07/08/17 12:13 INR 1.10 (0.93-1.08) H 07/08/17 12:13 APTT 19.7 Seconds (25.1-36.5) L 07/08/17 12:13 Attending/Attestation - Attestation I have personally seen and examined this patient.: Yes I have fully participated in the care of the patient.: Yes I have reviewed all pertinent clinical information, including history, physical exam and plan: Yes Notes (Text): 07/10/17 14:04 36 year old female with past medical history of nephrolithiasis who presented with right flank pain, nausea and vomiting. CT abd/pelvis showed large stone in the distal right ureter with severe hyponephrosis and hydroureter and perinephric/periureter stranding. Urology evaluation was appreciated and patient is s/p cystoscopy with right ureteral stent placement. Symptoms and leukocytosis have improved however patient continues to have fever overnight. UCx and BCx has grown yeast species and patient has been started on micafungin and meropenem. ID evaluation is requested. Will replete and repeat potassium for hyperkalemia. Plan for possible lithotripsy once fever/fungemia clears up as per urology. Lashanda Zuñiga MD Hospitalist.
--- NOTE | 2017-07-10 14:10 | CP.PCM.CON ---
History of Present Illness - History of Present Illness History of Present Illness: 36 year old female with PMH of nephrolithiasis, obesity with BMI 34 came in intially to [facility] [place] for right flank pain and was found to have right sided nephrolithiasis. The patient was also having fever at the time of admission with some nausea and was found to have hydronephrosis and hydroureter. Ureteral stenting was done and lithotripsy but the patient continued to have fevers. She has been on Gentamicin since the procedure. Urine cx and blood cx are now showing yeast and Infectious Diseases consult is requested to further evaluate and manage. She is currently having less right flank pain, no abdominal pain, no vomiting, no headache or dizziness, no chest pain, no SOB, no cough or colds , no diarrhea, no dysuria, no hematuria. Review of Systems - Review of Systems All systems: reviewed and no additional remarkable complaints except (as per HPI ) Past Patient History - Infectious Disease Hx of Infectious Diseases: None - Tetanus Immunizations Tetanus Immunization: Unknown - Past Social History Smoking Status: Never Smoked - CARDIAC Hx Cardiac Disorders: No - PULMONARY Hx Respiratory Disorders: No - NEUROLOGICAL Hx Neurological Disorder: No - HEENT Hx HEENT Problems: Yes Hx Deafness: Yes Other/Comment: HEARING IMPAIRED-hearing aide - RENAL Hx Chronic Kidney Disease: Yes (stents x 2) Hx Kidney Stones: Yes (7x12 mm stone. 18H/O multiple lithotrypsies) - ENDOCRINE/METABOLIC Hx Endocrine Disorders: Yes Other/Comment: INDUCED DM - HEMATOLOGICAL/ONCOLOGICAL Hx Blood Transfusions: No Hx Blood Transfusion Reaction: No - INTEGUMENTARY Hx Dermatological Problems: Yes Other/Comment: 07-08-17 bilateral le edema +2.Bilateral leg varicosities - MUSCULOSKELETAL/RHEUMATOLOGICAL Hx Musculoskeletal Disorders: No Hx Falls: No - GASTROINTESTINAL Hx Gastrointestinal Disorders: Yes - GENITOURINARY/GYNECOLOGICAL Hx Genitourinary Disorders: Yes (c/sx 1) Hx Urinary Tract Infection: Yes - PSYCHIATRIC Hx Psychophysiologic Disorder: No Hx Substance Use: No - SURGICAL HISTORY Hx Surgeries: Yes (c/s x 1) - ANESTHESIA Hx Anesthesia Reactions: No Hx Malignant Hyperthermia: No Meds Allergies/Adverse Reactions: Allergies Allergy/AdvReac Type Severity Reaction Status Date / Time No Known Allergies Allergy Verified 07/08/17 17:14 - Medications Medications: Current Medications Acetaminophen (Tylenol 325mg Tab) 650 mg PO Q4H PRN PRN Reason: Fever >100.4 F Last Admin: 07/09/17 21:32 Dose: 650 mg Famotidine (Pepcid) 20 mg PO BID [facility] Last Admin: 07/10/17 09:43 Dose: 20 mg Heparin Sodium (Porcine) (Heparin) 5,000 units SC Q12H [facility] PRN Reason: Protocol Last Admin: 07/10/17 05:10 Dose: 5,000 units Gentamicin Sulfate 80 mg/ (Sodium Chloride) 102 mls @ 100 mls/hr IVPB Q24H [facility] PRN Reason: Protocol Last Admin: 07/09/17 15:11 Dose: 100 mls/hr Sodium Chloride (Sodium Chloride 0.9%) 100 mls @ 80 mls/hr IV .Q1H15M [facility] Last Admin: 07/10/17 09:42 Dose: 80 mls/hr Meropenem (Merrem Iv 1 Gm Premix) 50 mls @ 100 mls/hr IVPB Q8 [facility] PRN Reason: Protocol Last Admin: 07/10/17 09:43 Dose: 100 mls/hr Morphine Sulfate (Morphine) 2 mg IVP Q4 PRN PRN Reason: Pain, moderate (4-7) Last Admin: 07/09/17 05:46 Dose: 2 mg Ondansetron HCl (Zofran Inj) 4 mg IVP Q6 PRN PRN Reason: Nausea/Vomiting Physical Exam - Constitutional Appears: Non-toxic - Head Exam Head Exam: NORMAL INSPECTION - ENT Exam ENT Exam: Mucous Membranes Moist - Neck Exam Neck exam: Negative for: Meningismus - Respiratory Exam Respiratory Exam: absent: Rales, Rhonchi - Cardiovascular Exam Cardiovascular Exam: +S1, +S2 - GI/Abdominal Exam GI & Abdominal Exam: Soft. absent: Tenderness Results - Vital Signs Recent Vital Signs: Last Vital Signs Temp 99.9 F H 07/10/17 06:00 Pulse 94 H 07/10/17 06:00 Resp 20 07/10/17 06:00 BP 107/54 L 07/10/17 06:00 Pulse Ox 95 07/10/17 06:00 - Labs Result Diagrams: 07/10/17 06:15 07/10/17 06:15 Labs: Laboratory Results - last 24 hr 07/09/17 07/09/17 07/09/17 16:09 19:59 22:15 WBC RBC Hgb Hct MCV MCH MCHC RDW Plt Count MPV Gran % Lymph % (Auto) Tyrrell % (Auto) Eos % (Auto) Baso % (Auto) Gran # Lymph # (Auto) Tyrrell # (Auto) Eos # (Auto) Baso # (Auto) Sodium 138 Potassium 3.7 Chloride 103 Carbon Dioxide 23 Anion Gap 15 BUN 10 Creatinine 0.7 Est GFR ( Amer) > 60 Est GFR (Non-Af Amer) > 60 POC Glucose (mg/dL) 75 197 H Random Glucose 165 H Calcium 8.4 07/10/17 07/10/17 07/10/17 06:15 06:15 07:11 WBC 8.9 D RBC 4.72 Hgb 12.4 Hct 38.3 MCV 81.1 MCH 26.3 MCHC 32.4 RDW 14.6 H Plt Count 188 MPV 10.7 Gran % 75.6 H Lymph % (Auto) 11.8 L Tyrrell % (Auto) 10.9 H Eos % (Auto) 1.6 Baso % (Auto) 0.1 Gran # 6.75 H Lymph # (Auto) 1.1 L Tyrrell # (Auto) 1.0 H Eos # (Auto) 0.1 Baso # (Auto) 0.01 Sodium 141 Potassium 3.2 L Chloride 105 Carbon Dioxide 25 Anion Gap 14 BUN 9 Creatinine 0.7 Est GFR ( Amer) > 60 Est GFR (Non-Af Amer) > 60 POC Glucose (mg/dL) 143 H Random Glucose 185 H Calcium 8.7 Assessment & Plan - Assessment and Plan (Free Text) Plan: Assessment Sepsis due to fungemia due to right sided pyelonephritis with hydroureter, hydronephrosis with nephrolithiasis S/P ureteral stent placement nephrolithiasis obesity with BMI 34 Plan Started Mycamine and Merrem pending identification and sensitivities of the yeast in the blood and in the urine - will repeat blood and urine cx tomorrow will trend fever curve and monitor clinical response
--- NOTE | 2017-07-10 16:14 | PN ---
DATE: 07/10/2017 Please see the previously dictated consult note from 07/08/2017 and operative note from 07/09/2017. The patient had a fever of 102.8 overnight. The patient is status post a cysto stent that was done in an uncomplicated fashion, but the patient already had basically impending sepsis. From hydronephrosis and infected stone. At the time of the procedure, it was uncomplicated, we placed stent without difficulty, suspected. Physical exam is otherwise unremarkable. DIAGNOSES: Urosepsis, urolithiasis, stone disease, hydronephrosis, hematuria, flank pain. The plan is as follows: We are going to recommend to continue antibiotics. Decision about inpatient versus outpatient to be decided. From Urology standpoint, treated with antibiotics, we are going to recommend treatment for the stone. Initially, we will try with shockwave lithotripsy and then, subsequently the patient. Mihir Bain MD
[2017-07-11] MEDS: Meropenem IV 1 gm in NS 50 ML IVPB SCH ×3 (06:10→22:52)
--- NOTE | 2017-07-11 07:25 | CON ---
DATE: 07/08/2017 UROLOGY CONSULTATION REASON FOR CONSULTATION: Renal colic. HISTORY OF PRESENT ILLNESS: A very pleasant lady who I know well. She has history of stone. She has only one ESWL previously. She has not had a stent in the past and does not want this. We discussed the options, see below. She did have a renal colic. She actually has a low grade fever. She does not appear septic or toxic right now. SOCIAL HISTORY: She lives with a . She is hearing impaired. REVIEW OF SYSTEMS: As listed above, noncontributory. PHYSICAL EXAMINATION GENERAL: Well-nourished female. She is currently resting comfortable. VITAL SIGNS: Vital signs are noted. Low grade fever is noted. BACK: No real CVA tenderness noted at this point. ABDOMEN: Relatively soft. PELVIC: Deferred until cystoscopy. LABORATORY DATA: See the chart. White count noted. BUN and creatinine noted. Calcium noted. The CT scan is reviewed. There is actually a very gigantic stone in her lower ureter, probably more than a centimeter in size. I extracted 1.2 cm in size. DIAGNOSES: 1. Severe renal colic. 2. Hydronephrosis. 3. Hematuria. 4. Impending sepsis. We discussed the options . At this point, we discussed the options. We are going to plan for the following; cysto, retrograde and stent and then followed by ESWL. I am very worried as she has sepsis. I explained to the patient that although her wish is that to see if we can do shockwave lithotripsy outside the body but with the fever, the obstruction, and the growing size of the stone better treatment is to bring the patient to the operating for the stenting, decompressive system treated with antibiotics and then further plan for followup. The plan as follows; In a.m., we are going to bring her into the OR. In the meanwhile, we will start her on antibiotics and then further plans will follow. Thank you for the urology consultation. Mihir Bain MD
[2017-07-11 07:26] LABS: BASO # 0.02 K/mm3 (0.0-2.0); BASO % 0.3 % (0.0-3.0); EOS # 0.3 (0.0-0.7); EOS % 3.7 % (1.5-5.0); GRAN # 3.91 (1.4-6.5); GRAN % 58.2 % (50.0-68.0); HEMOGLOBIN 12.2 g/dL (12.0-16.0); LYMPH # 1.7 (1.2-3.4); LYMPH % 24.9 % (22.0-35.0); MEAN CELL VOLUME 81.4 fl (80.0-105.0); MEAN CORPUSCULAR HEMOGLOBIN 26.1 pg (25.0-35.0); MEAN CORPUSCULAR HGB CONC 32.1 g/dl (31.0-37.0); MONO # 0.9 (0.1-0.6); MONO % 12.9 % (1.0-6.0); RBC 4.67 10^6/uL (3.5-6.1); RED CELL DISTRIBUTION WIDTH 14.6 % (11.5-14.5); WHITE BLOOD COUNT 6.7 10^3/ul (4.5-11.0)
[2017-07-11 07:41] LABS: BLOOD UREA NITROGEN 11 mg/dL (7-21); CALCIUM 8.9 mg/dL (8.4-10.5); GFR AFRICAN-AMERICAN > 60; GFR NON-AFRICAN AMERICAN > 60
[2017-07-11] MEDS ORDERED: Potassium Chloride 20 mEq ER Tab PO ONE (07:51)
--- NOTE | 2017-07-11 08:24 | OP ---
PROCEDURE DATE: 07/09/2017 PREOPERATIVE DIAGNOSES: hydronephrosis . POSTOPERATIVE DIAGNOSES: hydronephrosis and very impacted distal lower third ureteral stone. PROCEDURE: Exam under anesthesia, cystoscopy, a right retrograde pyelogram and insertion of right double-J stent. BLOOD LOSS: Less than mL. FINDINGS: obstructing stone. COMPLICATIONS: There were no complications. INDICATIONS: See history and physical and consultation. The patient is agreeable for procedure. DESCRIPTION OF PROCEDURE: After obtaining informed consent, the patient was placed on the table. Routine monitor was placed. Time-out was called to confirm the patient and positioning. Antibiotic prophylaxis was used. We . Ureteral orifices identified. A retrograde pyelogram was performed stone. The procedure continued. Retrograde pyelogram was performed. noted, hydronephrosis noted. It is almost difficult to get the wire passed where I able to pass the wire stone. Once we did this, we did the usual manipulation confirmed our positioning and we have a wire and placed double-J stent with a 4.8-Serbian double J-stent. The patient tolerated the procedure without complications normal external genitalia. No pelvic or rectal . ADDENDUM: I am concerned for sepsis. We will keep the patient in the hospital. I actually added gentamicin . Mihir Bain MD
--- NOTE | 2017-07-11 08:28 | PCM.URO ---
Urology Progress Note - Objective Lab Studies: Reviewed (gu dx: sepsis , pt is now s/p stent insertion gu plans : id work up and treatment gu plans are out pt eswl when ID clears pt thanks also see dictated notes yvonne [phone]) Lab Results Last 24 Hours: Laboratory Results - last 24 hr 07/10/17 07/10/17 07/10/17 11:00 13:00 13:00 WBC RBC Hgb Hct MCV MCH MCHC RDW Plt Count MPV Gran % Lymph % (Auto) Swisher % (Auto) Eos % (Auto) Baso % (Auto) Gran # Lymph # (Auto) Swisher # (Auto) Eos # (Auto) Baso # (Auto) Sodium Potassium Chloride Carbon Dioxide Anion Gap BUN Creatinine Est GFR ( Amer) Est GFR (Non-Af Amer) POC Glucose (mg/dL) 146 H Random Glucose Hemoglobin A1c 7.7 H Calcium RPR Nonreactive 07/10/17 07/10/17 07/11/17 16:22 22:08 07:00 WBC 6.7 D RBC 4.67 Hgb 12.2 Hct 38.0 MCV 81.4 MCH 26.1 MCHC 32.1 RDW 14.6 H Plt Count 229 MPV 11.0 Gran % 58.2 Lymph % (Auto) 24.9 Swisher % (Auto) 12.9 H Eos % (Auto) 3.7 Baso % (Auto) 0.3 Gran # 3.91 Lymph # (Auto) 1.7 Swisher # (Auto) 0.9 H Eos # (Auto) 0.3 Baso # (Auto) 0.02 Sodium Potassium Chloride Carbon Dioxide Anion Gap BUN Creatinine Est GFR ( Amer) Est GFR (Non-Af Amer) POC Glucose (mg/dL) 136 H 138 H Random Glucose Hemoglobin A1c Calcium RPR 07/11/17 07/11/17 07:00 07:04 WBC RBC Hgb Hct MCV MCH MCHC RDW Plt Count MPV Gran % Lymph % (Auto) Swisher % (Auto) Eos % (Auto) Baso % (Auto) Gran # Lymph # (Auto) Swisher # (Auto) Eos # (Auto) Baso # (Auto) Sodium 144 Potassium 3.3 L Chloride 107 Carbon Dioxide 24 Anion Gap 16 BUN 11 Creatinine 0.6 L Est GFR ( Amer) > 60 Est GFR (Non-Af Amer) > 60 POC Glucose (mg/dL) 113 H Random Glucose 118 H Hemoglobin A1c Calcium 8.9 RPR Intake & Output: Intake & Output 07/10/17 07/11/17 07/11/17 18:59 06:59 18:59 Intake Total 1320 480 720 Output Total 1 Balance 1319 480 720 Intake: Oral 1320 480 720 Output: Urine 1 Urine, Voided 1 Other: # Voids Urine, Voided 3 4 6 # Bowel Movements 0 1 Vital Signs: Vital Signs - 24 hr 07/10/17 07/11/17 14:00 06:00 Temperature 99.4 F 99.6 F Pulse Rate 90 67 Respiratory 20 18 Rate Blood Pressure 111/65 184/62 H O2 Sat by Pulse 97 98 Oximetry
[2017-07-11] MEDS: Micafungin 100 MG in Sodium Chloride 0.9% 100 ML IV SCH (10:17)
--- NOTE | 2017-07-11 12:52 | CP.PCM.PN ---
Subjective - Date & Time of Evaluation Date of Evaluation: 07/11/17 Time of Evaluation: 11:00 - Subjective Subjective: Patient is feeling better, no more fever or chills, no nausea or vomiting, no diarrhea, no nausea, no more right sided flank pain or abdominal pain. Objective - Vital Signs/Intake and Output Vital Signs (last 24 hours): Temp Pulse Resp BP Pulse Ox 99.6 F 67 18 184/62 H 98 07/11/17 06:00 07/11/17 06:00 07/11/17 06:00 07/11/17 06:00 07/11/17 06:00 Intake and Output: 07/11/17 07/11/17 06:59 18:59 Intake Total 480 720 Balance 480 720 - Medications Medications: Current Medications Acetaminophen (Tylenol 325mg Tab) 650 mg PO Q4H PRN PRN Reason: Fever >100.4 F Last Admin: 07/09/17 21:32 Dose: 650 mg Famotidine (Pepcid) 20 mg PO BID [facility] Last Admin: 07/10/17 17:53 Dose: 20 mg Heparin Sodium (Porcine) (Heparin) 5,000 units SC Q12H [facility] PRN Reason: Protocol Last Admin: 07/11/17 06:10 Dose: 5,000 units Sodium Chloride (Sodium Chloride 0.9%) 100 mls @ 80 mls/hr IV .Q1H15M [facility] Last Admin: 07/10/17 09:42 Dose: 80 mls/hr Meropenem (Merrem Iv 1 Gm Premix) 50 mls @ 100 mls/hr IVPB Q8 [facility] PRN Reason: Protocol Last Admin: 07/11/17 06:10 Dose: 100 mls/hr Micafungin Sodium 100 mg/ (Sodium Chloride) 100 mls @ 100 mls/hr IV DAILY [facility] PRN Reason: Protocol Stop: 07/24/17 10:01 Last Admin: 07/10/17 11:44 Dose: 100 mls/hr Morphine Sulfate (Morphine) 2 mg IVP Q4 PRN PRN Reason: Pain, moderate (4-7) Last Admin: 07/10/17 18:00 Dose: 2 mg Ondansetron HCl (Zofran Inj) 4 mg IVP Q6 PRN PRN Reason: Nausea/Vomiting - Labs Labs: 07/11/17 07:00 07/11/17 07:00 PT 12.7 SECONDS (9.4-12.5) H 07/08/17 12:13 INR 1.10 (0.93-1.08) H 07/08/17 12:13 APTT 19.7 Seconds (25.1-36.5) L 07/08/17 12:13 - Constitutional Appears: Non-toxic - Head Exam Head Exam: NORMAL INSPECTION - Neck Exam Neck Exam: absent: Meningismus - Respiratory Exam Respiratory Exam: absent: Rales, Rhonchi - Cardiovascular Exam Cardiovascular Exam: +S1, +S2 - GI/Abdominal Exam GI & Abdominal Exam: Soft. absent: Tenderness - Back Exam Back Exam: absent: CVA tenderness (R) Assessment and Plan - Assessment and Plan (Free Text) Plan: Assessment Sepsis due to fungemia due to right sided pyelonephritis with hydroureter, hydronephrosis with nephrolithiasis S/P ureteral stent placement nephrolithiasis, slowly improving obesity with BMI 34 Plan continue Mycamine and Merrem pending identification and sensitivities of the yeast in the blood and in the urine, and will repeat blood and urine cx today; follow up 2D echo results - patient may need up to 4 weeks of antifungal therapy will continue to trend fever curve and monitor clinical response
--- NOTE | 2017-07-11 14:12 | CP.PCM.PN ---
<Mei Cook - Last Filed: 07/11/17 14:10> Subjective - Date & Time of Evaluation Date of Evaluation: 07/11/17 Time of Evaluation: 14:10 - Subjective Subjective: IM progress note for Dr. Zuñiga-Mei Cook, PGY-1 Pt S & E at bedside at 0730 Pt reports sleeping well overnight. Tolerating diet. urinating at lot- asking for IVF to be d/c'd. Denies N & V, F & C, R flank pain or other complaints. Objective - Vital Signs/Intake and Output Vital Signs (last 24 hours): Temp Pulse Resp BP Pulse Ox 99.6 F 67 18 184/62 H 98 07/11/17 06:00 07/11/17 06:00 07/11/17 06:00 07/11/17 06:00 07/11/17 06:00 Intake and Output: 07/11/17 07/11/17 06:59 18:59 Intake Total 480 1260 Balance 480 1260 - Medications Medications: Current Medications Acetaminophen (Tylenol 325mg Tab) 650 mg PO Q4H PRN PRN Reason: Fever >100.4 F Last Admin: 07/09/17 21:32 Dose: 650 mg Famotidine (Pepcid) 20 mg PO BID [facility] Last Admin: 07/11/17 10:17 Dose: 20 mg Heparin Sodium (Porcine) (Heparin) 5,000 units SC Q12H [facility] PRN Reason: Protocol Last Admin: 07/11/17 06:10 Dose: 5,000 units Meropenem (Merrem Iv 1 Gm Premix) 50 mls @ 100 mls/hr IVPB Q8 [facility] PRN Reason: Protocol Last Admin: 07/11/17 06:10 Dose: 100 mls/hr Micafungin Sodium 100 mg/ (Sodium Chloride) 100 mls @ 100 mls/hr IV DAILY [facility] PRN Reason: Protocol Stop: 07/24/17 10:01 Last Admin: 07/11/17 10:17 Dose: 100 mls/hr Ondansetron HCl (Zofran Inj) 4 mg IVP Q6 PRN PRN Reason: Nausea/Vomiting - Labs Labs: 07/11/17 07:00 07/11/17 07:00 PT 12.7 SECONDS (9.4-12.5) H 07/08/17 12:13 INR 1.10 (0.93-1.08) H 07/08/17 12:13 APTT 19.7 Seconds (25.1-36.5) L 07/08/17 12:13 - Constitutional Appears: Non-toxic, No Acute Distress - Head Exam Head Exam: ATRAUMATIC, NORMAL INSPECTION, NORMOCEPHALIC - Eye Exam Eye Exam: EOMI, Normal appearance - ENT Exam ENT Exam: Mucous Membranes Moist, Normal Exam - Neck Exam Neck Exam: Full ROM, Normal Inspection - Respiratory Exam Respiratory Exam: Clear to Ausculation Bilateral, NORMAL BREATHING PATTERN - Cardiovascular Exam Cardiovascular Exam: REGULAR RHYTHM, +S1, +S2 - GI/Abdominal Exam GI & Abdominal Exam: Soft, Normal Bowel Sounds. absent: Tenderness - Extremities Exam Extremities Exam: Normal Inspection. absent: Pedal Edema - Back Exam Back Exam: NORMAL INSPECTION. absent: CVA tenderness (L), CVA tenderness (R) - Neurological Exam Neurological Exam: Alert, Awake, Oriented x3 - Psychiatric Exam Psychiatric exam: Normal Affect, Normal Mood - Skin Skin Exam: Dry, Intact, Normal Color, Warm Assessment and Plan - Assessment and Plan (Free Text) Assessment: 36F w/PMH sig for nephrolithiasis s/p lithotripsy & stents x 2, admitted for R flank 2/2 nephrolithiasis, severe hydronephrosis, pyelonephritis s/p R ureteral stent placement now with fungemia and yeast in urine. Plan: Fungemia Blood cxr pos for yeast Repeat Blood cxr neg x 24H HIV neg RPR neg A1c 7.7 Cont Micafungin FU Echo results ID following- cont Mycamine, Merrem, FU sensitivies for blood & urine Pyleonephritis Afebrile x 24H No leukocytosis ID following Cont Merrem Cont gentamicin Activity as guillermo D/C'd IVF Urology following- plan for lithotripsy after fungemia resolved Hypokalemia K 3.3 Replaced Monitor Replace PRN GI/DVT ppx Pepcid Heparin SCDs Dispo HHD Awaiting sensitivities per ID Plan for pt to be d/c'd on PO antifungal x 4 wks per sensitivies DW attending Joyce, PGY-1 <Lashanda Zuñiga - Last Filed: 07/11/17 18:28> Objective - Vital Signs/Intake and Output Vital Signs (last 24 hours): Temp Pulse Resp BP Pulse Ox 98.7 F 89 20 123/84 97 07/11/17 14:00 07/11/17 14:00 07/11/17 14:00 07/11/17 14:00 07/11/17 14:00 Intake and Output: 07/11/17 07/11/17 06:59 18:59 Intake Total 480 1260 Balance 480 1260 - Medications Medications: Current Medications Acetaminophen (Tylenol 325mg Tab) 650 mg PO Q4H PRN PRN Reason: Fever >100.4 F Last Admin: 07/09/17 21:32 Dose: 650 mg Famotidine (Pepcid) 20 mg PO BID [facility] Last Admin: 07/11/17 18:12 Dose: 20 mg Heparin Sodium (Porcine) (Heparin) 5,000 units SC Q12H [facility] PRN Reason: Protocol Last Admin: 07/11/17 15:12 Dose: 5,000 units Meropenem (Merrem Iv 1 Gm Premix) 50 mls @ 100 mls/hr IVPB Q8 [facility] PRN Reason: Protocol Last Admin: 07/11/17 14:01 Dose: 100 mls/hr Micafungin Sodium 100 mg/ (Sodium Chloride) 100 mls @ 100 mls/hr IV DAILY [facility] PRN Reason: Protocol Stop: 07/24/17 10:01 Last Admin: 07/11/17 10:17 Dose: 100 mls/hr Ondansetron HCl (Zofran Inj) 4 mg IVP Q6 PRN PRN Reason: Nausea/Vomiting - Labs Labs: 07/11/17 07:00 07/11/17 07:00 PT 12.7 SECONDS (9.4-12.5) H 07/08/17 12:13 INR 1.10 (0.93-1.08) H 07/08/17 12:13 APTT 19.7 Seconds (25.1-36.5) L 07/08/17 12:13 Attending/Attestation - Attestation I have personally seen and examined this patient.: Yes I have fully participated in the care of the patient.: Yes I have reviewed all pertinent clinical information, including history, physical exam and plan: Yes Notes (Text): 07/11/17 18:27 36 year old female with past medical history of nephrolithiasis who presented with right flank pain, nausea and vomiting. CT abd/pelvis showed large stone in the distal right ureter with severe hyponephrosis and hydroureter and perinephric/periureter stranding. Urology evaluation was appreciated and patient is s/p cystoscopy with right ureteral stent placement. Symptoms and leukocytosis have improved. Fever trend also has come down. UCx and BCx has grown yeast species and patient has been started on micafungin and meropenem. ID evaluation was appreciated who is recommending possibly 4 weeks of treatment. Echocardiogram is ordered. Will replete and repeat potassium for hypokalemia. Plan for possible lithotripsy once fever/fungemia clears up as per urology. Lashanda Zuñiga MD Hospitalist.
[2017-07-12] MEDS: Meropenem IV 1 gm in NS 50 ML IVPB SCH (06:16)
[2017-07-12 06:53] LABS: BASO # 0.02 K/mm3 (0.0-2.0); BASO % 0.3 % (0.0-3.0); EOS # 0.3 (0.0-0.7); EOS % 3.7 % (1.5-5.0); GRAN # 4.47 (1.4-6.5); GRAN % 58.5 % (50.0-68.0); HEMOGLOBIN 13.2 g/dL (12.0-16.0); LYMPH # 2.2 (1.2-3.4); LYMPH % 28.2 % (22.0-35.0); MEAN CELL VOLUME 81.4 fl (80.0-105.0); MEAN CORPUSCULAR HEMOGLOBIN 26.7 pg (25.0-35.0); MEAN CORPUSCULAR HGB CONC 32.8 g/dl (31.0-37.0); MEAN PLATELET VOLUME 10.9 fl (7.0-11.0); MONO # 0.7 (0.1-0.6); MONO % 9.3 % (1.0-6.0); RBC 4.94 10^6/uL (3.5-6.1); RED CELL DISTRIBUTION WIDTH 14.6 % (11.5-14.5); WHITE BLOOD COUNT 7.6 10^3/ul (4.5-11.0)
[2017-07-12 07:05] LABS: BLOOD UREA NITROGEN 17 mg/dL (7-21); CALCIUM 9.3 mg/dL (8.4-10.5); GFR AFRICAN-AMERICAN > 60; GFR NON-AFRICAN AMERICAN > 60
--- NOTE | 2017-07-12 09:28 | CARD ---
APPROVED REPORT EXAM: Two-dimensional and M-mode echocardiogram with Doppler and color Doppler. Other Information Quality : GoodRhythm : INDICATION Infection:Rule out subacute bacterial endocarditis 2D DIMENSIONS Left Atrium (2D)3.1 (1.6-4.0cm)IVSd1.1 (0.7-1.1cm) LVDd4.0 (3.9-5.9cm)PWd1.2 (0.7-1.1cm) LVDs2.7 (2.5-4.0cm)FS (%) 31.8 % LVEF (%)60.5 (>50%) M-Mode DIMENSIONS Aortic Root2.30 (2.2-3.7cm)Aortic Cusp Exc.1.90 (1.5-2.0cm) Aortic Valve AoV Peak Assxwysm032.0cm/Lottie Peak GR.7mmHg Mitral Valve MV E Spnypfgr09.7cm/sMV A Tpjqzeod03.5cm/sE/A ratio1.2 TDI E/Lateral E'0.0E/Medial E'0.0 Tricuspid Valve TR Peak [id number] [id number] Peak Gr.15mmHg [id number] LEFT VENTRICLE The left ventricle is normal size. There is normal left ventricular wall thickness. The left ventricular function is normal. The left ventricular ejection fraction is within the normal range. There is normal LV segmental wall motion. RIGHT VENTRICLE The right ventricle is normal size. ATRIA The left atrium size is normal. The right atrium size is normal. The interatrial septum is intact with no evidence for an atrial septal defect. AORTIC VALVE The aortic valve is normal in structure. MITRAL VALVE The mitral valve is normal in structure. Mitral regurgitation is trace. TRICUSPID VALVE The tricuspid valve is normal in structure. There is trace to mild tricuspid regurgitation. PULMONIC VALVE The pulmonic valve is not well visualized. GREAT VESSELS The aortic root is normal in size. PERICARDIAL EFFUSION There is no pericardial effusion. <Conclusion> The left ventricle is normal size. There is normal left ventricular wall thickness. The left ventricular function is normal. No vegetation seen.
[2017-07-12] MEDS: Micafungin 100 MG in Sodium Chloride 0.9% 100 ML IV SCH (09:44)
[2017-07-12] MEDS ORDERED: Potassium Chloride 20 mEq ER Tab PO STA (10:17)
--- NOTE | 2017-07-12 10:17 | CP.PCM.PN ---
<Brooke Ferreira - Last Filed: 07/12/17 15:28> Subjective - Date & Time of Evaluation Date of Evaluation: 07/12/17 Time of Evaluation: 10:17 - Subjective Subjective: Patient seen and examined at bedside. No acute events overnight. Denies fever, chills, nausea, vomiting, abdominal pain, leg swelling, dysuria, flank pain. Objective - Vital Signs/Intake and Output Vital Signs (last 24 hours): Temp Pulse Resp BP Pulse Ox 97.7 F 67 20 96/64 L 97 07/12/17 06:00 07/12/17 06:00 07/12/17 06:00 07/12/17 06:00 07/12/17 06:00 Intake and Output: 07/12/17 07/12/17 06:59 18:59 Intake Total 720 Balance 720 - Medications Medications: Current Medications Acetaminophen (Tylenol 325mg Tab) 650 mg PO Q4H PRN PRN Reason: Fever >100.4 F Last Admin: 07/09/17 21:32 Dose: 650 mg Famotidine (Pepcid) 20 mg PO BID [facility] Last Admin: 07/12/17 09:44 Dose: 20 mg Heparin Sodium (Porcine) (Heparin) 5,000 units SC Q12H [facility] PRN Reason: Protocol Last Admin: 07/12/17 06:16 Dose: 5,000 units Meropenem (Merrem Iv 1 Gm Premix) 50 mls @ 100 mls/hr IVPB Q8 [facility] PRN Reason: Protocol Last Admin: 07/12/17 06:16 Dose: 100 mls/hr Micafungin Sodium 100 mg/ (Sodium Chloride) 100 mls @ 100 mls/hr IV DAILY [facility] PRN Reason: Protocol Stop: 07/24/17 10:01 Last Admin: 07/12/17 09:44 Dose: 100 mls/hr Ondansetron HCl (Zofran Inj) 4 mg IVP Q6 PRN PRN Reason: Nausea/Vomiting Potassium Chloride (K-Dur 20 Meq Er Tab) 40 meq PO STAT STA Stop: 07/12/17 10:18 - Labs Labs: 07/12/17 06:00 07/12/17 06:00 PT 12.7 SECONDS (9.4-12.5) H 07/08/17 12:13 INR 1.10 (0.93-1.08) H 07/08/17 12:13 APTT 19.7 Seconds (25.1-36.5) L 07/08/17 12:13 - Constitutional Appears: Non-toxic, No Acute Distress - Head Exam Head Exam: ATRAUMATIC, NORMOCEPHALIC - Eye Exam Eye Exam: EOMI, PERRL. absent: Conjunctival injection, Nystagmus, Scleral icterus Pupil Exam: NORMAL ACCOMODATION, PERRL. absent: Fixed, Unequal - ENT Exam ENT Exam: Mucous Membranes Moist - Neck Exam Neck Exam: Full ROM - Respiratory Exam Respiratory Exam: Clear to Ausculation Bilateral, NORMAL BREATHING PATTERN. absent: Accessory Muscle Use, Rhonchi, Wheezes, Respiratory Distress, Stridor - Cardiovascular Exam Cardiovascular Exam: RRR, +S1, +S2. absent: Murmur - GI/Abdominal Exam GI & Abdominal Exam: Soft, Normal Bowel Sounds. absent: Distended, Firm, Guarding, Tenderness, Mass, Organomegaly, Rebound - Extremities Exam Extremities Exam: Normal Inspection. absent: Calf Tenderness, Pedal Edema - Back Exam Back Exam: NORMAL INSPECTION. 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 Urine culture 07/08 shows yeast , <10,000 CFU/ml - repeat blood and urine cultures 07/20 NTD - IV Mycamine - s/p 3 days of merrem, discontinued as per ID - ID on board. appreciate recs - HIV ab neg, RPR NR hemoglobin A1c 7.7 - Urology on board. S/p right ureteral stent. Okay to get lithotripsy after discharge Pyleonephritis: - afebrile, no leukocytosis - ID on board, appreciate recs. - Blood and urine culture positive for yeast - F/u repeat blood culture - C/w Merrem, Gentamicin - Activity as tolerated - Urology on board. S/p right ureteral stent yesterday. Plan for lithotripsy once fungemia is resolved. Hypokalemia - repleted, daily bmp GI/DVT ppx - Pepcid - Heparin - SCDs Heart healthy diet Dispo: pt to go home on IV Mycamine 100 mg IV daily x 2 weeks. Awaiting PICC line placement, SW arrangement of visiting nurse services for home antifungal. Case seen and discussed with Dr Zuñiga. Brooke Ferreira, PGY1 <Lashanda Zuñiga - Last Filed: 07/12/17 15:49> Objective - Vital Signs/Intake and Output Vital Signs (last 24 hours): Temp Pulse Resp BP Pulse Ox 98.2 F 92 H 20 134/94 H 98 07/12/17 14:00 07/12/17 14:00 07/12/17 14:00 07/12/17 14:00 07/12/17 14:00 Intake and Output: 07/12/17 07/12/17 06:59 18:59 Intake Total 720 1020 Balance 720 1020 - Medications Medications: Current Medications Acetaminophen (Tylenol 325mg Tab) 650 mg PO Q4H PRN PRN Reason: Fever >100.4 F Last Admin: 07/09/17 21:32 Dose: 650 mg Famotidine (Pepcid) 20 mg PO BID [facility] Last Admin: 07/12/17 09:44 Dose: 20 mg Heparin Sodium (Porcine) (Heparin) 5,000 units SC Q12H [facility] PRN Reason: Protocol Last Admin: 07/12/17 14:32 Dose: Not Given Micafungin Sodium 100 mg/ (Sodium Chloride) 100 mls @ 100 mls/hr IV DAILY [facility] PRN Reason: Protocol Stop: 07/24/17 10:01 Last Admin: 07/12/17 09:44 Dose: 100 mls/hr Ondansetron HCl (Zofran Inj) 4 mg IVP Q6 PRN PRN Reason: Nausea/Vomiting - Labs Labs: 07/12/17 06:00 07/12/17 06:00 PT 12.7 SECONDS (9.4-12.5) H 07/08/17 12:13 INR 1.10 (0.93-1.08) H 07/08/17 12:13 APTT 19.7 Seconds (25.1-36.5) L 07/08/17 12:13 Attending/Attestation - Attestation I have personally seen and examined this patient.: Yes I have fully participated in the care of the patient.: Yes I have reviewed all pertinent clinical information, including history, physical exam and plan: Yes Notes (Text): 07/12/17 15:47 36 year old female with past medical history of nephrolithiasis who presented with right flank pain, nausea and vomiting. CT abd/pelvis showed large stone in the distal right ureter with severe hyponephrosis and hydroureter and perinephric/periureter stranding. Patient was seen by urology and is s/p cystoscopy with right ureteral stent placement. Symptoms have improved and fever/leukocytosis have resolved. UCx and BCx has grown yeast species (sully glabrita) and patient has been started on micafungin and meropenem. Case was discussed with ID; patient will need at least 2 weeks iv therapy. Echocardiogram was negative for vegetations. Will replete and repeat potassium for hypokalemia. Plan for possible lithotripsy once fever/fungemia clears up as per urology. Lashanda Zuñiga MD Hospitalist.
--- NOTE | 2017-07-12 13:25 | CP.PCM.PN ---
Subjective - Date & Time of Evaluation Date of Evaluation: 07/12/17 Time of Evaluation: 12:55 - Subjective Subjective: No fevers, no more right flank pain, no nausea, no diarrhea. Objective - Vital Signs/Intake and Output Vital Signs (last 24 hours): Temp Pulse Resp BP Pulse Ox 97.7 F 67 20 96/64 L 97 07/12/17 06:00 07/12/17 06:00 07/12/17 06:00 07/12/17 06:00 07/12/17 06:00 Intake and Output: 07/12/17 07/12/17 06:59 18:59 Intake Total 720 Balance 720 - Medications Medications: Current Medications Acetaminophen (Tylenol 325mg Tab) 650 mg PO Q4H PRN PRN Reason: Fever >100.4 F Last Admin: 07/09/17 21:32 Dose: 650 mg Famotidine (Pepcid) 20 mg PO BID [facility] Last Admin: 07/12/17 09:44 Dose: 20 mg Heparin Sodium (Porcine) (Heparin) 5,000 units SC Q12H [facility] PRN Reason: Protocol Last Admin: 07/12/17 06:16 Dose: 5,000 units Micafungin Sodium 100 mg/ (Sodium Chloride) 100 mls @ 100 mls/hr IV DAILY [facility] PRN Reason: Protocol Stop: 07/24/17 10:01 Last Admin: 07/12/17 09:44 Dose: 100 mls/hr Ondansetron HCl (Zofran Inj) 4 mg IVP Q6 PRN PRN Reason: Nausea/Vomiting - Labs Labs: 07/12/17 06:00 07/12/17 06:00 PT 12.7 SECONDS (9.4-12.5) H 07/08/17 12:13 INR 1.10 (0.93-1.08) H 07/08/17 12:13 APTT 19.7 Seconds (25.1-36.5) L 07/08/17 12:13 - Constitutional Appears: Non-toxic - Head Exam Head Exam: NORMAL INSPECTION - ENT Exam ENT Exam: Mucous Membranes Moist - Neck Exam Neck Exam: absent: Lymphadenopathy, Meningismus - Respiratory Exam Respiratory Exam: absent: Rales - Cardiovascular Exam Cardiovascular Exam: +S1, +S2 - GI/Abdominal Exam GI & Abdominal Exam: Soft. absent: Tenderness - Back Exam Back Exam: absent: CVA tenderness (R) Assessment and Plan - Assessment and Plan (Free Text) Plan: Assessment Sepsis due to C. glabrata fungemia due to right sided pyelonephritis with hydroureter, hydronephrosis with nephrolithiasis S/P ureteral stent placement nephrolithiasis, slowly improving obesity with BMI 34 Plan continue Mycamine and d/c Merrem; repeat blood and urine cx are negative; 2D echo is negative for vegetations - patient will need at least 2 weeks of antifungal therapy - since repeat cultures are negative, patient may undergo ESWL patient will need repeat blood and urine cx after the weeks of Mycamine - although Mycamine is not standard to be used for Renea UTI's, there are several case series showing Mycamine's efficacy in clearing those infection, including pyelonephritis discussed with Dr. Zuñiga
[2017-07-13 07:10] LABS: BASO # 0.04 K/mm3 (0.0-2.0); BASO % 0.4 % (0.0-3.0); EOS # 0.3 (0.0-0.7); EOS % 3.1 % (1.5-5.0); GRAN # 5.43 (1.4-6.5); GRAN % 58.5 % (50.0-68.0); HEMOGLOBIN 13.9 g/dL (12.0-16.0); LYMPH # 2.6 (1.2-3.4); LYMPH % 27.8 % (22.0-35.0); MEAN CELL VOLUME 81.3 fl (80.0-105.0); MEAN CORPUSCULAR HEMOGLOBIN 26.5 pg (25.0-35.0); MEAN CORPUSCULAR HGB CONC 32.6 g/dl (31.0-37.0); MEAN PLATELET VOLUME 10.8 fl (7.0-11.0); MONO % 10.2 % (1.0-6.0); RBC 5.24 10^6/uL (3.5-6.1); RED CELL DISTRIBUTION WIDTH 14.5 % (11.5-14.5); WHITE BLOOD COUNT 9.3 10^3/ul (4.5-11.0)
[2017-07-13 07:27] LABS: BLOOD UREA NITROGEN 22 mg/dL (7-21); CALCIUM 9.4 mg/dL (8.4-10.5); GFR AFRICAN-AMERICAN > 60; GFR NON-AFRICAN AMERICAN > 60
[2017-07-13] MEDS: Micafungin 100 MG in Sodium Chloride 0.9% 100 ML IV SCH (11:00)
--- NOTE | 2017-07-13 11:10 | CP.PCM.PN ---
<Brooke Ferreira - Last Filed: 07/13/17 11:06> Subjective - Date & Time of Evaluation Date of Evaluation: 07/13/17 Time of Evaluation: 11:06 - Subjective Subjective: Brooke Ferreira, PGY1, Progress Note for Dr Zuñiga: Patient seen and examined at bedside. No acute events overnight. Denies fever, chills, nausea, vomiting, abdominal pain, leg swelling, dysuria, flank pain. Objective - Vital Signs/Intake and Output Vital Signs (last 24 hours): Temp Pulse Resp BP Pulse Ox 98 F 64 20 93/59 L 97 07/13/17 06:00 07/13/17 06:00 07/13/17 06:00 07/13/17 06:00 07/13/17 06:00 Intake and Output: 07/13/17 07/13/17 06:59 18:59 Intake Total 1560 Balance 1560 - Medications Medications: Current Medications Acetaminophen (Tylenol 325mg Tab) 650 mg PO Q4H PRN PRN Reason: Fever >100.4 F Last Admin: 07/09/17 21:32 Dose: 650 mg Famotidine (Pepcid) 20 mg PO BID [facility] Last Admin: 07/12/17 17:09 Dose: 20 mg Heparin Sodium (Porcine) (Heparin) 5,000 units SC Q12H [facility]AV PRN Reason: Protocol Last Admin: 07/13/17 05:37 Dose: 5,000 units Micafungin Sodium 100 mg/ (Sodium Chloride) 100 mls @ 100 mls/hr IV DAILY [facility] PRN Reason: Protocol Stop: 07/24/17 10:01 Last Admin: 07/12/17 09:44 Dose: 100 mls/hr Ondansetron HCl (Zofran Inj) 4 mg IVP Q6 PRN PRN Reason: Nausea/Vomiting - Labs Labs: 07/13/17 06:00 07/13/17 06:00 PT 12.7 SECONDS (9.4-12.5) H 07/08/17 12:13 INR 1.10 (0.93-1.08) H 07/08/17 12:13 APTT 19.7 Seconds (25.1-36.5) L 07/08/17 12:13 - Additional Findings Additional findings: - Constitutional Appears: Non-toxic, No Acute Distress - Head Exam Head Exam: ATRAUMATIC, NORMOCEPHALIC - Eye Exam Eye Exam: EOMI, PERRL. absent: Conjunctival injection, Nystagmus, Scleral icterus Pupil Exam: NORMAL ACCOMODATION, PERRL. absent: Fixed, Unequal - ENT Exam ENT Exam: Mucous Membranes Moist - Neck Exam Neck Exam: Full ROM - Respiratory Exam Respiratory Exam: Clear to Ausculation Bilateral, NORMAL BREATHING PATTERN. absent: Accessory Muscle Use, Rhonchi, Wheezes, Respiratory Distress, Stridor - Cardiovascular Exam Cardiovascular Exam: RRR, +S1, +S2. absent: Murmur - GI/Abdominal Exam GI & Abdominal Exam: Soft, Normal Bowel Sounds. absent: Distended, Firm, Guarding, Tenderness, Mass, Organomegaly, Rebound - Extremities Exam Extremities Exam: Normal Inspection. absent: Calf Tenderness, Pedal Edema - Back Exam Back Exam: NORMAL INSPECTION. 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 Urine culture 07/08 shows yeast , <10,000 CFU/ml - repeat blood and urine cultures 07/20 Neg for 48 hours - IV Mycamine - s/p 3 days of merrem, discontinued as per ID - ID on board. appreciate recs - HIV ab neg, RPR NR hemoglobin A1c 7.7 - Urology on board. S/p right ureteral stent. Okay to get lithotripsy after discharge Hypokalemia - resolved - monitor GI/DVT ppx - Pepcid - Heparin - SCDs Heart healthy diet Dispo: pt to go home on IV Mycamine 100 mg IV daily x 2 weeks. Awaiting PICC line placement, SW arrangement of visiting nurse services for home antifungal. Case seen and discussed with Dr Zuñiga. Brooke Ferreira, PGY1 <Lashanda Zuñiga - Last Filed: 07/13/17 11:28> Objective - Vital Signs/Intake and Output Vital Signs (last 24 hours): Temp Pulse Resp BP Pulse Ox 98 F 64 20 93/59 L 97 07/13/17 06:00 07/13/17 06:00 07/13/17 06:00 07/13/17 06:00 07/13/17 06:00 Intake and Output: 07/13/17 07/13/17 06:59 18:59 Intake Total 1560 Balance 1560 - Medications Medications: Current Medications Acetaminophen (Tylenol 325mg Tab) 650 mg PO Q4H PRN PRN Reason: Fever >100.4 F Last Admin: 07/09/17 21:32 Dose: 650 mg Famotidine (Pepcid) 20 mg PO BID [facility] Last Admin: 07/13/17 11:01 Dose: 20 mg Heparin Sodium (Porcine) (Heparin) 5,000 units SC Q12H [facility] PRN Reason: Protocol Last Admin: 07/13/17 05:37 Dose: 5,000 units Micafungin Sodium 100 mg/ (Sodium Chloride) 100 mls @ 100 mls/hr IV DAILY [facility]AV PRN Reason: Protocol Stop: 07/24/17 10:01 Last Admin: 07/13/17 11:00 Dose: 100 mls/hr Ondansetron HCl (Zofran Inj) 4 mg IVP Q6 PRN PRN Reason: Nausea/Vomiting - Labs Labs: 07/13/17 06:00 07/13/17 06:00 PT 12.7 SECONDS (9.4-12.5) H 07/08/17 12:13 INR 1.10 (0.93-1.08) H 07/08/17 12:13 APTT 19.7 Seconds (25.1-36.5) L 07/08/17 12:13 Attending/Attestation - Attestation I have personally seen and examined this patient.: Yes I have fully participated in the care of the patient.: Yes I have reviewed all pertinent clinical information, including history, physical exam and plan: Yes Notes (Text): 07/13/17 11:23 36 year old female with past medical history of nephrolithiasis who presented with right flank pain, nausea and vomiting. CT abd/pelvis showed large stone in the distal right ureter with severe hyponephrosis and hydroureter and perinephric/periureter stranding. Patient was seen by urology and is s/p cystoscopy with right ureteral stent placement. Symptoms have improved and fever/leukocytosis have resolved. UCx and BCx has grown yeast species (sully glabrata) and patient has been started on micafungin. Case was discussed with ID; patient will need at least 2 weeks iv therapy. Pending picc line placement. Echocardiogram was negative for vegetations. Patient will follow up with urology for outpatient lithotripsy. Lashanda Zuñiga MD Hospitalist.
--- NOTE | 2017-07-13 14:19 | CP.PCM.PN ---
Subjective - Date & Time of Evaluation Date of Evaluation: 07/13/17 Time of Evaluation: 10:45 - Subjective Subjective: No fevers, no right flank pain, no hematuria. Objective - Vital Signs/Intake and Output Vital Signs (last 24 hours): Temp Pulse Resp BP Pulse Ox 98.2 F 92 H 20 134/94 H 98 07/12/17 14:00 07/12/17 14:00 07/12/17 14:00 07/12/17 14:00 07/12/17 14:00 Intake and Output: 07/13/17 07/13/17 06:59 18:59 Intake Total 1560 Balance 1560 - Medications Medications: Current Medications Acetaminophen (Tylenol 325mg Tab) 650 mg PO Q4H PRN PRN Reason: Fever >100.4 F Last Admin: 07/09/17 21:32 Dose: 650 mg Famotidine (Pepcid) 20 mg PO BID [facility] Last Admin: 07/12/17 17:09 Dose: 20 mg Heparin Sodium (Porcine) (Heparin) 5,000 units SC Q12H [facility] PRN Reason: Protocol Last Admin: 07/13/17 05:37 Dose: 5,000 units Micafungin Sodium 100 mg/ (Sodium Chloride) 100 mls @ 100 mls/hr IV DAILY [facility] PRN Reason: Protocol Stop: 07/24/17 10:01 Last Admin: 07/12/17 09:44 Dose: 100 mls/hr Ondansetron HCl (Zofran Inj) 4 mg IVP Q6 PRN PRN Reason: Nausea/Vomiting - Labs Labs: 07/13/17 06:00 07/13/17 06:00 PT 12.7 SECONDS (9.4-12.5) H 07/08/17 12:13 INR 1.10 (0.93-1.08) H 07/08/17 12:13 APTT 19.7 Seconds (25.1-36.5) L 07/08/17 12:13 - Constitutional Appears: Chronically Ill - Head Exam Head Exam: NORMAL INSPECTION - ENT Exam ENT Exam: Mucous Membranes Moist - Neck Exam Neck Exam: absent: Meningismus - Respiratory Exam Respiratory Exam: Decreased Breath Sounds - Cardiovascular Exam Cardiovascular Exam: +S1, +S2 - GI/Abdominal Exam GI & Abdominal Exam: Soft. absent: Tenderness Assessment and Plan - Assessment and Plan (Free Text) Plan: Assessment Sepsis due to C. glabrata fungemia due to right sided pyelonephritis with hydroureter, hydronephrosis with nephrolithiasis S/P ureteral stent placement nephrolithiasis, slowly improving obesity with BMI 34 Plan continue Mycamine and d/c Merrem; repeat blood and urine cx are negative; 2D echo is negative for vegetations - patient will need at least 2 weeks of antifungal therapy - since repeat cultures are negative, patient may undergo ESWL patient will need repeat blood and urine cx after the weeks of Mycamine - although Mycamine is not standard to be used for Renea UTI's, there are several case series showing Mycamine's efficacy in clearing those infection, including pyelonephritis discussed with Dr. Zuñiga previously
[2017-07-13] MEDS ORDERED: TDAP Vaccine 0.5 mL Syr IM ONE (20:01)
[2017-07-14 07:32] LABS: BASO # 0.02 K/mm3 (0.0-2.0); BASO % 0.2 % (0.0-3.0); EOS # 0.3 (0.0-0.7); EOS % 2.2 % (1.5-5.0); GRAN # 7.12 (1.4-6.5); GRAN % 63.5 % (50.0-68.0); HEMOGLOBIN 14.3 g/dL (12.0-16.0); LYMPH # 2.9 (1.2-3.4); LYMPH % 25.9 % (22.0-35.0); MEAN CORPUSCULAR HEMOGLOBIN 27.1 pg (25.0-35.0); MEAN CORPUSCULAR HGB CONC 33.5 g/dl (31.0-37.0); MEAN PLATELET VOLUME 10.9 fl (7.0-11.0); MONO # 0.9 (0.1-0.6); MONO % 8.2 % (1.0-6.0); RBC 5.27 10^6/uL (3.5-6.1); RED CELL DISTRIBUTION WIDTH 14.4 % (11.5-14.5); WHITE BLOOD COUNT 11.2 10^3/ul (4.5-11.0)
[2017-07-14 07:50] LABS: BLOOD UREA NITROGEN 20 mg/dL (7-21); CALCIUM 9.7 mg/dL (8.4-10.5); GFR AFRICAN-AMERICAN > 60; GFR NON-AFRICAN AMERICAN > 60
[2017-07-14 08:33] VITALS: BP 102/68; PULSE 76; RESP 18; TEMP 98.1; O2SAT 97
[2017-07-14] MEDS: Micafungin 100 MG in Sodium Chloride 0.9% 100 ML IV SCH (11:23)
--- NOTE | 2017-07-14 11:48 | CP.PCM.PN ---
Subjective - Date & Time of Evaluation Date of Evaluation: 07/14/17 Time of Evaluation: 10:35 - Subjective Subjective: Patient is anxious to go home, no right flank pain, no abdominal pain, no fevers , no nausea or vomiting, no diarrhea. Objective - Vital Signs/Intake and Output Vital Signs (last 24 hours): Temp Pulse Resp BP Pulse Ox 98.1 F 76 18 102/68 97 07/14/17 06:00 07/14/17 06:00 07/14/17 06:00 07/14/17 06:00 07/14/17 06:00 Intake and Output: 07/14/17 07/14/17 06:59 18:59 Intake Total 540 Balance 540 - Medications Medications: Current Medications Acetaminophen (Tylenol 325mg Tab) 650 mg PO Q4H PRN PRN Reason: Fever >100.4 F Last Admin: 07/14/17 01:07 Dose: 650 mg Famotidine (Pepcid) 20 mg PO BID [facility] Last Admin: 07/13/17 18:49 Dose: 20 mg Heparin Sodium (Porcine) (Heparin) 5,000 units SC Q12H [facility] PRN Reason: Protocol Last Admin: 07/14/17 06:09 Dose: 5,000 units Micafungin Sodium 100 mg/ (Sodium Chloride) 100 mls @ 100 mls/hr IV DAILY [facility] PRN Reason: Protocol Stop: 07/24/17 10:01 Last Admin: 07/13/17 11:00 Dose: 100 mls/hr Ondansetron HCl (Zofran Inj) 4 mg IVP Q6 PRN PRN Reason: Nausea/Vomiting - Labs Labs: 07/14/17 07:00 07/14/17 07:00 PT 12.7 SECONDS (9.4-12.5) H 07/08/17 12:13 INR 1.10 (0.93-1.08) H 07/08/17 12:13 APTT 19.7 Seconds (25.1-36.5) L 07/08/17 12:13 - Constitutional Appears: Non-toxic - Head Exam Head Exam: NORMAL INSPECTION - Respiratory Exam Respiratory Exam: Decreased Breath Sounds - Cardiovascular Exam Cardiovascular Exam: +S1, +S2 - GI/Abdominal Exam GI & Abdominal Exam: Soft. absent: Tenderness - Back Exam Back Exam: absent: CVA tenderness (R) Assessment and Plan - Assessment and Plan (Free Text) Plan: Assessment Sepsis due to C. glabrata fungemia due to right sided pyelonephritis with hydroureter, hydronephrosis with nephrolithiasis S/P ureteral stent placement, clinically improving nephrolithiasis obesity with BMI 34 Plan continue Mycamine and d/c Merrem; repeat blood and urine cx are negative; 2D echo is negative for vegetations - patient will need at least 2 weeks of antifungal therapy - since repeat cultures are negative, patient may undergo ESWL patient will need repeat blood and urine cx after the 2 weeks of Mycamine - although Mycamine is not standard to be used for Renea UTI's, there are several case series showing Mycamine's efficacy in clearing those infection, including pyelonephritis discussed with Dr. Zuñiga previously
--- NOTE | 2017-07-14 14:40 | CP.PCM.DIS ---
<Jasson Moran - Last Filed: 07/15/17 07:25> Provider - Provider Date of Admission: 07/08/17 14:17 Attending physician: Toño Vital MD Primary care physician: Ilia Franks JD, MD Consults: SANGEETA - Jessenia Bain Time Spent in preparation of Discharge (in minutes): 55 Hospital Course - Lab Results Lab Results: Micro Results 07/10/17 10:00 Blood Blood Culture - Preliminary NO GROWTH AFTER 4 DAYS 07/10/17 09:30 Blood Blood Culture - Preliminary NO GROWTH AFTER 4 DAYS 07/08/17 21:37 Blood Blood Culture - Final NO GROWTH AFTER 5 DAYS 07/08/17 21:37 Blood Gram Stain - Final TEST NOT PERFORMED 07/10/17 16:40 Urine Urine Culture - Final No Growth (<1,000 CFU/ML) Most Recent Lab Values WBC 11.2 10^3/ul (4.5-11.0) H D 07/14/17 07:00 RBC 5.27 10^6/uL (3.5-6.1) 07/14/17 07:00 Hgb 14.3 g/dL (12.0-16.0) 07/14/17 07:00 Hct 42.7 % (36.0-48.0) 07/14/17 07:00 MCV 81.0 fl (80.0-105.0) 07/14/17 07:00 MCH 27.1 pg (25.0-35.0) 07/14/17 07:00 MCHC 33.5 g/dl (31.0-37.0) 07/14/17 07:00 RDW 14.4 % (11.5-14.5) 07/14/17 07:00 Plt Count 319 10^3/uL (120.0-450.0) 07/14/17 07:00 MPV 10.9 fl (7.0-11.0) 07/14/17 07:00 Gran % 63.5 % (50.0-68.0) 07/14/17 07:00 Lymph % (Auto) 25.9 % (22.0-35.0) 07/14/17 07:00 [place] % (Auto) 8.2 % (1.0-6.0) H 07/14/17 07:00 Eos % (Auto) 2.2 % (1.5-5.0) 07/14/17 07:00 Baso % (Auto) 0.2 % (0.0-3.0) 07/14/17 07:00 Gran # 7.12 (1.4-6.5) H 07/14/17 07:00 Lymph # (Auto) 2.9 (1.2-3.4) 07/14/17 07:00 [place] # (Auto) 0.9 (0.1-0.6) H 07/14/17 07:00 Eos # (Auto) 0.3 (0.0-0.7) 07/14/17 07:00 Baso # (Auto) 0.02 K/mm3 (0.0-2.0) 07/14/17 07:00 Neutrophils % (Manual) 91 % (50.0-70.0) H 07/08/17 12:13 Lymphocytes % (Manual) 5 % (22.0-35.0) L 07/08/17 12:13 Monocytes % (Manual) 4 % (1.0-6.0) 07/08/17 12:13 Platelet Evaluation Normal (NORMAL) 07/08/17 12:13 Anisocytosis (manual) Slight 07/08/17 12:13 Microcytosis (manual) Slight 07/08/17 12:13 PT 12.7 SECONDS (9.4-12.5) H 07/08/17 12:13 INR 1.10 (0.93-1.08) H 07/08/17 12:13 APTT 19.7 Seconds (25.1-36.5) L 07/08/17 12:13 Sodium 142 mmol/L (132-148) 07/14/17 07:00 Potassium 4.1 mmol/L (3.6-5.0) 07/14/17 07:00 Chloride 104 mmol/L (98-107) 07/14/17 07:00 Carbon Dioxide 24 mmol/L (21-33) 07/14/17 07:00 Anion Gap 18 (10-20) 07/14/17 07:00 BUN 20 mg/dL (7-21) 07/14/17 07:00 Creatinine 0.6 mg/dl (0.7-1.2) L 07/14/17 07:00 Est GFR ( Amer) > 60 07/14/17 07:00 Est GFR (Non-Af Amer) > 60 07/14/17 07:00 POC Glucose (mg/dL) 189 mg/dL (65-110) H 07/14/17 11:28 Random Glucose 178 mg/dL (70-110) H 07/14/17 07:00 Hemoglobin A1c 7.7 % (4.2-6.5) H 07/10/17 13:00 Calcium 9.7 mg/dL (8.4-10.5) 07/14/17 07:00 Magnesium 1.8 mg/dL (1.7-2.2) 07/08/17 12:13 Total Bilirubin 0.6 mg/dL (0.2-1.3) 07/08/17 12:13 AST 31 U/L (14-36) 07/08/17 12:13 ALT 43 U/L (7-56) 07/08/17 12:13 Alkaline Phosphatase 107 U/L (38-126) 07/08/17 12:13 Total Protein 7.2 g/dL (5.8-8.3) 07/08/17 12:13 Albumin 4.1 g/dL (3.0-4.8) 07/08/17 12:13 Globulin 3.1 gm/dL 07/08/17 12:13 Albumin/Globulin Ratio 1.3 (1.1-1.8) 07/08/17 12:13 Lipase 16 U/L (23-300) L 07/08/17 12:13 Urine Color Yellow (YELLOW) 07/08/17 12:13 Urine Appearance Clear (CLEAR) 07/08/17 12:13 Urine pH 7.0 (4.7-8.0) 07/08/17 12:13 Ur Specific [place] 1.020 (1.005-1.035) 07/08/17 12:13 Urine Protein 30 mg/dL (<30 mg/dL) H 07/08/17 12:13 Urine Glucose (UA) Negative mg/dL (NEGATIVE) 07/08/17 12:13 Urine Ketones Negative mg/dL (NEGATIVE) 07/08/17 12:13 Urine Blood Moderate (NEGATIVE) H 07/08/17 12:13 Urine Nitrate Negative (NEGATIVE) 07/08/17 12:13 Urine Bilirubin Negative (NEGATIVE) 07/08/17 12:13 Urine Urobilinogen 1.0 E.U./dL (<1 E.U./dL) H 07/08/17 12:13 Ur Leukocyte Esterase Trace Christine/uL (NEGATIVE) H 07/08/17 12:13 Urine RBC 25 - 30 /hpf (0-2) 07/08/17 12:13 Urine WBC 5 - 10 /hpf (0-6) 07/08/17 12:13 Ur Epithelial Cells 6 - 8 /hpf (0-5) 07/08/17 12:13 Amorphous Sediment Few 07/08/17 12:13 Urine Bacteria Many (NEG) 07/08/17 12:13 Urine Other Uyeast 07/08/17 12:13 RPR Nonreactive (NONREACTIVE) 07/10/17 13:00 HIV 1&2 Ag/Ab, 4th Gen Nonreactive (Nonreactive) 07/10/17 13:30 - Hospital Course Hospital Course: As per admission documentation 36F w/PMH sig for nephrolithiasis admitted for Right flank pain x 1 day. Pt reports sudden onset of moderate-severe right flank pain at approximately 11pm on day prior to evaluation, with radiation to right lower quadrant of abdomen, constant since onset, no alleviated by Aleve. Admits to insomnia due to pain, N , V x 1 (nb, bilious), urinary frequency, chills, fatigue, dry mouth, occasional LE swelling (stands 5 hrs for work). Last BM on day of admission ( normal). Denies hematuria, fevers, constipation, diarrhea, decreased urinary stream, dysuria, changes in eating habits, ESQUIVEL, vision changes, SOB, chest pain, other complaints. In ED CT abdomen w/large stone in the right distal ureter with severe hydronephrosis and hydroureter. The stone measures 7 mm diameter and 12 mm in length. There is a moderate amount of perinephric and periureteral stranding. Leukocytosis of 19.4. Afebrile. Hospital Course Patient was admitted for Pyleonephritis 04/04 to nephrolithiasis. Urology consulted, Dr. Annia Bain. ID consulted, Dr. Ruelas consulted. Patient was initially started on Merrem but was discontinued by ID after 3 days by ID. Blood culture 07/08 (03/04) shows Sully Glabrita. Urine culture 07/08 shows yeast, < 10,000 CFU/ml. Repeat blood and urine cultures on 07/20 Neg for 48 hours prior to the patient being discharged. Patient was started on Micafungin on 07/09. Urology placed a right sided ureter stent on 07/09. Patient's symptoms had improved and lithotripsy was planned for out patient. Patient had a PICC line placed and was discharged with instructions to continue Micafungin treatment as an outpatient for 2 weeks. Discharge Instructions - Continue with IV mycamine 100 mg daily for 2 weeks. Weekly CBC and CMP. - Repeat blood and urine culture after 2 weeks. - Follow up with urology Dr Bain outpatient for lithotripsy and any additional procedure. - Follow up with Dr Franks in 1 week. - Return to ER for any concerns. Discharge Exam - Head Exam Head Exam: NORMAL INSPECTION - Eye Exam Eye Exam: EOMI, Normal appearance - ENT Exam ENT Exam: Mucous Membranes Moist - Respiratory Exam Respiratory Exam: Clear to PA & Lateral, NORMAL BREATHING PATTERN, UNREMARKABLE. absent: Accessory Muscle Use, Rales, Rhonchi, Wheezes, Respiratory Distress - Cardiovascular Exam Cardiovascular Exam: REGULAR RHYTHM, +S1, +S2 - GI/Abdominal Exam GI & Abdominal Exam: Normal Bowel Sounds, Soft, Unremarkable. absent: Distended , Firm, Guarding, Rigid, Tenderness - Extremities Exam Extremities exam: normal inspection, pedal pulses present - Back Exam Back exam: CVA tenderness (L) (mild - "greatly improved", per patient), CVA tenderness (R) (mild - "greatly improved", per patient) - Neurological Exam Neurological exam: Alert, Normal Gait, Oriented x3 - Psychiatric Exam Psychiatric exam: Normal Affect, Normal Mood - Skin Skin Exam: Dry, Normal Color Discharge Plan - Discharge Medications Prescriptions: Micafungin [Mycamine] 100 mg IV DAILY 14 Days vial - Follow Up Plan Condition: FAIR Disposition: HOME/ ROUTINE Instructions: Urinary Tract Infections in Adults, Kidney Stones in Adults, Hydronephrosis in Adults, Hydronephrosis, Adult (DC), Urinary Tract Infection in Women (DC), Urinary Tract Infection in Men (DC), Dysuria (GEN) Additional Instructions: - Continue with IV mycamine 100 mg daily for 2 weeks. Weekly CBC and CMP. - Repeat blood and urine culture after 2 weeks. - Follow up with urology Dr Bain outpatient for lithotripsy and any additional procedure. - Follow up with Dr Franks in 1 week. - Return to ER for any concerns. Referrals: Ilia Franks JD, MD [Primary Care Provider] - <Toño Vital - Last Filed: 07/15/17 07:56> Provider - Provider Date of Admission: 07/08/17 14:17 Attending physician: Toño Vital MD Primary care physician: Ilia Franks JD, MD Hospital Course - Lab Results Lab Results: Micro Results 07/10/17 10:00 Blood Blood Culture - Preliminary NO GROWTH AFTER 4 DAYS 07/10/17 09:30 Blood Blood Culture - Preliminary NO GROWTH AFTER 4 DAYS 07/08/17 21:37 Blood Blood Culture - Final NO GROWTH AFTER 5 DAYS 07/08/17 21:37 Blood Gram Stain - Final TEST NOT PERFORMED 07/10/17 16:40 Urine Urine Culture - Final No Growth (<1,000 CFU/ML) Most Recent Lab Values WBC 11.2 10^3/ul (4.5-11.0) H D 07/14/17 07:00 RBC 5.27 10^6/uL (3.5-6.1) 07/14/17 07:00 Hgb 14.3 g/dL (12.0-16.0) 07/14/17 07:00 Hct 42.7 % (36.0-48.0) 07/14/17 07:00 MCV 81.0 fl (80.0-105.0) 07/14/17 07:00 MCH 27.1 pg (25.0-35.0) 07/14/17 07:00 MCHC 33.5 g/dl (31.0-37.0) 07/14/17 07:00 RDW 14.4 % (11.5-14.5) 07/14/17 07:00 Plt Count 319 10^3/uL (120.0-450.0) 07/14/17 07:00 MPV 10.9 fl (7.0-11.0) 07/14/17 07:00 Gran % 63.5 % (50.0-68.0) 07/14/17 07:00 Lymph % (Auto) 25.9 % (22.0-35.0) 07/14/17 07:00 [place] % (Auto) 8.2 % (1.0-6.0) H 07/14/17 07:00 Eos % (Auto) 2.2 % (1.5-5.0) 07/14/17 07:00 Baso % (Auto) 0.2 % (0.0-3.0) 07/14/17 07:00 Gran # 7.12 (1.4-6.5) H 07/14/17 07:00 Lymph # (Auto) 2.9 (1.2-3.4) 07/14/17 07:00 [place] # (Auto) 0.9 (0.1-0.6) H 07/14/17 07:00 Eos # (Auto) 0.3 (0.0-0.7) 07/14/17 07:00 Baso # (Auto) 0.02 K/mm3 (0.0-2.0) 07/14/17 07:00 Neutrophils % (Manual) 91 % (50.0-70.0) H 07/08/17 12:13 Lymphocytes % (Manual) 5 % (22.0-35.0) L 07/08/17 12:13 Monocytes % (Manual) 4 % (1.0-6.0) 07/08/17 12:13 Platelet Evaluation Normal (NORMAL) 07/08/17 12:13 Anisocytosis (manual) Slight 07/08/17 12:13 Microcytosis (manual) Slight 07/08/17 12:13 PT 12.7 SECONDS (9.4-12.5) H 07/08/17 12:13 INR 1.10 (0.93-1.08) H 07/08/17 12:13 APTT 19.7 Seconds (25.1-36.5) L 07/08/17 12:13 Sodium 142 mmol/L (132-148) 07/14/17 07:00 Potassium 4.1 mmol/L (3.6-5.0) 07/14/17 07:00 Chloride 104 mmol/L (98-107) 07/14/17 07:00 Carbon Dioxide 24 mmol/L (21-33) 07/14/17 07:00 Anion Gap 18 (10-20) 07/14/17 07:00 BUN 20 mg/dL (7-21) 07/14/17 07:00 Creatinine 0.6 mg/dl (0.7-1.2) L 07/14/17 07:00 Est GFR ( Amer) > 60 07/14/17 07:00 Est GFR (Non-Af Amer) > 60 07/14/17 07:00 POC Glucose (mg/dL) 189 mg/dL (65-110) H 07/14/17 11:28 Random Glucose 178 mg/dL (70-110) H 07/14/17 07:00 Hemoglobin A1c 7.7 % (4.2-6.5) H 07/10/17 13:00 Calcium 9.7 mg/dL (8.4-10.5) 07/14/17 07:00 Magnesium 1.8 mg/dL (1.7-2.2) 07/08/17 12:13 Total Bilirubin 0.6 mg/dL (0.2-1.3) 07/08/17 12:13 AST 31 U/L (14-36) 07/08/17 12:13 ALT 43 U/L (7-56) 07/08/17 12:13 Alkaline Phosphatase 107 U/L (38-126) 07/08/17 12:13 Total Protein 7.2 g/dL (5.8-8.3) 07/08/17 12:13 Albumin 4.1 g/dL (3.0-4.8) 07/08/17 12:13 Globulin 3.1 gm/dL 07/08/17 12:13 Albumin/Globulin Ratio 1.3 (1.1-1.8) 07/08/17 12:13 Lipase 16 U/L (23-300) L 07/08/17 12:13 Urine Color Yellow (YELLOW) 07/08/17 12:13 Urine Appearance Clear (CLEAR) 07/08/17 12:13 Urine pH 7.0 (4.7-8.0) 07/08/17 12:13 Ur Specific [place] 1.020 (1.005-1.035) 07/08/17 12:13 Urine Protein 30 mg/dL (<30 mg/dL) H 07/08/17 12:13 Urine Glucose (UA) Negative mg/dL (NEGATIVE) 07/08/17 12:13 Urine Ketones Negative mg/dL (NEGATIVE) 07/08/17 12:13 Urine Blood Moderate (NEGATIVE) H 07/08/17 12:13 Urine Nitrate Negative (NEGATIVE) 07/08/17 12:13 Urine Bilirubin Negative (NEGATIVE) 07/08/17 12:13 Urine Urobilinogen 1.0 E.U./dL (<1 E.U./dL) H 07/08/17 12:13 Ur Leukocyte Esterase Trace Christine/uL (NEGATIVE) H 07/08/17 12:13 Urine RBC 25 - 30 /hpf (0-2) 07/08/17 12:13 Urine WBC 5 - 10 /hpf (0-6) 07/08/17 12:13 Ur Epithelial Cells 6 - 8 /hpf (0-5) 07/08/17 12:13 Amorphous Sediment Few 07/08/17 12:13 Urine Bacteria Many (NEG) 07/08/17 12:13 Urine Other Uyeast 07/08/17 12:13 RPR Nonreactive (NONREACTIVE) 07/10/17 13:00 HIV 1&2 Ag/Ab, 4th Gen Nonreactive (Nonreactive) 07/10/17 13:30 Attending/Attestation - Attestation I have personally seen and examined this patient.: Yes I have fully participated in the care of the patient.: Yes I have reviewed all pertinent clinical information, including history, physical exam and plan: Yes Notes (Text): 07/15/17 07:54 Attending note; Patient seen and examined with resident. Patient is a 36 year old female with past medical history of nephrolithiasis who presented with right flank pain, nausea and vomiting. CT abd/pelvis showed large stone in the distal right ureter with severe hyponephrosis and hydroureter and perinephric/periureter stranding. s/p cystoscopy with right ureteral stent placement. Symptoms have improved and fever/leukocytosis have resolved. UCx and BCx has grown yeast species (sully glabrata) and patient has been started on micafungin. Case was discussed with ID; patient will need at least 2 weeks iv therapy. Status post PICC line placement . Case discussed with case loader operator for outpatient IV therapy. Echocardiogram was negative for vegetations. Patient will follow up with urology Dr. Bain for outpatient lithotripsy. Patient will be discharged home today. Follow-up with PMD Dr. Brown in 1 week thank Diagnosis; Status post ureteral stent Sully UTI/bacteremia
== END 2017-07-14 15:07 | disposition home health service (06) | DRG 901 ==
LOC: ED 10:07 → ERH 14:17 → 5RNO 17:03
PROVIDERS: ADMIT Internal Medicine; ATTEND Internal Medicine
PROC: BT1D1ZZ Fluoroscopy of Right Kidney, Ureter and Bladder using Low Osmolar Contrast (ICD-10-PCS; 2017-07-09)
PROC: 0T768DZ Dilation of Right Ureter with Intraluminal Device, Via Natural or Artificial Opening Endoscopic (ICD-10-PCS; principal; 2017-07-09 11:45)
PROC: 02HV33Z Insertion of Infusion Device into Superior Vena Cava, Percutaneous Approach (ICD-10-PCS; 2017-07-14)
PROC: B54MZZA Ultrasonography of Right Upper Extremity Veins, Guidance (ICD-10-PCS; 2017-07-14)
DX: B37.7 Candidal sepsis (principal); N13.6 Pyonephrosis; E87.6 Hypokalemia; H91.91 Unspecified hearing loss, right ear; E66.9 Obesity, unspecified; Z68.34 Body mass index [BMI] 34.0-34.9, adult

== ENCOUNTER 2017-12-20 15:36 | Emergency (ER) | payer MEDICAID, OTHER ==
[2017-12-20 15:55] VITALS: BMI 32.7
[2017-12-20 16:02] VITALS: RESP 18; TEMP 97.8
--- NOTE | 2017-12-20 16:08 | ED PDOC ---
Arrival/HPI - General Chief Complaint: Flu-like Symptoms Time Seen by Provider: 12/20/17 15:37 Historian: Patient - History of Present Illness Narrative History of Present Illness (Text): 12/20/17 16:00 Patient is a 37 year old female who presents to the Emergency department with her fiancee complaining of flu like symptoms that started last night and is worse today. Patient reports feeling like she has the flu, and is complaining of a headache, rhinorrhea, nonproductive cough. Patient notes shortness of breath. She reports that she hasn't taken any medications to help with her symptoms. Of note per patient, her last normal menstrual period finished 3 days ago. Patient denies any known drug allergies, and denies smoking or drinking EtOH. Patient denies fevers, chills, dyspnea on exertion, abdominal pain, nausea, vomiting, diarrhea, back pain, neck pain, dizziness, or any other complaint. Time/Duration: Other (last night) Symptom Onset: Gradual Symptom Course: Worsening Context: Home Associated Symptoms (Text): 12/20/17 16:31 Patient complains of a cough congestion and URI shortness of breath stuffy nose and runny nose earaches sore throat beginning last evening and becoming worse today. No sputum. No fever or chills. No myalgias or arthralgias. She does not appear ill. Past Medical History - Provider Review Nursing Documentation Reviewed: Yes - Infectious Disease Hx of Infectious Diseases: None - Tetanus Immunization Tetanus Immunization: Unknown - Past Medical History Past Medical History: No Previous - Cardiac Hx Pacemaker: No - Pulmonary Hx Respiratory Disorders: No - Neurological Hx Neurological Disorder: No - HEENT Hx HEENT Disorder: Yes Hx Deafness: Yes Other/Comment: HEARING IMPAIRED-hearing aide - Renal Hx Renal Disorder: Yes (stents x 2) Hx Kidney Stones: Yes (7x12 mm stone. 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 - Musculoskeletal/Rheumatological Hx Musculoskeletal Disorders: No Hx Falls: No - Gastrointestinal Hx Gastrointestinal Disorders: Yes - Genitourinary/Gynecological Hx Genitourinary Disorders: Yes (c/sx 1) Hx Urinary Tract Infection: Yes - Psychiatric Hx Psychophysiologic Disorder: No Hx Substance Use: No - Past Surgical History Past Surgical History: No Previous - Surgical History Hx Mastectomy: No - Anesthesia Hx Anesthesia Reactions: No Hx Malignant Hyperthermia: No - Suicidal Assessment Feels Threatened In Home Enviroment: No Family/Social History - Physician Review Nursing Documentation Reviewed: Yes Family/Social History: No Known Family HX Smoking Status: Never Smoked Hx Alcohol Use: Yes (social beer) Hx Substance Use: No Hx Substance Use Treatment: No Allergies/Home Meds Allergies/Adverse Reactions: Allergies No Known Allergies Allergy (Verified 07/08/17 17:14) Review of Systems - Physician Review All systems were reviewed & negative as marked: Yes - Review of Systems Constitutional: Fatigue. absent: Fevers, Other (chills) ENT: Rhinorrhea Respiratory: SOB, Cough. absent: Sputum, Wheezing Cardiovascular: absent: Chest Pain, Palpitations, Syncope Gastrointestinal: absent: Abdominal Pain, Diarrhea, Nausea, Vomiting Genitourinary Female: absent: Dysuria, Frequency, Hematuria, Urine Output Changes Musculoskeletal: absent: Back Pain, Neck Pain Neurological: Headache. absent: Dizziness, Focal Weakness Physical Exam Vital Signs Reviewed: Yes Temperature: Afebrile Blood Pressure: Normal Pulse: Regular Respiratory Rate: Normal Appearance: Positive for: Well-Appearing Mental Status: Positive for: Alert and Oriented X 3 - Systems Exam Head: Present: Atraumatic, Normocephalic Pupils: Present: PERRL Extroacular Muscles: Present: EOMI Conjunctiva: Present: Normal Ears: Present: Normal, NORMAL TM, Normal Canal. No: Erythema, TM Bulging Mouth: Present: Moist Mucous Membranes Pharnyx: Present: ERYTHEMA (Mild pharyngeal injection). No: EXUDATE, TONSILS ENLARGED, Peritonsilar Swelling, Muffled/Hoarse Voice, Soft Palate/Uvular Edema, Other (peritonsillar mass) Nose (Internal): Present: Other (congested) Neck: Present: Normal Range of Motion Respiratory/Chest: Present: Clear to Auscultation, Good Air Exchange. No: Respiratory Distress, Accessory Muscle Use Cardiovascular: Present: Regular Rate and Rhythm, Normal S1, S2. No: Murmurs Abdomen: No: Tenderness, Distention, Peritoneal Signs Back: Present: Normal Inspection Upper Extremity: Present: Normal Inspection. No: Cyanosis, Edema Lower Extremity: Present: Normal Inspection. No: Edema Neurological: Present: GCS=15, CN II-XII Intact, Speech Normal Skin: Present: Warm, Dry, Normal Color. No: Rashes Psychiatric: Present: Alert, Oriented x 3, Normal Insight, Normal Concentration Medical Decision Making ED Course and Treatment: 12/20/17 16:00 Impression: 37 year old female complaining of nonprductive cough, headache, rhinorrhea, which started last night and worsened today. Plan: -- Tylenol -- Rapid Flu and Strep test -- Reassess and disposition Prior Visits: Notes and results from previous visits were reviewed. Progress Notes: 12/20/17 16:34 12/20/17 16:42 Influenza A and B and rapid strep are both negative. No indication that this is a bacterial infection at this time. Patient will be treated symptomatically and she already has an appointment scheduled with her PMD, Dr Franks, in 2 days. Follow-up in the ER as needed. - Lab Interpretations I have reviewed the lab results: Yes - Scribe Statement The provider has reviewed the documentation as recorded by the Ramonaibelis Steele Provider Scribe Attestation: All medical record entries made by the Scribe were at my direction and personally dictated by me. I have reviewed the chart and agree that the record accurately reflects my personal performance of the history, physical exam, medical decision making, and the department course for this patient. I have also personally directed, reviewed, and agree with the discharge instructions and disposition. Disposition/Present on Arrival - Present on Arrival Any Indicators Present on Arrival: No History of DVT/PE: No History of Uncontrolled Diabetes: No Urinary Catheter: No History of Decub. Ulcer: No History Surgical Site Infection Following: None - Disposition Have Diagnosis and Disposition been Completed?: Yes Diagnosis: Upper respiratory infection Disposition: HOME/ ROUTINE Disposition Time: 16:44 Patient Plan: Discharge Condition: GOOD Discharge Instructions (ExitCare): Viral Upper Respiratory Infection, Adult (DC) Additional Instructions: Symptomatic treatment. Tylenol or Advil as directed on bottle as needed. Cepacol or Cepastat as directed on bottle as needed. Keep appointment with Dr. Franks already scheduled in 2 days. Follow up in ER as needed. Prescriptions: Benzonatate [Tessalon Perles] 100 mg PO Q8 #30 sgl Forms: [facility] ([place]ic), WORK NOTE
[2017-12-20 16:41] LABS: INFLUENZA A B NEGATIVE FOR FLU A/B (NEGATIVE)
[2017-12-20 16:47] VITALS: BP 132/78; PULSE 87; O2SAT 97
== END 2017-12-20 16:49 | disposition home or self-care (01) ==
LOC: ED 15:36
DX: J06.9 Acute upper respiratory infection, unspecified (principal)